=== PATIENT | male | born 1955 | race Caucasian/White ===

== ENCOUNTER 2017-06-29 11:30 | Inpatient (IN) | payer OTHER ==
[~2017-06-29] VITALS: Ht 180.3 cm; Wt 106.6 kg
[~2017-06-29 11:30] MED LIST: ASPIR 8181 MG PO; CALCITRIOL0.25 MCG PO; CLONIDINE HCL0.1 MG PO; DOXYCYCLINE HY100 M3; FLUDROCORTISON0.1 MG PO; FOLIC ACID0.4 MG; FOLIC ACID0.4 MG PO; IMDUR30 MG PO; ISOSORBIDE DINI20 MG; LEG-GESIC MULT473 ML; LEVEMIR 3M100 UNITS/ SC; LINEZOLID PO; LOPRESSOR25 MG; MAGOX 400400 MG PO; MEPERIDINE HCL50 MG PO; METOPROLOL TART25 MG PO; NEXIUM40 MG; NEXIUM40 MG PO; NIFEDIPINE ER30 M1 PO; NIFEDIPINE20 MG; NITROGLYCERIN0.4 MG; PRAVASTATIN SOD40 MG PO; REGLAN10 MG PO; REGLAN5 MG PO; SIMVASTATIN20 MG PO; SODIUM BICARBO650 MG PO; SODIUM BICARBON; STERIOD
--- OUTSIDE RECORDS SUMMARY | 2017-06-29 11:34 | XMS REPORT | Clinical Summary ---
Author Author [facility] Address Unknown Phone Unavailable Care Team Providers Care Clean Out Driller Name Role Phone Jesus Corbin MD PCP Allergies Active Allergy Reactions Severity Noted Date Comments Sulfamethoxazole-Trimetho Other (See Comments) 08/02/2016 Hypertension prim Clindamycin Other (See Comments) Medium 08/02/2016 Hypertension Codeine Shortness Of Breath High 08/02/2016 Fludrocortisone Other (See Comments) 11/03/2016 Hypertension Furosemide Other (See Comments) Medium 08/02/2016 hypertension Lisinopril Other (See Comments) Medium 08/02/2016 hypertension Morphine Shortness Of Breath High 08/02/2016 Hydrocodone-Acetaminophen Shortness Of Breath High 08/02/2016 Current Medications Prescription Sig. Disp. Refills Start End Date Status Date clonIDINE (CATAPRES) 0.1 Take 0.1 mg by mouth Active MG tablet daily as needed for high blood pressure (Hold for SBP<160). NIFEdipine XL (PROCARDIA Take 60 mg by mouth 2 Active XL) 30 MG 24 hr tablet (two) times a day. loperamide (IMODIUM) 2 mg Take 2 mg by mouth 3 Active capsule (three) times a week. On daialysis day([id number]) insulin lispro (HumaLOG) Inject under the skin 3 Active 100 unit/mL injection (three) times a day before meals. Sliding scale metoclopramide (REGLAN) Take 10 mg by mouth Active 10 MG tablet daily. NIFEdipine CC (ADALAT CC) Take 60 mg by mouth 2 11/04/19 Discontin 60 MG 24 hr tablet (two) times a day. 17 ued linezolid (ZYVOX) 600 mg Take 600 mg by mouth 2 11/04/19 12/19/19 tablet (two) times a day. 17 17 sodium bicarbonate 648 MG Take 648 mg by mouth 2 04/26/19 Discontin tablet (two) times a day. 18 ued metoprolol tartrate Take 25 mg by mouth daily 11/04/19 Discontin (LOPRESSOR) 25 mg tablet as needed. 17 ued atorvastatin (LIPITOR) 20 Take 20 mg by mouth 04/26/19 Discontin MG tablet nightly. Default OP ins 18 ued metoprolol tartrate Take 1 tablet (25 mg 60 tablet 0 11/06/19 (LOPRESSOR) 25 mg tablet total) by mouth 2 (two) 17 17 times a day for 30 days. NIFEdipine XL (PROCARDIA Take 1 tablet (60 mg 60 tablet 0 11/06/19 12/06/19 XL) 60 MG 24 hr tablet total) by mouth 2 (two) 17 17 times a day for 30 days. LINEZOLID (ZYVOX ORAL) Take by mouth. 02/12/20 Discontin 17 ued acetaminophen (TYLENOL) Take 2 tablets (650 mg 30 tablet 1 02/12/20 03/13/20 325 MG tablet total) by mouth every 6 17 17 (six) hours as needed for mild pain for up to 30 days. loperamide (IMODIUM) 2 mg Take 1 capsule (2 mg 12 capsule 1 02/12/20 02/29/20 Discontin capsule total) by mouth 4 (four) 17 17 ued times a day as needed for diarrhea for up to 30 days. ondansetron ODT Take 1 tablet (4 mg 24 tablet 1 02/12/20 02/29/20 Discontin (ZOFRAN-ODT) 4 MG total) by mouth every 8 17 17 ued disintegrating tablet (eight) hours as needed for nausea or vomiting for up to 30 days. clonIDINE (CATAPRES) 0.1 Take 1 tablet (0.1 mg 90 tablet 0 02/12/20 03/13/20 MG tablet total) by mouth 3 (three) 17 17 times a day for 30 days. clonIDINE HCl (CATAPRES) Take 1 tablet (0.2 mg 24 tablet 1 02/12/20 02/29/20 Discontin 0.2 MG tablet total) by mouth 3 (three) 17 17 ued times a day as needed for high blood pressure (if SBP>180) for up to 30 days. calcium gluconate 1 g in Infuse 1 g into a venous 1 each 0 02/12/20 02/12/20 Discontin sodium chloride 0.9 % 50 catheter once for 1 dose. 17 17 ued mL IVPB cefTRIAXone (ROCEPHIN) 1 Infuse 1 g into a venous 14 each 1 02/12/20 02/29/20 Discontin gram in 50 mL Add-Rochelle catheter daily for 14 17 17 ued days. sevelamer (RENVELA) 800 Take 3 tablets (2,400 mg 270 tablet 0 03/13/20 mg tablet total) by mouth 3 (three) 17 17 times a day with meals for 30 days. darbepoetin Inject 1 mL (60 mcg 4 mL 0 02/12/20 03/13/20 casimiro-polysorbate total) under the skin 17 17 (ARANESP) 60 mcg/mL once a week at 4pm for 30 injectionIndications: days Indications: ESRD on ESRD on Dialysis Dialysis. HEPARIN SODIUM,PORCINE 3 mL (3,000 Units total) 3 mL 0 02/12/20 (HEPARIN, PORCINE,) 1,000 by intra-catheter route 17 17 unit/mL injection once for 1 dose. HEPARIN SODIUM,PORCINE 3 mL (3,000 Units total) 3 mL 0 02/12/20 (HEPARIN, PORCINE,) 1,000 by intra-catheter route 17 17 unit/mL injection once for 1 dose. insulin lispro (HumaLOG) Inject 0-5 Units under 10 mL 12 02/12/20 100 unit/mL injection the skin 3 (three) times 17 17 a day with meals for 30 days. insulin lispro (HumaLOG) Inject 10 Units under the 10 mL 12 02/12/20 02/12/20 100 unit/mL injection skin once for 1 dose. 17 17 sennosides-docusate Take 1 tablet by mouth 2 24 tablet 1 02/12/20 sodium (SENOKOT-S) 8.6-50 (two) times a day as 17 17 mg per tablet needed for constipation for up to 30 days. hydromorPHONE (DILAUDID) Take 0.5 tablets (1 mg 02/12/20 02/29/20 Discontin 2 MG tablet total) by mouth every 6 17 17 ued (six) hours as needed for severe pain (score 7-10) for up to 30 days. Max Daily Amount: 4 mg clopidogrel (PLAVIX) 75 Take 1 tablet (75 mg 30 tablet 0 02/29/20 mg tablet total) by mouth daily for 17 18 30 days. metroNIDAZOLE (FLAGYL) Take 1 tablet (500 mg 42 tablet 0 05/17/19 500 MG tablet total) by mouth 3 (three) 18 18 times a day for 14 days. cefepime (MAXIPIME) IVPB Infuse 1 g into a venous 14 each 0 05/17/19 06/01/19 1 gram ADD-Rochelle in 50 catheter daily for 14 18 18 mL days. vancomycin 750 mg in Infuse 750 mg into a 1 each 0 05/17/19 sodium chloride 0.9% 250 venous catheter one time 18 18 mL IVPB after dialysis for 1 dose. 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 Peripheral vascular disorder 04/25/2017 Overview: Added automatically from request for surgery [id number] Atherosclerosis of lower [place] artery of left lower extremity with intermittent 04/25/2017 claudication Overview: Added automatically from request for surgery [id number] Thrombosis of arteriovenous dialysis fistula 02/20/2017 Osteomyelitis of right foot 01/27/2017 Complication of arteriovenous dialysis fistula 11/02/2016 Encounters Date Type Specialty Care Team Description 05/10/2017 Anesthesia General Surgery Nickie Rene MD Event 05/10/2017 Procedure Pass General Surgery 05/10/2017 Surgery General Surgery Tesha Fernandes MD Debridement FOOT, RESECTION METATARSAL-LEFT 05/05/2017 Procedure Pass General Surgery 05/04/2017 Anesthesia General Surgery Luis Thorpe MD Event 05/04/2017 Procedure Pass General Surgery 05/04/2017 Surgery General Surgery Bo Mcgarry MD left lower extremity angiogram possible intervention 05/03/2017 Orders Only Cardiovascular Adelaida Izquierdo MA Atherosclerosis of lower [place] artery of left lower extremity with intermittent claudication (Primary Dx); Peripheral vascular disorder 05/03/2017 Procedure Pass General Surgery 04/26/2017 Procedure Pass General Surgery 04/25/2017 [facility] General Surgery Rema Alexander MD Diabetic ulcer of left - Encounter Jesus Corbin MD midfoot associated with 05/17/2017 diabetes mellitus due to underlying condition, unspecified ulcer stage (Primary Dx); Pain; Open wnd of foot, left, subsequent encounter; Chronic osteomyelitis of left foot 04/04/2017 Emergency Emergency Medicine Alice Ayala Hyperkalemia (Primary Dx) Franc Gamino MD 03/09/2017 Telephone General Internal Medicine Destiny Gonzalez 02/23/2017 Anesthesia General Surgery Elder Kuo, Event MD 02/23/2017 Procedure Pass General Surgery 02/23/2017 Surgery General Surgery Bo Mcgarry MD RUManisha Thrombectomy with balloon angioplasty 02/20/2017 Emergency General Internal Medicine Mayela Frank, Thrombosis of - DO arteriovenous dialysis 02/28/2017 Pavan Calixto, fistula, initial MD encounter (Primary Dx); ESRD (end stage renal disease) on dialysis 02/01/2017 Anesthesia General Surgery Sue Martinez MD Event 02/01/2017 Procedure Pass General Surgery 02/01/2017 Surgery General Surgery Tesha Fernandes MD Amputation, Below Knee-Right 01/27/2017 Hospital General Internal Medicine Domingo Pedraza Go, Osteomyelitis of right - Encounter MD foot, unspecified type 02/11/2017 Jesus Corbin MD (Primary Dx); ESRD (end stage renal disease); Hyperkalemia; Secondary hypertension; Osteomyelitis of lower leg 11/02/2016 [facility] General Internal Medicine Mundo Little MD Complication of - Encounter Jonh Bowie, arteriovenous dialysis 11/05/2016 DO fistula, initial Allegra Perez MD encounter (Primary Dx); Jesus Corbin MD Hyperkalemia 08/02/2016 Hospital Radiology Julian Sal MD End stage renal disease; Encounter Cardiac device, implant, or graft complication, initial encounter 08/02/2016 Orders Only Cardiology Julian Sal MD 08/01/2016 Telephone General Surgery Destiny Hopson, RN 08/01/2016 Transcribe Access Julian Sal MD End stage renal disease Orders (Primary Dx); Cardiac device, implant, or graft complication, initial encounter after 06/28/2016 Family History Medical History Relation Name Comments No Known Problems Brother Diabetes Father No Known Problems Maternal Grandfather No Known Problems Maternal Grandmother Cancer Mother No Known Problems Paternal Grandfather No Known Problems Paternal Grandmother No Known Problems Sister Relation Name Status Comments Brother Father Maternal Grandfather Maternal Grandmother Mother Paternal Grandfather Paternal Grandmother Sister Social History Tobacco Use Types Packs/Day Years Used Date Former Smoker Cigarettes 5 35 Smokeless Tobacco: Never Used Tobacco Cessation: Counseling Given: No Alcohol Use Drinks/Week oz/Week Comments No Sex Assigned at Date Recorded Not on file Last Filed Vital Signs Vital Sign Reading Time Taken Blood Pressure 143/63 05/17/2017 10:37 PM [employer] Pulse 93 05/17/2017 10:37 PM [employer] Temperature 36.1 C (97 F) 05/17/2017 10:37 PM [employer] Respiratory Rate 20 05/17/2017 10:37 PM [employer] Oxygen Saturation 96% 05/17/2017 10:37 PM [employer] Inhaled Oxygen - - Concentration Weight 118 kg (261 lb 2 oz) 05/16/2017 4:31 AM [employer] Height 177.8 cm (5' 10") 04/25/2017 2:11 PM [employer] Body Mass Index 37.47 05/16/2017 4:31 AM [employer] Plan of Treatment Health Maintenance Due Date Last Done Comments FOOT EXAM 1964 OPHTHALMOLOGY EXAM 1964 URINE MICROALBUMIN 1964 COLONOSCOPY 2004 ZOSTER VACCINE 2014 INFLUENZA VACCINE 10/25/2017 Implants Implanted Type Area Barbering Instructor Device Expiration Model / Identifier Date Serial / Lot Device Vasclr Clsr Baln Cath 10ml Cardiovasc N/A: N/A CARDINAL 2018 [id number] / Lkng Syr 6fr 7fr [facility] / [id number] Implants [id number] Implanted: 05/04/2017 (Quantity not on file) Catheter Hard Tile Setter [place] 5fr 75cm Surgical N/A: N/A BSC PERIPHERAL 2017 [id number] 6x20mm 0.035in H-Pres - [id number] Implants; INTERVENTION 0 / Implanted: 11/03/2016 (Quantity not Expanders; VASCULAR MEGHA / on file) Extenders; [id number] Surgical Wires Drain Wnd Chnl 19fr 1/4in Rnd Hbls Surgical N/A: N/A [employer] [id number] / Fl-Flut W/ 1/4in Trocar - [id number] Implants; DIVISION / Implanted: 02/01/2017 (Quantity not Expanders; [id number] on file) Extenders; Surgical Wires Tray Cath Dialys Curved 3lumen 20cm Surgical N/A: N/A BARD ACCESS [id number] / 13fr Power-Trialysis - [id number] Implants; SYSTEMS / Implanted: 02/21/2017 (Quantity not Expanders; [id number] on file) Extenders; Surgical Wires Catheter Angio Poultry Eviscerator Ii 5fr Surgical N/A: N/A [facility] PERIPHERAL [id number] 0.038in 65cm Hf Contra-L - Implants; INTERVENTION / [id number] Expanders; VASCULAR MEGHA / Implanted: 05/04/2017 (Quantity not Extenders; on file) Surgical Wires Guidewire Angio Stiff Shaft Angld Surgical N/A: N/A COOK PERIPHERAL 10/21/2019 [id number] / [employer] .035inx - Stents INTERVENTION / [id number] Implanted: 05/04/2017 (Quantity not on file) Procedures Procedure Name Priority Date/Time Associated Diagnosis Comments HEMODIALYSIS Routine 05/16/2017 9:20 AM [employer] HEMODIALYSIS Routine 05/11/2017 11:32 AM [employer] VT AN ELECTIVE Routine 05/10/2017 SUPRAGLOTTIC AIRWAY 4:14 PM [employer] Procedure Note - Nickie Rene MD - 05/10/2017 4:14 PM [employer]TERN[employer] Airway Date/Time: 05/10/2017 4:00 PM Performed by: NICKIE RENE Authorized by: NICKIE RENE Location: OR Urgency: Elective Difficult Airway: No Anesthesio logist: NICKIE RENE Performed by: anesthesio logist Preoxygena inderjit with 100% O2: Yes C-spine Precaution s Maintained Throughout : Yes Mask Ventilatio n: Easy mask Final Airway Type: Supraglott ic airway Final LMA: Classic LMA Size: 5 Number of Attempts at Approach: 1 CV HYBRID OR FLUOROSCOPY Routine 05/04/2017 Results for this 3:05 PM [employer] procedure are in the results section. HEMODIALYSIS Routine 05/04/2017 7:52 AM [employer] ECHOCARDIOGRAM 2D Routine 05/02/2017 Results for this COMPLETE W MMODE SPECTRAL 3:45 PM [employer] procedure are in the COLOR DOPPLER (59077) results section. HEMODIALYSIS Routine 05/02/2017 12:21 PM [employer] HEMODIALYSIS Routine 04/28/2017 11:09 AM [employer] HEMODIALYSIS Routine 04/26/2017 4:29 PM [employer] HEMODIALYSIS Routine 02/27/2017 8:51 AM [employer] HEMODIALYSIS Routine 02/25/2017 4:31 PM PATTERN[employer]ICE [employer] CV HYBRID OR FLUOROSCOPY Routine 02/23/2017 Results for this 1:00 PM [employer] procedure are in the results section. HEMODIALYSIS Routine 02/10/2017 12:29 PM [employer]ICE [employer]OD HEMODIALYSIS Routine 02/08/2017 3:16 PM [employer]ICE [employer]OD HEMODIALYSIS Routine 02/06/2017 7:43 AM [employer]OD HEMODIALYSIS Routine 01/30/2017 8:05 AM PATTERN[employer]ICE [employer]OD HEMODIALYSIS Routine 01/29/2017 11:38 AM PATTERNMAKER APPRENTICE WOOD VT CRITICAL CARE, E/M Routine 01/28/2017 Results for this 30-74 MINUTES 2:20 AM CDT procedure are in the results section. HEMODIALYSIS Routine 11/03/2016 5:39 PM CDT VT CRITICAL CARE, E/M Routine 11/03/2016 Results for this 30-74 MINUTES 1:58 PM CDT procedure are in the results section. after 06/28/2016 Results * CBC with platelet and differential (05/17/2017 10:03 PM) Only the most recent of 36 results within the time period is included. Component Value Ref Range WBC 7.6 4.2 - 11.0 k/uL RBC 3.54 (L) 4.04 - 5.86 m/uL HGB 10.1 (L) 13.0 - 17.3 g/dL HCT 32.9 (L) 34.0 - 45.0 % MCV 92.9 80.0 - 98.0 fL MCH 28.5 27.0 - 34.0 pg MCHC 30.7 (L) 31.5 - 36.5 g/dL RDW - SD 55.8 (H) 37.0 - 51.0 fL MPV 8.7 7.4 - 10.4 fL Platelet count 192 150 - 400 k/uL Nucleated RBC 0.00 /100 WBC Neutrophils 71.1 (H) 36.0 - 66.0 % Lymphocytes 14.0 (L) 24.0 - 44.0 % Monocytes 7.7 (H) 0.0 - 6.0 % Eosinophils 5.3 0.0 - 6.0 % Basophils 1.6 (H) 0.0 - 1.2 % Immature granulocytes 0.3 0.0 - 1.0 % Specimen Performing Laboratory Blood [facility] [place] [place] [facility] [address] [place] [address] * POC glucose (05/17/2017 8:55 PM) Only the most recent of 171 results within the time period is included. Component Value Ref Range POC glucose 179 (H) 65 - 100 mg/dL Comment: Meter ID: [id number] Lead Cargo Mover: Kael Borja Specimen Performing Laboratory [facility] [place] [facility] [address] [place] [address] * Prepare RBC, 1 Units (05/17/2017 12:51 PM) Only the most recent of 8 results within the time period is included. Component Value Ref Range Product name Red Blood Cells -1, Leukored Unit number [id number] Product code [id number] Dispense status Transfused Blood expiration date 148892254031 Blood type code 6200 Blood type A POSITIVE Specimen Performing Laboratory [facility] OF PATHOLOGY AND [facility] MED[facility] [address] [place] [address] * Type and screen (05/17/2017 12:51 PM) Only the most recent of 9 results within the time period is included. Component Value Ref Range ABO grouping A Rh type POS Antibody screen (gel) NEG Specimen Performing Laboratory Blood [facility] PATHOLOG[facility] AND [facility] [address] [place] [address] * Estimated GFR (05/17/2017 6:23 AM) Only the most recent of 50 results within the time period is included. Component Value Ref Range GFR Non Af Amer 13 (A) mL/min/1.73 m2 GFR Af Amer 15 (A) mL/min/1.73 m2 Comment: Chronic kidney disease: <60 mL/min/1.73m2 Kidney failure: <15 mL/min/1.73m2 The estimated GFR is calculated from the IDMS-traceable Modification of Diet in Renal Disease Equation. The accuracy of the calculation is poor when the creatinine is normal. Calculated values >90 mL/min/1.73m2 are not reported. This equation has not been validated in children (<18 years), women, the elderly (>70 years), or ethnic groups other than Caucasians and Americans. Specimen Performing Laboratory Plasma specimen [facility] [place] [facility] [place]IC[facility] [address] [place] [address] * Basic metabolic panel (05/17/2017 6:23 AM) Only the most recent of 33 results within the time period is included. Component Value Ref Range Sodium 135 135 - 150 mEq/L Potassium 4.9 3.5 - 5.0 mEq/L Chloride 97 (L) 100 - 109 mEq/L CO2 30 24 - 32 mmol/L Anion gap 8 7 - 15 mEq/L Comment: Starting from June , anion gap calculation no longer incorporates potassium. Please note the change. BUN 41 (H) 7 - 18 mg/dL Creatinine 4.7 (H) 0.8 - 1.5 mg/dL Glucose 192 (H) 65 - 100 mg/dL Calcium 8.4 (L) 8.6 - 10.7 mg/dL Specimen Performing Laboratory Plasma specimen [facility] [place] [facility] [place]IC[facility] [address] [place] [address] * Surgical pathology request (05/10/2017 9:16 AM) Only the most recent of 3 results within the time period is included. Component Value Ref Range Surgical pathology report See link below for PDF Lab Report Result status This is Final Report to [id number] Specimen Performing Laboratory [facility] [place] [facility]IC[facility] [address] * Vancomycin level, random (05/08/2017 5:18 AM) Only the most recent of 4 results within the time period is included. Component Value Ref Range Vancomycin, random 16.4 ug/mL Comment: Therapeutic Ranges: Peak 30.0 - 40.0 ug/mL Trough 10.0 - 20.0 ug/mL Specimen Performing Laboratory Blood [facility] [place] [facility] [place]IC[facility] [address] * Renal function panel (05/08/2017 5:18 AM) Only the most recent of 13 results within the time period is included. Component Value Ref Range Sodium 133 (L) 135 - 150 mEq/L Potassium 4.7 3.5 - 5.0 mEq/L Chloride 94 (L) 100 - 109 mEq/L CO2 28 24 - 32 mmol/L Anion gap 11 7 - 15 mEq/L Comment: Starting from June , anion gap calculation no longer incorporates potassium. Please note the change. BUN 49 (H) 7 - 18 mg/dL Creatinine 6.4 (H) 0.8 - 1.5 mg/dL Glucose 143 (H) 65 - 100 mg/dL Calcium 8.1 (L) 8.6 - 10.7 mg/dL Albumin 2.2 (L) 3.2 - 5.0 g/dL Phosphorus 5.6 (H) 2.5 - 4.5 mg/dL Specimen Performing Laboratory Plasma specimen [facility] [place] [facility] [place] [facility]IC[facility] [address] [place] [address] * Hybrid or fluoroscopy (05/04/2017 3:05 PM) Narrative See operative report for the same day * Potassium level (05/04/2017 1:50 PM) Component Value Ref Range Potassium 3.8 3.5 - 5.0 mEq/L Specimen Performing Laboratory Plasma specimen [facility] [place] [facility] [place]IC[facility] [address] [place] [address] * PV physiologic arterial lower ext bilat complete w ann marie (05/03/2017 1:34 PM) Specimen Performing Laboratory [facility] [address] [place] [id number] Narrative EXAMINATION:PV PHYSIOLOGIC ARTERIAL LOWER EXTREMITY COMPLETE CLINICAL HISTORY:ulcer left foot COMPARISON:None. EXAMINATION:PV PHYSIOLOGIC ARTERIAL LOWER EXTREMITY COMPLETE CLINICAL HISTORY:ulcer left foot TECHNIQUE: Systolic pressures were obtained in the upper extremities. Segmental pressures were also obtained in the high thigh, low thigh, calf, ankle, and great toe. Ankle-brachial indices and toe brachial indices were obtained. Pulse volume recordings (PVRs) were obtained from the high thigh, low thigh, calf, ankle, and first toe. Doppler waveforms were obtained from the femoral, popliteal, posterior tibial, dorsalis pedis, and great toe. COMPARISON:Lower extremity arterial Doppler 04/30/2017. IMPRESSION:Mild PAD involving the posterior tibial arterial distribution. FINDINGS: Right leg BKA. Left high thigh pressures could not be obtained due to body habitus. Lower thigh pressures were noncompressible. VPR waveforms show loss of the dicrotic notch, with diminished amplitude at the level of the digit. LEFT LEG: Pressures Brachial: 147 mmHg Low thigh noncompressible. Calf: 98 mmHg Posterior tibial: 109 mmHg Dorsalis pedis: 135 mmHg First toe: 77 mmHg PT ANN MARIE: 0.74 DP ANN MARIE: 0.92 TBI: 0.52 VPR Waveform Low thigh: Loss of the dicrotic notch, good amplitude without delayed upstroke Catheter: Loss of the dicrotic notch, good amplitude without delayed upstroke Ankle: Loss of the dicrotic notch, good amplitude without delayed upstroke. Digit: Diminished amplitude. [facility]-[id number] ANN MARIE Guidelines: >1.4: Calcified Vessel 0.9-1.4: Normal 0.7-0.89: Mild PAD 0.51-0.69: Moderate PAD <0.5: Severe PAD TBI Guidelines: <0.6: Normal 0.34-0.59: Mild PAD 0.12-0.34: Moderate PAD <0.11: Severe PAD Procedure Note [facility], Radiology Results Incoming - 05/03/2017 2:08 PM [employer]TERN[employer] EXAMINATION: PV PHYSIOLOGIC ARTERIAL LOWER EXTREMITY COMPLETE CLINICAL HISTORY: ulcer left foot COMPARISON: None. EXAMINATION: PV PHYSIOLOGIC ARTERIAL LOWER EXTREMITY COMPLETE CLINICAL HISTORY: ulcer left foot TECHNIQUE: Systolic pressures were obtained in the upper extremities. Segmental pressures were also obtained in the high thigh, low thigh, calf, ankle, and great toe. Ankle-brachial indices and toe brachial indices were obtained. Pulse volume recordings (PVRs) were obtained from the high thigh, low thigh, calf, ankle, and first toe. Doppler waveforms were obtained from the femoral, popliteal, posterior tibial, dorsalis pedis, and great toe. COMPARISON: Lower extremity arterial Doppler 04/30/2017. IMPRESSION: Mild PAD involving the posterior tibial arterial distribution. FINDINGS: Right leg BKA. Left high thigh pressures could not be obtained due to body habitus. Lower thigh pressures were noncompressible. VPR waveforms show loss of the dicrotic notch, with diminished amplitude at the level of the digit. LEFT LEG: Pressures Brachial: 147 mmHg Low thigh noncompressible. Calf: 98 mmHg Posterior tibial: 109 mmHg Dorsalis pedis: 135 mmHg First toe: 77 mmHg PT ANN MARIE: 0.74 DP ANN MARIE: 0.92 TBI: 0.52 VPR Waveform Low thigh: Loss of the dicrotic notch, good amplitude without delayed upstroke Catheter: Loss of the dicrotic notch, good amplitude without delayed upstroke Ankle: Loss of the dicrotic notch, good amplitude without delayed upstroke. Digit: Diminished amplitude. [facility]-[id number] ANN MARIE Guidelines: >1.4: Calcified Vessel 0.9-1.4: Normal 0.7-0.89: Mild PAD 0.51-0.69: Moderate PAD <0.5: Severe PAD TBI Guidelines: <0.6: Normal 0.34-0.59: Mild PAD 0.12-0.34: Moderate PAD <0.11: Severe PAD * Partial thromboplastin time, activated (05/03/2017 4:47 AM) Only the most recent of 5 results within the time period is included. Component Value Ref Range PTT 34.1 23.0 - 36.0 sec Comment: PTT therapeutic range for unfractionated heparin is 61.0-112.0 seconds which corresponds to Anti-Xa 0.3-0.7 U/ml. Note: Change in Panic Value The PTT Panic Value is changing from 110 sec. to 100 sec. due to new instrumentation and reagents. Correlation studies have been performed to validate this result. Specimen Performing Laboratory Blood [facility] [place] [facility] [place] [address] [place] [address] * Prothrombin time with INR (05/03/2017 4:47 AM) Only the most recent of 6 results within the time period is included. Component Value Ref Range Prothrombin time 14.6 12.0 - 15.0 sec INR 1.12 0.92 - 1.12 Comment: For patients on anticoagulant therapy, reference ranges below: Indication: INR Value Treatment of Venous Thrombosis, 2.0-3.0 pulmonary emboli, or prophylaxis of a venous thrombosis, or systemic emboli. High dose, high risk patients 3.0-4.5 with mechanical valves. NOTE: INR values over 3.0 are sometimes associated with gastrointestinal hemorrhage, especially values over 4.0. Specimen Performing Laboratory Blood [facility] [place] [facility] [place] [place] [address] [place] [address] * Echocardiogram complete w contrast and 3D if needed (05/02/2017 3:45 PM) Component Value Ref Range Velocity Ratio (V1/V2) 0.63 m/s IVS,d 0.87 0.6 - 1.2 cm EF 43.60 % LVPWD,d 1.19 cm AoV Mean PG 4.30 mmHg AV LVOT peak gradient 3.38 mmHg MV valve area p 1/2 2.95 cm2 method E/A ratio 0.86 E wave decelartion time 339.80 msec LVOT Diam,S 1.87 cm LVOT area 2.75 cm2 LVOT Vmax 0.95 m/s LVOT VTI 0.22 m AoV Peak PG 8.69 mmHg MV Peak E Rahul 0.86 m/s MV stenosis pressure 1/2 74.51 ms time MV Peak A Rahul 1.00 m/s AoV Area, Vmax 1.72 cm2 AoV Area, VTI 1.96 cm2 AoV Vmax 1.52 m/s IVS/LVPW,2D 0.73 Left Atrium Dimension 3.43 cm Anterior LV,d 4.81 cm LV,s 3.88 cm LV Vol,d A4C 135.07 ml LV Vol,s A4C 68.91 ml MV E A ratio 0.94 mmHg LV CO 3.59 l/min LV SYS VOL 60.85 ml LV TALAMANTES VOL 107.89 ml LV SV Teich 2D 47.04 ml LVOT CO 4.49 l/min LVOT HR for LVOT CO 73.00 bpm AoV Vmn 0.97 IVS s 2D 1.55 LV FS Cube 2D 21.54 LV FS Teich 2D 21.54 AoV VTI 0.30 m LV EF,2D 51.70 % LV EF,A4C 48.98 % Ben[place]o [place],d A4C 8.75 cm Benigno [place],s A4C 6.70 cm LV SV,A4C 66.16 % MV AE ratio 1.06 LVOT Vmn 0.68 Aov area Vmn 1.68 cm2 LV Area d A4C 38.00 cm2 LV Area s A4C 23.26 cm2 LV EF A L A4C 51.08 % LVOT mean grad 2.00 mmHg IVS pct thck PLAX 77.83 % LV SV Cube 2D 57.43 ml LV vol d cube 2D 111.08 ml LV vol s cube 2D 53.65 ml LVPW pct thck PLAX 2.79 % LVPW s PLAX 1.22 cm MV Decel slope 2.52 m/s2 Specimen Performing Laboratory [facility] [address] [place] [address] Narrative The left ventricle chamber size is normal. There is mild left ventricular Left Ventricular ejection fraction is 55 - 60%. Right ventricular size is normal. * ECG 12 lead (05/01/2017 3:21 PM) Only the most recent of 10 results within the time period is included. Component Value Ref Range Ventricular rate 87 Atrial rate 87 VT interval 232 QRSD interval 140 QT interval 400 QTC interval 481 QRS axis 1 -18 T wave axis 246 EKG impression Sinus rhythm with 1st degree AV block-Nonspecific intraventricular block-Lateral infarct , age undetermined-Inferior infarct (cited on or before 04-APR-2017)-Abnormal ECG-In automated comparison with ECG of 04-APR-2017 16:28,-QRS duration has increased-Lateral infarct is now [id number] change in ST segment in Inferior leads-Nonspecific T wave abnormality has replaced inverted T waves in Inferior leads- Specimen Performing Laboratory [facility] [address] [place] [address] * Us duplex arterial lower extremity (04/30/2017 9:09 PM) Only the most recent of 2 results within the time period is included. Specimen Performing Laboratory [facility] [address] [place] [address] Narrative US DUPLEX ARTERIAL LOWER EXTREMITY LEFT CLINICAL INDICATION:ulcer left foot COMPARISON:None. COMMENTS: Color and spectral Doppler imaging of the left lower extremity was performed. There is triphasic flow involving the left external iliac artery as well as the common femoral and superficial femoral arteries. There is similar triphasic flow involving the proximal popliteal artery but with decreased velocity and blunted as well as broadened waveforms in the distal popliteal artery consistent with intervening atherosclerosis. Similar blunted monophasic waveforms are present involving the posterior tibial artery in the proximal, mid, and distal calf. Flow is present through the dorsalis pedis. Consider further evaluation with angiography in follow-up as warranted. There are no findings for embolus or occlusion. Velocities are as follows (centimeter per second): External iliac artery: 137 Common femoral artery: 114 Superficial femoral artery-proximal: 149 Superficial femoral artery-mid: 162 Superficial femoral artery-distal: 97 Popliteal artery-proximal: 97 Popliteal artery-mid: 87 Popliteal artery-distal: 57 Posterior tibial artery-proximal: 76 Posterior tibial artery-mid: 109 Posterior tibial artery-distal: 107 Anterior tibial artery-proximal: 53 Anterior tibial artery-mid: 42 Anterior tibial artery-distal: 62 Dorsalis pedis artery: 20 IMPRESSION: Atherosclerosis involving the popliteal artery with blunted monophasic flow through the distal popliteal artery and posterior tibial artery to the dorsalis pedis as described. No findings for occlusion or embolus. 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 COMMENTS: Color and spectral Doppler imaging of the left lower extremity was performed. There is triphasic flow involving the left external iliac artery as well as the common femoral and superficial femoral arteries. There is similar triphasic flow involving the proximal popliteal artery but with decreased velocity and blunted as well as broadened waveforms in the distal popliteal artery consistent with intervening atherosclerosis. Similar blunted monophasic waveforms are present involving the posterior tibial artery in the proximal, mid, and distal calf. Flow is present through the dorsalis pedis. Consider further evaluation with angiography in follow-up as warranted. There are no findings for embolus or occlusion. Velocities are as follows (centimeter per second): External iliac artery: 137 Common femoral artery: 114 Superficial femoral artery-proximal: 149 Superficial femoral artery-mid: 162 Superficial femoral artery-distal: 97 Popliteal artery-proximal: 97 Popliteal artery-mid: 87 Popliteal artery-distal: 57 Posterior tibial artery-proximal: 76 Posterior tibial artery-mid: 109 Posterior tibial artery-distal: 107 Anterior tibial artery-proximal: 53 Anterior tibial artery-mid: 42 Anterior tibial artery-distal: 62 Dorsalis pedis artery: 20 IMPRESSION: Atherosclerosis involving the popliteal artery with blunted monophasic flow through the distal popliteal artery and posterior tibial artery to the dorsalis pedis as described. No findings for occlusion or embolus. Thank you for allowing us to participate in the care of your patient [facility]-[id number] * MRI Foot Wo Contrast Left (04/29/2017 11:25 AM) Specimen Performing Laboratory [facility] [address] [place] [address] Narrative EXAMINATION:MRI FOOT WO CONTRAST LEFT CLINICAL HISTORY:BONE PAINFOOT TECHNIQUE:Multiplanar multisequence MR imaging of theleft footwas performed without contrast. COMPARISON:X-ray of the left foot dated 04/25/2017 IMPRESSION: 1.There is a displaced fracture involving the distal left fifth metatarsal diaphysis. The distal fifth metatarsal and fifth metatarsophalangeal joint are displaced medially. There is abnormal signal involving the fifth metatarsal and the displaced proximal fifth phalanx and fifth metatarsophalangeal joint. There is a overlying skin ulceration with a tract that extends to the abnormal signal in the fifth metatarsal and displaced fifth metatarsophalangeal joint. The findings are consistent with osteomyelitis. 2.Benign cystic changes are present in the proximal second metatarsal and medial cuneiform. There is no other fracture. No other areas of suspicious marrow signal are identified to suggest osteomyelitis. 3.The intrinsic muscles are atrophic and fatty replaced. There is no evidence of deep soft tissue fluid collection or abscess. Mild diffuse edema is present. [facility]-[id number] posterior Procedure Note [facility], Radiology Results Incoming - 04/29/2017 12:26 PM PATTERNMAKER APPRENTICE WOOD EXAMINATION: MRI FOOT WO CONTRAST LEFT CLINICAL HISTORY: BONE PAIN FOOT TECHNIQUE: Multiplanar multisequence MR imaging of the left foot was performed without contrast. COMPARISON: X-ray of the left foot dated 04/25/2017 IMPRESSION: 1. There is a displaced fracture involving the distal left fifth metatarsal diaphysis. The distal fifth metatarsal and fifth metatarsophalangeal joint are displaced medially. There is abnormal signal involving the fifth metatarsal and the displaced proximal fifth phalanx and fifth metatarsophalangeal joint. There is a overlying skin ulceration with a tract that extends to the abnormal signal in the fifth metatarsal and displaced fifth metatarsophalangeal joint. The findings are consistent with osteomyelitis. 2. Benign cystic changes are present in the proximal second metatarsal and medial cuneiform. There is no other fracture. No other areas of suspicious marrow signal are identified to suggest osteomyelitis. 3. The intrinsic muscles are atrophic and fatty replaced. There is no evidence of deep soft tissue fluid collection or abscess. Mild diffuse edema is present. [facility]-[id number] posterior * Insert peripheral IV (04/28/2017 3:25 PM) Edward Alexander MD 04/28/20173:25 PM Insert peripheral IV Date/Time: 04/25/2017 9:02 PM Performed by: REMA ALEXANDER Authorized by: REMA ALEXANDER Consent: Verbal consent obtained. Risks and benefits: risks, benefits and alternatives were discussed Consent given by: patient Patient understanding: patient states understanding of the procedure being performed Patient consent: the patient's understanding of the procedure matches consent given Procedure consent: procedure consent matches procedure scheduled Relevant documents: relevant documents present and verified Test results: test results available and properly labeled Site marked: the operative site was marked Imaging studies: imaging studies available Required items: required blood products, implants, devices, and special equipment available Patient identity confirmed: verbally with patient and arm band Preparation: Patient was prepped and draped in the usual sterile fashion. Local anesthesia used: no Anesthesia: Local anesthesia used: no Sedation: Patient sedated: no Patient tolerance: Patient tolerated the procedure well with no immediate complications Comments: Ultrasound guided IV placed in the left arm. * Aerobic culture (04/28/2017 3:05 PM) Only the most recent of 3 results within the time period is included. Component Value Ref Range Aerobic culture isolate Staphylococcus, coagulase negative Moderate (A) Comment: Specimen Information Specimen Source: Wound Specimen Site: Wound Aerobic culture isolate Enterococcus faecalis Occasional Enterococcus resistant to high levels of Gentamicin. Susceptibility results do not indicate synergy with Penicillins and Vancomycin. This organism is Vancomycin Sensitive. (A) Specimen Performing Laboratory Wound [facility] DEPARTMENT OF PATHOLOGY AND GENOMIC MEDICINE [address] [place] [address] Organism Antibiotic Method Susceptibility Enterococcus faecalis Ampicillin KAYLA 2 mcg/mL: Susceptible Enterococcus faecalis Erythromycin KAYLA >4 mcg/mL: Resistant Enterococcus faecalis Gentamicin-Syn KAYLA >500 mcg/mL: Resistant Enterococcus faecalis Linezolid KAYLA <=1 mcg/mL: Susceptible Enterococcus faecalis Minocycline KAYLA >8 mcg/mL: Resistant Enterococcus faecalis Vancomycin KAYLA 1 mcg/mL: Susceptible * Gram stain (04/28/2017 3:05 PM) Only the most recent of 3 results within the time period is included. Component Value Ref Range Gram stain isolate Occasional WBC's Few Gram negative rods Occasional Gram positive rods Many Gram positive cocci in clusters Comment: Specimen Information Specimen Source: Wound Specimen Site: Wound Specimen Performing Laboratory Wound [facility] DEPARTMENT OF PATHOLOGY AND GENOMIC MEDICINE [address] [place] [id number] * Anaerobic culture (04/28/2017 3:05 PM) Only the most recent of 3 results within the time period is included. Component Value Ref Range Anaerobic culture isolate No anaerobic organisms isolated. Comment: Specimen Information Specimen Source: Wound Specimen Site: Wound Specimen Performing Laboratory Wound [facility] DEPARTMENT OF PATHOLOGY AND GENOMIC MEDICINE [address] [place] [id number] * Smear review (04/28/2017 4:44 AM) Only the most recent of 5 results within the time period is included. Component Value Ref Range Platelet slide review Edward adequate Anisocytosis Moderate Polychromasia Slight Schistocytes Occasional Target cells Occasional Specimen Performing Laboratory [facility] [place] [place] [address] [place] [address] * Phosphorus level (04/28/2017 4:44 AM) Only the most recent of 10 results within the time period is included. Component Value Ref Range Phosphorus 8.2 (HH) 2.5 - 4.5 mg/dL Comment: Results called to and read back by KAILEY PORTILLO/Praneeth at 04/28/2017 06:21 by _IV_. Specimen Performing Laboratory Plasma specimen [facility] [place] [facility] [address] [place] [address] * Magnesium level (04/28/2017 4:44 AM) Only the most recent of 11 results within the time period is included. Component Value Ref Range Magnesium 2.10 1.60 - 2.40 mg/dL Specimen Performing Laboratory Plasma specimen [facility] [place] [facility] [address] [place] [place] [address] * Hepatitis B surface antigen (04/26/2017 10:10 AM) Only the most recent of 4 results within the time period is included. Component Value Ref Range Hepatitis B surface Ag Non-reactive Non-reactive Specimen Performing Laboratory Blood [facility] [place] [facility] [address] [place] [place] [address] * Lactic acid level, SEPSIS - Now and repeat 2x every 3 hours (04/26/2017 12:48 AM) Only the most recent of 2 results within the time period is included. Component Value Ref Range Lactic acid 0.6 0.5 - 2.2 mmol/L Specimen Performing Laboratory Blood [facility] [place] [address] [place] [place] [address] * XR Foot 3+ Vw Left (04/25/2017 5:32 PM) Specimen Performing Laboratory [facility] [address] [place] [address] Narrative EXAMINATION:XR FOOT 3VW LEFT CLINICAL HISTORY:left diabetic foot ulcer COMPARISON:None. IMPRESSION: There is a displaced fracture of the distal fifth metatarsal where there is an apparent soft tissue ulceration. This may represent superimposed osteomyelitis. There is diffuse soft tissue swelling. [id number] Procedure Note Hm Interface, Radiology Results Incoming - 04/25/2017 5:42 PM [employer]TERNMAKER [employer]ICE [employer] EXAMINATION: XR FOOT 3 VW LEFT CLINICAL HISTORY: left diabetic foot ulcer COMPARISON: None. IMPRESSION: There is a displaced fracture of the distal fifth metatarsal where there is an apparent soft tissue ulceration. This may represent superimposed osteomyelitis. There is diffuse soft tissue swelling. [id number] * Blood culture, aerobic & anaerobic (04/25/2017 3:54 PM) Only the most recent of 4 results within the time period is included. Component Value Ref Range Blood culture isolate No growth after 5 days of incubation. Comment: Specimen Information Specimen Source: Blood Specimen Site: Peripheral Forearm Left Specimen Performing Laboratory Blood [facility] DEPARTMENT OF PATHOLOGY AND GENOMIC MEDICINE [address] [place] [address] * Comprehensive metabolic panel (04/25/2017 3:47 PM) Only the most recent of 5 results within the time period is included. Component Value Ref Range Sodium 130 (L) 135 - 150 mEq/L Potassium 4.3 3.5 - 5.0 mEq/L Chloride 91 (L) 100 - 109 mEq/L CO2 29 24 - 32 mmol/L Anion gap 10 7 - 15 mEq/L Comment: Starting from June , anion gap calculation no longer incorporates potassium. Please note the change. BUN 39 (H) 7 - 18 mg/dL Creatinine 5.5 (H) 0.8 - 1.5 mg/dL Glucose 177 (H) 65 - 100 mg/dL Calcium 8.7 8.6 - 10.7 mg/dL Protein 8.7 (H) 6.3 - 8.2 g/dL Albumin 2.7 (L) 3.2 - 5.0 g/dL A/G ratio 0.4 (L) 0.7 - 3.8 Alkaline phosphatase 111 30 - 120 U/L AST 11 (L) 15 - 37 U/L ALT 18 (L) 30 - 65 U/L Total bilirubin 0.3 0.2 - 1.2 mg/dL Specimen Performing Laboratory Plasma specimen [facility] [place]IC[facility] [address] [place] [address] * ECG ED Preliminary Interpretation - NOT AN ORDER (04/13/2017 8:22 AM) Only the most recent of 4 results within the time period is included. Narrative Ayala Jenkins Jr., MD 04/13/20178:22 AM ECG ED Preliminary Interpretation - Not an Order Performed by: AYALA JENKINS JR. Authorized by: AYALA JENKINS JR. ECG reviewed by ED Physician in the absence of a staple shear operator: yes Previous ECG: Previous ECG:Unavailable Interpretation: Interpretation: abnormal Rate: ECG rate:88 ECG rate assessment: normal Rhythm: Rhythm: sinus rhythm Ectopy: Ectopy: none QRS: QRS axis:Normal QRS intervals:Normal Conduction: Conduction: normal ST segments: ST segments:Normal T waves: T waves: inverted Inverted:V6 Q waves: Q waves:III and aVF Comments: EKG completed at 1831 04/04/2017 * IR Endovascular Consult (02/27/2017 4:06 PM) Specimen Performing Laboratory [facility] [address] [place] [address] Narrative EXAMINATION:IR ENDOVASCULAR CONSULT REASON FOR EXAMINATION:Renal Dialysis COMPARISON: None FINDINGS: The skin overlying the left infraclavicular region was prepped and draped in a sterile manner. The temporary dialysis catheter was then removed. The patient tolerated the procedure well. Hemostasis was obtained. The patient will be discharged from the radiology department in stable condition. IMPRESSION: 1. Removal of a nontunneled temporary hemodialysis catheter [id number] Procedure Note Interface, Radiology Results Incoming - 02/27/2017 7:00 PM PATTERNMAKER AP[employer]ENTICE WOOD EXAMINATION: IR ENDOVASCULAR CONSULT REASON FOR EXAMINATION: Renal Dialysis COMPARISON: None FINDINGS: The skin overlying the left infraclavicular region was prepped and draped in a sterile manner. The temporary dialysis catheter was then removed. The patient tolerated the procedure well. Hemostasis was obtained. The patient will be discharged from the radiology department in stable condition. IMPRESSION: 1. Removal of a nontunneled temporary hemodialysis catheter [id number] * Hybrid or fluoroscopy (02/23/2017 1:00 PM) Narrative See operative report for the same day * XR Chest 1 Vw Portable (02/23/2017 7:40 AM) Specimen Performing Laboratory [facility] [address] [place] [address] Narrative EXAMINATION:XR CHEST 1 VW PORTABLE CLINICAL HISTORY:Pre-Op XR CHEST 1 VW PORTABLEimages are submitted COMPARISON:Chest radiograph dated February 09, 2016. FINDINGS: Lines/tubes:Left internal jugular central line was tip ending within the SVC. Heart and mediastinum:Cardiomegaly and pulmonary venous congestion. Lungs:Low lung volume. There is no evidence of pneumonia or pulmonary edema. Pleura:There is no pleural effusion or pneumothorax. Bones:unremarkable. IMPRESSION: Negative for acute cardiopulmonary disease. [id number] Procedure Note Interface, Radiology Results Incoming - 02/23/2017 8:07 AM PATTERNMAKER AP[employer]ENTICE WOOD EXAMINATION: XR CHEST 1 VW PORTABLE CLINICAL HISTORY: Pre-Op XR CHEST 1 VW PORTABLE images are submitted COMPARISON: Chest radiograph dated February 09, 2016. FINDINGS: Lines/tubes: Left internal jugular central line was tip ending within the SVC. Heart and mediastinum: Cardiomegaly and pulmonary venous congestion. Lungs: Low lung volume. There is no evidence of pneumonia or pulmonary edema. Pleura: There is no pleural effusion or pneumothorax. Bones: unremarkable. IMPRESSION: Negative for acute cardiopulmonary disease. [id number] * IR Central Catheter Placement Replace Removal Fluoroscopy (02/21/2017 2:36 PM ) Specimen Performing Laboratory [facility] [address] [place] [address] Narrative PERFORMING RADIOLOGISTS: Erlin Gonzalez MD ASSISTANTS: None. ANESTHESIA: No sedation was administered. Lidocaine 1% and lidocaine 1% with epinephrine were used for local anesthetic. PRE PROCEDURE DIAGNOSIS: Need for dialysis. POST PROCEDURE DIAGNOSIS: Status post placement of non tunneled dialysis catheter. PROCEDURE: 1.Ultrasound-guided access of left internal jugular vein. 2.Placement of left internal jugular approach dual glide13 Scottish non- tunneled hemodialysis catheter. PROCEDURE IN DETAIL: Written informed consent was obtained prior to the procedure. All elements of maximal sterile barrier technique were followed. The patient's left neck and upper chest were sterilely prepared and draped in the routine manner. Lidocaine 1% was used for local anesthetic.Under ultrasound guidance, documentation of vessel patency , needle access with permanent recording, and reporting are performed followed by placement of a sheath in the left internal jugular vein. Using real-time ultrasound guidance, a 21-gauge micropuncture needle was advanced successfully into the left internal jugular vein. A 0.018 inch guidewire was advanced centrally through the needle under fluoroscopy. The needle was removed and a micropuncture sheath system was then placed. The inner dilator and guidewire were then removed, and a 0.035 inch J-wire was advanced through the micropuncture sheath and successfully into the inferior vena cava. Over this wire serial dilatation a maximal diameter of 12 Scottish was performed. Then, a 13 Scottish 15 cm long dual glide non tunneled dialysis catheter was advanced over the wire to the level of the superior cavoatrial junction. The wire was removed. All ports were tested in the demonstrated adequate flow. Catheter ports were packed with heparin according to protocol. The catheter was secured with a 2-0 Silk suture and a sterile dressing was applied. There were no complications and the patient tolerated the procedure well. RADIATION DOSE: Ka,r=15 mGy COMPLICATIONS: None. SPECIMENS REMOVED: None. ESTIMATED BLOOD LOSS: Less than 2 mL. BLOOD PRODUCTS ADMINISTERED: None. CONTRAST/IMPLANTS: As described in the above report. IMPRESSION: Successful fluoroscopic-guided placement of a 13 Scottish non tunneled dialysis catheter via the leftinternal jugular vein. The catheter tip lies at the right atrium/superior vena cava junction and is ready for use. [id number] [facility] [place][id number] Procedure Note Hm Interface, Radiology Results Incoming - 02/21/2017 3:01 PM [employer]TERNMAKER [employer]ICE [employer] PERFORMING RADIOLOGISTS: Erlin Gonzalez MD ASSISTANTS: None. ANESTHESIA: No sedation was administered. Lidocaine 1% and lidocaine 1% with epinephrine were used for local anesthetic. PRE PROCEDURE DIAGNOSIS: Need for dialysis. POST PROCEDURE DIAGNOSIS: Status post placement of non tunneled dialysis catheter. PROCEDURE: 1. Ultrasound-guided access of left internal jugular vein. 2. Placement of left internal jugular approach dual glide 13 Scottish non- tunneled hemodialysis catheter. PROCEDURE IN DETAIL: Written informed consent was obtained prior to the procedure. All elements of maximal sterile barrier technique were followed. The patient's left neck and upper chest were sterilely prepared and draped in the routine manner. Lidocaine 1% was used for local anesthetic. Under ultrasound guidance, documentation of vessel patency, needle access with permanent recording, and reporting are performed followed by placement of a sheath in the left internal jugular vein. Using real-time ultrasound guidance, a 21-gauge micropuncture needle was advanced successfully into the left internal jugular vein. A 0.018 inch guidewire was advanced centrally through the needle under fluoroscopy. The needle was removed and a micropuncture sheath system was then placed. The inner dilator and guidewire were then removed, and a 0.035 inch J-wire was advanced through the micropuncture sheath and successfully into the inferior vena cava. Over this wire serial dilatation a maximal diameter of 12 Scottish was performed. Then, a 13 Scottish 15 cm long dual glide non tunneled dialysis catheter was advanced over the wire to the level of the superior cavoatrial junction. The wire was removed. All ports were tested in the demonstrated adequate flow. Catheter ports were packed with heparin according to protocol. The catheter was secured with a 2-0 Silk suture and a sterile dressing was applied. There were no complications and the patient tolerated the procedure well. RADIATION DOSE: Ka,r=15 mGy COMPLICATIONS: None. SPECIMENS REMOVED: None. ESTIMATED BLOOD LOSS: Less than 2 mL. BLOOD PRODUCTS ADMINISTERED: None. CONTRAST/IMPLANTS: As described in the above report. IMPRESSION: Successful fluoroscopic-guided placement of a 13 Scottish non tunneled dialysis catheter via the leftinternal jugular vein. The catheter tip lies at the right atrium/superior vena cava junction and is ready for use. [facility] [id number] [facility] [id number] * IR Central Catheter Placement Us (02/21/2017 2:36 PM) Specimen Performing Laboratory [facility] [address] [place] [address] Narrative PERFORMING RADIOLOGISTS: Erlin Gonzalez MD ASSISTANTS: None. ANESTHESIA: No sedation was administered. Lidocaine 1% and lidocaine 1% with epinephrine were used for local anesthetic. PRE PROCEDURE DIAGNOSIS: Need for dialysis. POST PROCEDURE DIAGNOSIS: Status post placement of non tunneled dialysis catheter. PROCEDURE: 1.Ultrasound-guided access of left internal jugular vein. 2.Placement of left internal jugular approach dual glide13 Scottish non- tunneled hemodialysis catheter. PROCEDURE IN DETAIL: Written informed consent was obtained prior to the procedure. All elements of maximal sterile barrier technique were followed. The patient's left neck and upper chest were sterilely prepared and draped in the routine manner. Lidocaine 1% was used for local anesthetic.Under ultrasound guidance, documentation of vessel patency , needle access with permanent recording, and reporting are performed followed by placement of a sheath in the left internal jugular vein. Using real-time ultrasound guidance, a 21-gauge micropuncture needle was advanced successfully into the left internal jugular vein. A 0.018 inch guidewire was advanced centrally through the needle under fluoroscopy. The needle was removed and a micropuncture sheath system was then placed. The inner dilator and guidewire were then removed, and a 0.035 inch J-wire was advanced through the micropuncture sheath and successfully into the inferior vena cava. Over this wire serial dilatation a maximal diameter of 12 Scottish was performed. Then, a 13 Scottish 15 cm long dual glide non tunneled dialysis catheter was advanced over the wire to the level of the superior cavoatrial junction. The wire was removed. All ports were tested in the demonstrated adequate flow. Catheter ports were packed with heparin according to protocol. The catheter was secured with a 2-0 Silk suture and a sterile dressing was applied. There were no complications and the patient tolerated the procedure well. RADIATION DOSE: Ka,r=15 mGy COMPLICATIONS: None. SPECIMENS REMOVED: None. ESTIMATED BLOOD LOSS: Less than 2 mL. BLOOD PRODUCTS ADMINISTERED: None. CONTRAST/IMPLANTS: As described in the above report. IMPRESSION: Successful fluoroscopic-guided placement of a 13 Scottish non tunneled dialysis catheter via the leftinternal jugular vein. The catheter tip lies at the right atrium/superior vena cava junction and is ready for use. [facility] [id number] [facility] [place][id number] Procedure Note Hm Interface, Radiology Results Incoming - 02/21/2017 3:01 PM [employer] PERFORMING RADIOLOGISTS: Erlin Gonzalez MD ASSISTANTS: None. ANESTHESIA: No sedation was administered. Lidocaine 1% and lidocaine 1% with epinephrine were used for local anesthetic. PRE PROCEDURE DIAGNOSIS: Need for dialysis. POST PROCEDURE DIAGNOSIS: Status post placement of non tunneled dialysis catheter. PROCEDURE: 1. Ultrasound-guided access of left internal jugular vein. 2. Placement of left internal jugular approach dual glide 13 Scottish non- tunneled hemodialysis catheter. PROCEDURE IN DETAIL: Written informed consent was obtained prior to the procedure. All elements of maximal sterile barrier technique were followed. The patient's left neck and upper chest were sterilely prepared and draped in the routine manner. Lidocaine 1% was used for local anesthetic. Under ultrasound guidance, documentation of vessel patency, needle access with permanent recording, and reporting are performed followed by placement of a sheath in the left internal jugular vein. Using real-time ultrasound guidance, a 21-gauge micropuncture needle was advanced successfully into the left internal jugular vein. A 0.018 inch guidewire was advanced centrally through the needle under fluoroscopy. The needle was removed and a micropuncture sheath system was then placed. The inner dilator and guidewire were then removed, and a 0.035 inch J-wire was advanced through the micropuncture sheath and successfully into the inferior vena cava. Over this wire serial dilatation a maximal diameter of 12 Scottish was performed. Then, a 13 Scottish 15 cm long dual glide non tunneled dialysis catheter was advanced over the wire to the level of the superior cavoatrial junction. The wire was removed. All ports were tested in the demonstrated adequate flow. Catheter ports were packed with heparin according to protocol. The catheter was secured with a 2-0 Silk suture and a sterile dressing was applied. There were no complications and the patient tolerated the procedure well. RADIATION DOSE: Ka,r=15 mGy COMPLICATIONS: None. SPECIMENS REMOVED: None. ESTIMATED BLOOD LOSS: Less than 2 mL. BLOOD PRODUCTS ADMINISTERED: None. CONTRAST/IMPLANTS: As described in the above report. IMPRESSION: Successful fluoroscopic-guided placement of a 13 Scottish non tunneled dialysis catheter via the leftinternal jugular vein. The catheter tip lies at the right atrium/superior vena cava junction and is ready for use. [facility] [place][id number] [facility] [place][id number] * Troponin (02/20/2017 6:22 PM) Only the most recent of 3 results within the time period is included. Component Value Ref Range Troponin <0.01 0.00 - 0.60 ng/mL Comment: 0.11 - 1.49 ng/ml May indicate increased risk of acute coronary syndrome. >=1.5 ng/ml Consistent with acute myocardial infarction. The diagnostic value of a single normal or non-diagnostic result is questionable. Serial samples at 2-6 hour intervals are required to rule out acute myocardial injury. Specimen Performing Laboratory Plasma specimen [facility] [place] [facility] [address] [place] [address] [place] [address] * B natriuretic peptide (02/20/2017 6:22 PM) Only the most recent of 2 results within the time period is included. Component Value Ref Range BNP 156 (H) 0 - 100 pg/mL Specimen Performing Laboratory Blood [facility] [place] [facility] [address] [place] [address] [place] [address] * Transfuse RBC (02/08/2017 5:31 PM) Only the most recent of 5 results within the time period is included. * Total iron binding capacity (02/05/2017 6:30 AM) Component Value Ref Range Iron level 97 76 - 198 ug/dL Iron binding capacity 160 (L) 271 - 474 ug/dL % Saturation 60.6 (H) 20.0 - 40.0 % Specimen Performing Laboratory Plasma specimen [facility] [place] [facility] [address] [place] [address] * Ferritin level (02/05/2017 6:30 AM) Component Value Ref Range Ferritin level 1,561 (H) 18 - 158 ng/mL Specimen Performing Laboratory Serum [facility] [place] [facility] [address] [place] [address] * Urinalysis screen and microscopy, with reflex to culture (01/29/2017 10:27 AM) Component Value Ref Range Specimen site Clean catch Color, UA Straw Appearance, UA Clear Specific gravity, UA 1.009 1.001 - 1.035 pH, UA 9.0 (H) 5.0 - 8.5 Protein, UA 3+ (A) Negative Glucose, UA 3+ (A) Negative Ketones, UA Negative Negative Bilirubin, UA Negative Negative Blood, UA Negative Negative Nitrite, UA Negative Negative Urobilinogen, UA Negative <2.0 Leukocyte esterase, UA Negative Negative Epithelial cells, UA Many /HPF WBC, UA <1 0 - 1 /HPF RBC, UA <1 0 - 1 /HPF Bacteria, UA None seen None seen Yeast, UA None seen Yeast with pseudohyphae, None seen UA Specimen Performing Laboratory Urine [facility] [place] [facility] [address] [place] [address] * Urine culture (01/29/2017 10:27 AM) Component Value Ref Range Urine culture SEE COMMENTComment: Bacteriuria screen negative. Specimen Performing Laboratory Urine [facility] [place] [facility] [address] [place] [address] * Hepatitis B surface Ab, quantitative (01/28/2017 11:59 AM) Component Value Ref Range Hepatitis B surface Ab 5.06 IU/L Comment: The anti-HBs is less than 10 IU/L and is therefore negative. There is no evidence of recovery from hepatitis B infection or evidence of antibody response to HBV vaccination. An anti-HBs result greater than or equal to 10 IU/L implies immunity. For post-vaccination antibody testing guidelines for the general public refer to MMWR March 18, 2005/Vol. 54(No. 16);-23, and for healthcare workers refer to MMWR March 15, 2013/Vol. 62(No. 10);1-19. Reference Interval: anti-HBs 9.99 IU/L or less ....... Negative 10.00 IU/L or greater .... Positive Results greater than 1,000.00 IU/L are reported as greater than 1,000.00 IU/L. This assay should not be used for blood donor screening, associated re-entry protocols, or for screening Human Cell, Tissues and Cellular and Tissue-Based Products (HCT/P). Performed by [facility], [address] [place] [phone] [email or web address], Raheem Cox MD - Lab. Director Specimen Performing Laboratory Serum [facility] [address] [place] [id number] * CRITICAL CARE (01/28/2017 2:20 AM) Narrative Jamila Pedraza MD 01/28/20172:20 AM Critical Care Performed by: JAMILA PEDRAZA Authorized by: JAMILA PEDRAZA Critical care provider statement: Critical care time (minutes):35 Critical care time was exclusive of:Separately billable procedures and treating other patients Critical care was necessary to treat or prevent imminent or life-threatening deterioration of the following conditions:Renal failure Critical care was time spent personally by me on the following activities:Discussions with consultants, ordering and review of laboratory studies, ordering and review of radiographic studies, pulse oximetry, examination of patient and evaluation of patient's response to treatment * PV duplex venous lower extremity (01/27/2017 10:38 PM) Specimen Performing Laboratory [facility] [address] [place] [address] Narrative EXAMINATION:US DUPLEX VENOUS LOWER EXTREMITY RIGHT CLINICAL HISTORY:Edema COMPARISON:None. TECHNIQUE:Grayscale, color Doppler, and spectral waveform analysis of the right lower extremity deep venous system was performed. The common femoral, superficial femoral, proximal deep femoral, greater saphenous, and popliteal veins were evaluated. The calf veins were also evaluated. FINDINGS: The right common femoral, superficial femoral, and popliteal veins are compressible. They demonstrate normal venous waveforms and response to augmentation. There is flow in the visualized calf veins. There is no evidence of a popliteal or Duncan's cyst. The left common femoral vein is patent. IMPRESSION: Normal right lower extremity venous Doppler examination. There is no evidence of deep venous thrombosis. [facility]-[id number] Procedure Note Interface, Radiology Results Incoming - 01/27/2017 10:46 PM CDT EXAMINATION: US DUPLEX VENOUS LOWER EXTREMITY RIGHT CLINICAL HISTORY: Edema COMPARISON: None. TECHNIQUE: Grayscale, color Doppler, and spectral waveform analysis of the right lower extremity deep venous system was performed. The common femoral, superficial femoral, proximal deep femoral, greater saphenous, and popliteal veins were evaluated. The calf veins were also evaluated. FINDINGS: The right common femoral, superficial femoral, and popliteal veins are compressible. They demonstrate normal venous waveforms and response to augmentation. There is flow in the visualized calf veins. There is no evidence of a popliteal or Duncan's cyst. The left common femoral vein is patent. IMPRESSION: Normal right lower extremity venous Doppler examination. There is no evidence of deep venous thrombosis. [facility]-[id number] * XR Foot 3+ Vw Right (01/27/2017 7:49 PM) Specimen Performing Laboratory [facility] [address] [place] [address] Narrative XR FOOT 3VW RIGHT CLINICAL INDICATION:OSTEOMYELITIS SUSPECTEDFOOT SWELLINGNO ARTHROPATHYNO ULCERDIABETIC PT COMPARISON:04/29/2016. IMPRESSION: There is severe Charcot arthropathy of the hindfoot and midfoot with extensive osteolysis of the hindfoot. In the interval, there is increased resorption of the distal tibia, which now has periostitis at its distal margin. These findings are suggestive of superimposed osteomyelitis. There is severe soft tissue swelling of the right foot. No acute fracture is identified. The bones are demineralized. [facility]-[id number] Procedure Note Interface, Radiology Results Incoming - 01/27/2017 8:01 PM CDT XR FOOT 3 VW RIGHT CLINICAL INDICATION: OSTEOMYELITIS SUSPECTED FOOT SWELLING NO ARTHROPATHY NO ULCER DIABETIC PT COMPARISON: 04/29/2016. IMPRESSION: There is severe Charcot arthropathy of the hindfoot and midfoot with extensive osteolysis of the hindfoot. In the interval, there is increased resorption of the distal tibia, which now has periostitis at its distal margin. These findings are suggestive of superimposed osteomyelitis. There is severe soft tissue swelling of the right foot. No acute fracture is identified. The bones are demineralized. [facility]-[id number] * IR Evaluation of Dialysis Fistula/Graft w Angioplasty (11/03/2016 5:26 PM) Only the most recent of 2 results within the time period is included. Specimen Performing Laboratory [facility] [address] [place] [address] Addenda Addendum by Erlin Gonzalez MD on 12/13/2016 8:58 AM ADDENDUM #1 PERFORMING RADIOLOGIST: Erlin Gonzalez MD ASSISTANTS: None. ANESTHESIA TYPE: Lidocaine 1% was used for local anesthetic. ANTIBIOTICS: None given. PRE PROCEDURE DIAGNOSIS: End-stage renal disease. Malfunctioning right arm AV fistula. A request was made for fistulogram and possible intervention. POST PROCEDURE DIAGNOSIS: End stage renal disease. Status post angioplasty of right arm AV fistula. PROCEDURE: 1. Limited right arm Doppler ultrasound. 2. Ultrasound guidance access of right arm brachiocephalic fistula. 3. Venogram of right arm and central venous system. 4. Ultrasound guidance access of AV fistula. 5. Angioplasty/venoplasty of juxtaanastomotic proximal venous limb. 6. Post angioplasty venogram. 7. Hemostasis using purse-string technique. TECHNIQUE: Written informed consent was obtained prior to the procedure. The patient was placed in a supine position on the fluoroscopic table. Limited preprocedure ultrasound of the right upper extremity brachiocephalic fistula was obtained. The right brachiocephalic vein fistula was imaged sonographically and was found to be patent and appropriate for percutaneous access. Arteriovenous anastomosis and venous outflow were identified. A suitable approach for puncture was identified. The right upper extremities prepped and draped in the usual sterile fashion. Using real-time ultrasound guidance, the right upper extremity brachiocephalic fistula was accessed with a 21-gauge micropuncture needle near the level of the arteriovenous anastomosis towards the venous outflow. Through 0.018 inch microwire was advanced via the needle. A dermatotomy was made over the needle. Needle was exchanged for a 5 Scottish micropuncture sheath. Inner portion of the micropuncture sheath . Fistulogram and central venogram were performed which failed to demonstrates flow-limiting stenosis within the mid and distal venous limb as well as the central venous system. Then, attention was turned to the arterial inflow. Using manual pressure on the fistula, contrast was instilled via the sheath and a reflux arteriogram of the right brachial artery and the brachiocephalic arteriovenous anastomosis was performed. It demonstrated moderate long segment irregular narrowing of the juxtaanastomotic proximal venous limb. Consequently, it was decided to pursue angioplasty of this narrowing. This access was removed using 2-0 silk and purse-string technique. Using real-time ultrasound guidance, the right upper extremity brachiocephalic fistula was accessed at its venous outflow towards the arteriovenous anastomosis with a 21-gauge micropuncture needle. A 0.018 inch microwire was advanced. The needle. A dermatotomy was made over the needle. The needle was exchanged for a 5 Scottish micropuncture sheath. The inner portion of the sheath and microwire were exchanged for 0.035 inch Bentson wire. The micropuncture sheath was exchanged for a 6 Scottish vascular sheath. A roadmap function to highlight anatomy, a 5 Scottish Evans catheter and a 0.035 inch glide wire were advanced across the arteriovenous anastomosis into the distal right brachial artery. The Glidewire was exchanged for a Bentson wire. The Evans catheter was exchanged for first a 6 mm x 2 cm [place] balloon. Angioplasty was performed along the length of the stenosis. A waist was noted throughout, which was successfully reduced. After angioplasty, repeat reflux angiography of the brachiocephalic arteriovenous anastomosis and brachial artery was performed which demonstrated successful resolution of the anastomotic narrowing. There was a minimal linear filling defect within the segment post venoplasty likely represents small clot and/or dissection without flow-limiting stenosis. The access was removed and hemostasis achieved using 2-0 silk purse-string technique. COMPLICATIONS: None. RADIATION DOSE: 13 mGy. SPECIMENS REMOVED: None. ESTIMATED BLOOD LOSS: Less than 10 mL. BLOOD PRODUCTS ADMINISTERED: None. CONTRAST/IMPLANTS: As described in the above report. IMPRESSION: 1. 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 2. Status post successful angioplasty to a maximal diameter of 6 mm. 3. Temple of excellent pulse and thrill throughout the right upper extremity brachiocephalic arteriovenous fistula without evidence of immediate complication. The patient is planning on returning to his regular dialysis schedule. Narrative PERFORMING RADIOLOGIST: Erlin Gonzalez MD ASSISTANTS: None. ANESTHESIA TYPE: Lidocaine 1% was used for local anesthetic. ANTIBIOTICS: None given. PRE PROCEDURE DIAGNOSIS: End-stage renal disease. Malfunctioning right arm AV fistula. A request was made for fistulogram and possible intervention. POST PROCEDURE DIAGNOSIS: End stage renal disease. Status post angioplasty of right arm AV fistula. PROCEDURE: 1. Limited right arm Doppler ultrasound. 2. Ultrasound guidance access of right arm brachiocephalic fistula. 3. Venogram of right arm and central venous system. 4. Ultrasound guidance access of AV fistula. 5. Angioplasty/venoplasty of juxtaanastomotic proximal venous limb. 6. Post angioplasty venogram. 7. Hemostasis using purse-string technique. TECHNIQUE: Written informed consent was obtained prior to the procedure. The patient was placed in a supine position on the fluoroscopic table. Limited preprocedure ultrasound of the right upper extremity brachiocephalic fistula was obtained. Arteriovenous anastomosis and venous outflow were identified. A suitable approach for puncture was identified. The right upper extremities prepped and draped in the usual sterile fashion. Using real-time ultrasound guidance, the right upper extremity brachiocephalic fistula was accessed with a 21-gauge micropuncture needle near the level of the arteriovenous anastomosis towards the venous outflow. Through 0.018 inch microwire was advanced via the needle. A dermatotomy was made over the needle. Needle was exchanged for a 5 Scottish micropuncture sheath. Inner portion of the micropuncture sheath . Fistulogram and central venogram were performed which failed to demonstrates flow-limiting stenosis within the mid and distal venous limb as well as the central venous system. Then, attention was turned to the arterial inflow. Using manual pressure on the fistula, contrast was instilled via the sheath and a reflux arteriogram of the right brachial artery and the brachiocephalic arteriovenous anastomosis was performed. It demonstrated moderate long segment irregular narrowing of the juxtaanastomotic proximal venous limb. Consequently, it was decided to pursue angioplasty of this narrowing. This access was removed using 2-0 silk and purse-string technique. Using real-time ultrasound guidance, the right upper extremity brachiocephalic fistula was accessed at its venous outflow towards the arteriovenous anastomosis with a 21-gauge micropuncture needle. A 0.018 inch microwire was advanced. The needle. A dermatotomy was made over the needle. The needle was exchanged for a 5 Scottish micropuncture sheath. The inner portion of the sheath and microwire were exchanged for 0.035 inch Bentson wire. The micropuncture sheath was exchanged for a 6 Scottish vascular sheath. A roadmap function to highlight anatomy, a 5 Scottish Evans catheter and a 0.035 inch glide wire were advanced across the arteriovenous anastomosis into the distal right brachial artery. The Glidewire was exchanged for a Bentson wire. The Evans catheter was exchanged for first a 6 mm x 2 cm [place] balloon. Angioplasty was performed along the length of the stenosis. A waist was noted throughout, which was successfully reduced. After angioplasty, repeat reflux angiography of the brachiocephalic arteriovenous anastomosis and brachial artery was performed which demonstrated successful resolution of the anastomotic narrowing. There was a minimal linear filling defect within the segment post venoplasty likely represents small clot and/or dissection without flow-limiting stenosis. The access was removed and hemostasis achieved using 2-0 silk purse-string technique. COMPLICATIONS: None. RADIATION DOSE: 13 mGy. SPECIMENS REMOVED: None. ESTIMATED BLOOD LOSS: Less than 10 mL. BLOOD PRODUCTS ADMINISTERED: None. CONTRAST/IMPLANTS: As described in the above report. IMPRESSION: 1. 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 2. Status post successful angioplasty to a maximal diameter of 6 mm. 3. Temple of excellent pulse and thrill throughout the right upper extremity brachiocephalic arteriovenous fistula without evidence of immediate complication. The patient is planning on returning to his regular dialysis schedule. Procedure Note Hm Interface, Radiology Results Incoming - 11/04/2016 11:07 AM CDT PERFORMING RADIOLOGIST: Erlin Gonzalez MD ASSISTANTS: None. ANESTHESIA TYPE: Lidocaine 1% was used for local anesthetic. ANTIBIOTICS: None given. PRE PROCEDURE DIAGNOSIS: End-stage renal disease. Malfunctioning right arm AV fistula. A request was made for fistulogram and possible intervention. POST PROCEDURE DIAGNOSIS: End stage renal disease. Status post angioplasty of right arm AV fistula. PROCEDURE: 1. Limited right arm Doppler ultrasound. 2. Ultrasound guidance access of right arm brachiocephalic fistula. 3. Venogram of right arm and central venous system. 4. Ultrasound guidance access of AV fistula. 5. Angioplasty/venoplasty of juxtaanastomotic proximal venous limb. 6. Post angioplasty venogram. 7. Hemostasis using purse-string technique. TECHNIQUE: Written informed consent was obtained prior to the procedure. The patient was placed in a supine position on the fluoroscopic table. Limited preprocedure ultrasound of the right upper extremity brachiocephalic fistula was obtained. Arteriovenous anastomosis and venous outflow were identified. A suitable approach for puncture was identified. The right upper extremities prepped and draped in the usual sterile fashion. Using real-time ultrasound guidance, the right upper extremity brachiocephalic fistula was accessed with a 21-gauge micropuncture needle near the level of the arteriovenous anastomosis towards the venous outflow. Through 0.018 inch microwire was advanced via the needle. A dermatotomy was made over the needle. Needle was exchanged for a 5 [place] micropuncture sheath. Inner portion of the micropuncture sheath . Fistulogram and central venogram were performed which failed to demonstrates flow-limiting stenosis within the mid and distal venous limb as well as the central venous system. Then, attention was turned to the arterial inflow. Using manual pressure on the fistula, contrast was instilled via the sheath and a reflux arteriogram of the right brachial artery and the brachiocephalic arteriovenous anastomosis was performed. It demonstrated moderate long segment irregular narrowing of the juxtaanastomotic proximal venous limb. Consequently, it was decided to pursue angioplasty of this narrowing. This access was removed using 2-0 silk and purse-string technique. Using real-time ultrasound guidance, the right upper extremity brachiocephalic fistula was accessed at its venous outflow towards the arteriovenous anastomosis with a 21-gauge micropuncture needle. A 0.018 inch microwire was advanced. The needle. A dermatotomy was made over the needle. The needle was exchanged for a 5 Scottish micropuncture sheath. The inner portion of the sheath and microwire were exchanged for 0.035 inch Bentson wire. The micropuncture sheath was exchanged for a 6 Scottish vascular sheath. A roadmap function to highlight anatomy, a 5 Scottish Evans catheter and a 0.035 inch glide wire were advanced across the arteriovenous anastomosis into the distal right brachial artery. The Glidewire was exchanged for a Bentson wire. The Evans catheter was exchanged for first a 6 mm x 2 cm [place] balloon. Angioplasty was performed along the length of the stenosis. A waist was noted throughout, which was successfully reduced. After angioplasty, repeat reflux angiography of the brachiocephalic arteriovenous anastomosis and brachial artery was performed which demonstrated successful resolution of the anastomotic narrowing. There was a minimal linear filling defect within the segment post venoplasty likely represents small clot and/or dissection without flow-limiting stenosis. The access was removed and hemostasis achieved using 2-0 silk purse-string technique. COMPLICATIONS: None. RADIATION DOSE: 13 mGy. SPECIMENS REMOVED: None. ESTIMATED BLOOD LOSS: Less than 10 mL. BLOOD PRODUCTS ADMINISTERED: None. CONTRAST/IMPLANTS: As described in the above report. IMPRESSION: 1. 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 2. Status post successful angioplasty to a maximal diameter of 6 mm. 3. Temple of excellent pulse and thrill throughout the right upper extremity brachiocephalic arteriovenous fistula without evidence of immediate complication. The patient is planning on returning to his regular dialysis schedule. * CRITICAL CARE (11/03/2016 1:58 PM) Narrative José Antonio Tijerina MD 11/03/20161:58 PM Critical Care Performed by: JOSÉ ANTONIO TIJERINA Authorized by: MUNDO LITTLE Critical care provider statement: Critical care time (minutes):31 Critical care was necessary to treat or prevent imminent or life-threatening deterioration of the following conditions:Metabolic crisis Comments: Worsening hyperkalemia, unable to have IR eval fistula and obtain dialysis. Rx w/ calcium, bicarb, insulin/glucose. Bicarb ggt started * Bedside glucose (11/03/2016 12:00 PM) Only the most recent of 2 results within the time period is included. Component Value Ref Range POC glucose 150 Specimen Performing Laboratory Blood * Hemoglobin A1c (11/02/2016 6:26 PM) Component Value Ref Range Hemoglobin A1C 7.9 (H) 4.0 - 6.0 % Comment: Less than 6% - Goal of therapy for Type II Diabetes Less than 7%- Goal of therapy for Type I Diabetes Less than 8%- Acceptable control for Type I or Type II Diabetes Greater than 8%- Unacceptable control; action indicated. (A [id number]) Specimen Performing Laboratory Blood [facility] [place] [facility] [address] [place] [address] * Lipid panel (11/02/2016 6:26 PM) Component Value Ref Range Cholesterol 140 120 - 200 mg/dL Triglycerides 181 (H) 50 - 150 mg/dL HDL cholesterol 28 (L) 40 - 60 mg/dL LDL cholesterol 74Comment: Result obtained by direct LDL mg/dL measurement Lipid panel See below interpretation Comment: Total Cholesterol (mg/dL) LDL Cholesterol (mg/dL) <200 Desirable <100 Optimal 200-239 Borderline-high 100-129 Near or above optimal >=240 High 130-159 Borderline-high 160-189 High >=190 Very high HDL Cholesterol (mg/dL) Triglycerides (mg/dL) <40 Low <150 Normal >=60 High 150-199 Borderline-high 200-499 High >=500 Very high Risk Catergories that modify LDL goals. Risk Catergories LDL goal (mg/dL) CHD and CHD risk equivalent <100 (10-year risk >20%) Multiple (2+) risk factors <130 (10-year risk=<20%) 0-1 risk factors <160 (<10-year risk) Defining levels of lipids in metabolic syndrome Triglycerides >=150 mg/dL HDL Cholesterol Men <40 mg/dL Women <50 mg/dL Non-HDL cholesterol is a second target for therapy in persons with high triglycerides (>=200 mg/dL) Specimen Performing Laboratory Plasma specimen [facility] [place] [facility] [place] [facility] [place] [address] [place] [address] * ECG Pre/Post Op (08/02/2016 10:11 AM) Component Value Ref Range Ventricular rate 85 Atrial rate 85 VT interval 212 QRSD interval 84 QT interval 380 QTC interval 452 P axis 1 42 QRS axis 1 -30 T wave axis -1 EKG impression Sinus rhythm with 1st degree AV block-Left axis deviation-Minimal voltage criteria for LVH, may be normal variant-Possible Lateral infarct , age undetermined-Inferior infarct , age undetermined-Abnormal ECG-No previous ECGs available- Specimen Performing Laboratory [facility] [address] [place] [address] after 06/28/2016 Insurance Payer Benefit Subscriber ID Type Phone Address Plan / Group [facility] MEDICAID [facility] xxxxxxxxx HMO [employer]+ [place] Home: [id number] [place] [id number]
[2017-06-29] MEDS ORDERED: LABETALOL HCL 5 MG/ML 20ML VIAL IV STA (11:54)
[2017-06-29] MEDS ORDERED: LABETALOL HCL 5 MG/ML 20ML VIAL IV SCH (12:15)
[2017-06-29] MEDS ORDERED: CLONIDINE HCL 0.2 MG TAB PO ONE (12:45)
[2017-06-29 12:47] LABS: BASOPHILS % 0.6 % (0.0-1.0); EOSINOPHILS # (AUTO) 0.2 (0.0-0.4); EOSINOPHILS % 2.7 % (0.0-6.0); HEMATOCRIT 28.5 % (38.2-49.6); HEMOGLOBIN 9.3 g/dL (14.0-18.0); LYMPHOCYTES # (AUTO) 0.9 (1.0-3.2); LYMPHOCYTES % 13.4 % (18.0-39.1); MEAN CORPUSCULAR HEMOGLOBIN 29.5 pg (28-32); MEAN CORPUSCULAR HGB CONC 32.6 g/dL (31-35); MEAN CORPUSCULAR VOLUME 90.5 fL (81-99); MONOCYTES # (AUTO) 0.6 (0.2-0.8); MONOCYTES % 9.6 % (4.4-11.3); NEUTROPHILS # (AUTO) 4.9 (2.1-6.9); NEUTROPHILS % 73.5 % (38.7-80.0); PLATELET COUNT 207 x10e3/uL (140-360); RED BLOOD COUNT 3.15 x10e6/uL (4.3-5.7)
[2017-06-29 13:04] LABS: ALBUMIN 3.1 g/dL (3.5-5.0); ALBUMIN/GLOBULIN RATIO 0.7 (0.8-2.0); ANION GAP 19.2 mmol/L (8-16); CALCIUM 8.9 mg/dL (8.4-10.2); CREATININE, SERUM 8.88 mg/dL (0.72-1.25); MAGNESIUM 1.8 MG/DL (1.3-2.1); PHOSPHORUS 6.6 MG/DL (2.3-4.7)
[2017-06-29 13:06] LABS: POTASSIUM 6.2 mmol/L (3.5-5.1)
[2017-06-29] MEDS ORDERED: SODIUM BICARBONATE 8.4% INJ 50 ML SYR IV STA (13:53)
[2017-06-29] MEDS ORDERED: DEXTROSE 50% SYRINGE 50 ML IV STA (13:53)
[2017-06-29] MEDS ORDERED: INSULIN REGULAR, HUMAN 100 UNIT/1 ML 3ML VIAL IV ONE (14:00)
[2017-06-29] MEDS ORDERED: SODIUM CHLORIDE 0.9% 1000ML 1,000 ML IV ONE (14:00)
[2017-06-29] MEDS ORDERED: SOD POLYSTYRENE SULFONATE SUSP 15 GM/60 ML BTL PR ONE (14:00)
[2017-06-29] MEDS ORDERED: CALCIUM GLUCONATE 10% INJ 9.3 MEQ in SODIUM CHLORIDE 0.9% 100 ML 100 ML IV ONE (14:00)
[2017-06-29] MEDS ORDERED: SODIUM CHLORIDE FLUSH 10 ML SYR INJ PRN (14:15)
--- OUTSIDE RECORDS SUMMARY | 2017-06-29 14:27 | XMS REPORT | Clinical Summary ---
Author Author Lopez [facility] Organization [facility] Address Unknown Phone Unavailable Care Team Providers Care Weight Reducing Technician Name Role Phone Jesus Corbin MD PCP [...] capsule (three) times a week. 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 Osteomyelitis [...] Only Cardiovascular Adelaida Izquierdo MA Atherosclerosis of cachil dehe artery of left lower extremity with intermittent claudication (Primary Dx); Peripheral vascular disorder 05/03/2017 Procedure Pass General Surgery 04/26/2017 Procedure Pass General Surgery 04/25/2017 [facility] General Surgery Rema Alexander MD Diabetic [...] Secondary hypertension; Osteomyelitis of lower leg 11/02/2016 [facility] General Internal Medicine Mundo Little MD [...] Taken Blood Pressure 143/63 05/17/2017 10:37 PM BAGGAGE HANDLING SUPERVISOR Pulse 93 05/17/2017 10:37 PM BAGGAGE HANDLING SUPERVISOR Temperature 36.1 C (97 F) 05/17/2017 10:37 PM BAGGAGE HANDLING SUPERVISOR Respiratory Rate 20 05/17/2017 10:37 PM BAGGAGE HANDLING SUPERVISOR Oxygen Saturation 96% 05/17/2017 10:37 PM BAGGAGE HANDLING SUPERVISOR Inhaled Oxygen - - Concentration Weight 118 kg (261 lb 2 oz) 05/16/2017 4:31 AM BAGGAGE HANDLING SUPERVISOR Height 177.8 cm (5' 10") 04/25/2017 2:11 PM BAGGAGE HANDLING SUPERVISOR Body Mass Index 37.47 05/16/2017 4:31 AM BAGGAGE HANDLING SUPERVISOR Plan of Treatment Health Maintenance Due Date Last Done Comments FOOT EXAM 1964 OPHTHALMOLOGY EXAM 1964 URINE MICROALBUMIN 1964 COLONOSCOPY 2004 ZOSTER VACCINE 2014 INFLUENZA VACCINE 10/25/2017 Implants Implanted Type Area Lap Runner Device Expiration Model / Identifier Date Serial / Lot Device Vasclr Clsr Baln Cath 10ml Cardiovasc N/A: N/A CARDINAL 2018 [id number] / Lkng Syr 6fr 7fr [facility] / [id number] Implants [id number] Implanted: 05/04/2017 (Quantity not on file) Catheter Name Plate Stamping Machine Operator [place] 5fr 75cm Surgical N/A: N/A BSC PERIPHERAL 2017 [id number] 6x20mm 0.035in H-Pres - [id number] Implants; INTERVENTION 0 / Implanted: 11/03/2016 (Quantity not Expanders; VASCULAR MEGHA / on file) Extenders; [id number] Surgical Wires Drain Wnd Chnl 19fr 1/4in Rnd Hbls Surgical N/A: N/A [employer] [id number] / Fl-Flut W/ 1/4in Trocar - [id number] Implants; DIVISION / Implanted: 02/01/2017 (Quantity not Expanders; [id number] on file) Extenders; Surgical Wires Tray Cath Dialys Curved 3lumen 20cm Surgical N/A: N/A BARD ACCESS [id number] / 13fr Power-Trialysis - [id number] Implants; SYSTEMS / Implanted: 02/21/2017 (Quantity not Expanders; [id number] on file) Extenders; Surgical Wires Catheter [facility] 5fr Surgical N/A: N/A [facility] [place] PERIPHERAL [id number] 0.038in 65cm Hf Contra-L - Implants; INTERVENTION / [id number] Expanders; VASCULAR MEGHA / Implanted: 05/04/2017 (Quantity not Extenders; on file) Surgical Wires Guidewire Angio Stiff Shaft Angld Surgical N/A: N/A COOK PERIPHERAL 10/21/2019 [id number] / [employer] .035inx - Stents INTERVENTION / [id number] Implanted: 05/04/2017 (Quantity not on file) Procedures Procedure Name Priority Date/Time Associated Diagnosis Comments HEMODIALYSIS Routine 05/16/2017 9:20 AM BAGGAGE HANDLING SUPERVISOR HEMODIALYSIS Routine 05/11/2017 11:32 AM BAGGAGE HANDLING SUPERVISOR OR AN ELECTIVE Routine 05/10/2017 SUPRAGLOTTIC AIRWAY 4:14 PM BAGGAGE HANDLING SUPERVISOR Procedure Note - Nickie Rene MD - 05/10/2017 4:14 PM BAGGAGE HANDLING SUPERVISOR Airway Date/Time: 05/10/2017 4:00 PM Performed by: [...] Routine 05/04/2017 Results for this 3:05 PM BAGGAGE HANDLING SUPERVISOR procedure are in the results section. HEMODIALYSIS Routine 05/04/2017 7:52 AM BAGGAGE HANDLING SUPERVISOR ECHOCARDIOGRAM 2D Routine 05/02/2017 Results for this COMPLETE W MMODE SPECTRAL 3:45 PM BAGGAGE HANDLING SUPERVISOR procedure are in the COLOR DOPPLER (70012) results section. HEMODIALYSIS Routine 05/02/2017 12:21 PM BAGGAGE HANDLING SUPERVISOR HEMODIALYSIS Routine 04/28/2017 11:09 AM BAGGAGE HANDLING SUPERVISOR HEMODIALYSIS Routine 04/26/2017 4:29 PM BAGGAGE HANDLING SUPERVISOR HEMODIALYSIS Routine 02/27/2017 8:51 AM BAGGAGE HANDLING SUPERVISOR HEMODIALYSIS Routine 02/25/2017 4:31 PM BAGGAGE HANDLING SUPERVISOR CV HYBRID OR FLUOROSCOPY Routine 02/23/2017 Results for this 1:00 PM BAGGAGE HANDLING SUPERVISOR procedure are in the results section. HEMODIALYSIS Routine 02/10/2017 12:29 PM BAGGAGE HANDLING SUPERVISOR HEMODIALYSIS Routine 02/08/2017 3:16 PM BAGGAGE HANDLING SUPERVISOR HEMODIALYSIS Routine 02/06/2017 7:43 AM BAGGAGE HANDLING SUPERVISOR HEMODIALYSIS Routine 01/30/2017 8:05 AM BAGGAGE HANDLING SUPERVISOR HEMODIALYSIS Routine 01/29/2017 11:38 AM BAGGAGE HANDLING SUPERVISOR OR CRITICAL CARE, E/M Routine 01/28/2017 Results for this 30-74 MINUTES 2:20 AM CDT procedure are in the results section. HEMODIALYSIS Routine 11/03/2016 5:39 PM CDT OR CRITICAL CARE, E/M Routine 11/03/2016 Results for [...] - 1.0 % Specimen Performing Laboratory Blood [facility] DEPARTMENT OF PATHOLOGY AND GENOMIC MEDICINE [address] [place] [address] * POC glucose (05/17/2017 8:55 PM) Only the most recent of 171 results within the time period is included. Component Value Ref Range POC glucose 179 (H) 65 - 100 mg/dL Comment: Meter ID: [id number] Oliver Filter Operator: Kael Borja Specimen Performing Laboratory [facility] DEPARTMENT OF PATHOLOGY AND GENOMIC MEDICINE [address] [place] [address] * Prepare RBC, 1 Units (05/17/2017 12:51 PM) Only the most recent of 8 results within the time period is included. Component Value Ref Range Product name Red Blood Cells -1, Leukored Unit number [id number] Product code [id number] Dispense status Transfused Blood expiration date [id number] Blood type code 6200 Blood type A POSITIVE Specimen Performing Laboratory [facility] OF PATHOLOGY AND [facility] [address] [place] [address] * Type and screen (05/17/2017 12:51 PM) Only the most recent of 9 results within the time period is included. Component Value Ref Range ABO grouping A Rh type POS Antibody screen (gel) NEG Specimen Performing Laboratory Blood [facility] OF PATHOLOGY AND [facility] [address] [place] [address] * Estimated GFR (05/17/2017 6:23 AM) Only [...] and Americans. Specimen Performing Laboratory Plasma specimen [facility] DEPARTMENT OF PATHOLOGY AND GENOMIC MEDICINE [address] [place] [address] * Basic metabolic panel (05/17/2017 6:23 AM) [...] 10.7 mg/dL Specimen Performing Laboratory Plasma specimen [facility] DEPARTMENT OF PATHOLOGY AND GENOMIC MEDICINE [address] [place] [address] * Surgical pathology request (05/10/2017 9:16 AM) Only the most recent of 3 results within the time period is included. Component Value Ref Range Surgical pathology report See link below for PDF Lab Report Result status This is Final Report to [id number] Specimen Performing Laboratory [facility] DEPARTMENT OF PATHOLOGY AND GENOMIC MEDICINE [facility] [place] [address] * Vancomycin level, random (05/08/2017 5:18 AM) Only the most recent of 4 results within the time period is included. Component Value Ref Range Vancomycin, random 16.4 ug/mL Comment: Therapeutic Ranges: Peak 30.0 - 40.0 ug/mL Trough 10.0 - 20.0 ug/mL Specimen Performing Laboratory Blood [facility] DEPARTMENT OF PATHOLOGY AND GENOMIC MEDICINE [facility] [place] [address] * Renal function panel (05/08/2017 5:18 AM) [...] 4.5 mg/dL Specimen Performing Laboratory Plasma specimen [facility] DEPARTMENT OF PATHOLOGY AND GENOMIC MEDICINE [address] [place] [address] * Hybrid or fluoroscopy (05/04/2017 3:05 PM) Narrative See operative report for the same day * Potassium level (05/04/2017 1:50 PM) Component Value Ref Range Potassium 3.8 3.5 - 5.0 mEq/L Specimen Performing Laboratory Plasma specimen [facility] DEPARTMENT OF PATHOLOGY AND GENOMIC MEDICINE [address] [place] [address] * PV physiologic arterial lower ext bilat complete w ann marie (05/03/2017 1:34 PM) Specimen Performing Laboratory [facility] [address] [place] [id number] Narrative EXAMINATION:PV PHYSIOLOGIC ARTERIAL LOWER EXTREMITY COMPLETE [...] amplitude without delayed upstroke. Digit: Diminished amplitude. [facility]-[id number] ANN MARIE Guidelines: >1.4: Calcified Vessel 0.9-1.4: Normal 0.7-0.89: Mild PAD 0.51-0.69: Moderate PAD <0.5: Severe PAD TBI Guidelines: <0.6: Normal 0.34-0.59: Mild PAD 0.12-0.34: Moderate PAD <0.11: Severe PAD Procedure Note [facility], Radiology Results Incoming - 05/03/2017 2:08 PM BAGGAGE HANDLING SUPERVISOR EXAMINATION: PV PHYSIOLOGIC ARTERIAL LOWER EXTREMITY COMPLETE [...] amplitude without delayed upstroke. Digit: Diminished amplitude. [facility]-[id number] ANN MARIE Guidelines: >1.4: Calcified Vessel 0.9-1.4: [...] validate this result. Specimen Performing Laboratory Blood [facility] DEPARTMENT OF PATHOLOGY AND GENOMIC MEDICINE [address] [place] [address] * Prothrombin time with INR (05/03/2017 4:47 [...] values over 4.0. Specimen Performing Laboratory Blood [facility] DEPARTMENT OF PATHOLOGY AND GENOMIC MEDICINE [address] [place] [address] * Echocardiogram complete w contrast and 3D [...] 51.70 % LV EF,A4C 48.98 % Benigno Ash[place],d A4C 8.75 cm Benigno Ash[place],s A4C 6.70 cm LV SV,A4C 66.16 % [...] 2.52 m/s2 Specimen Performing Laboratory [facility] [address] [place] [address] Narrative The left ventricle chamber size is normal. There is mild left ventricular Left Ventricular ejection fraction is 55 - 60%. Right ventricular size is normal. * ECG 12 lead (05/01/2017 3:21 PM) Only the most recent of 10 results within the time period is included. Component Value Ref Range Ventricular rate 87 Atrial rate 87 OR interval 232 QRSD interval 140 QT interval 400 QTC interval 481 QRS axis 1 -18 T wave axis 246 EKG impression Sinus rhythm with 1st degree AV block-Nonspecific intraventricular block-Lateral infarct , age undetermined-Inferior infarct (cited on or before 04-APR-2017)-Abnormal ECG-In automated comparison with ECG of 04-APR-2017 16:28,-QRS duration has increased-Lateral infarct is now nwhvetf-Zht-olwbcyhm change in ST segment in Inferior leads-Nonspecific T wave abnormality has replaced inverted T waves in Inferior leads- Specimen Performing Laboratory [facility] [address] [place] [address] * Us duplex arterial lower extremity (04/30/2017 9:09 PM) Only the most recent of 2 results within the time period is included. Specimen Performing Laboratory [facility] [address] [place] [address] Narrative US DUPLEX ARTERIAL LOWER EXTREMITY LEFT [...] participate in the care of your patient [facility]-[id number] Procedure Note Hm Interface, Radiology Results Incoming - 04/30/2017 9:22 PM BAGGAGE HANDLING SUPERVISOR US DUPLEX ARTERIAL LOWER EXTREMITY LEFT CLINICAL [...] participate in the care of your patient [facility]-[id number] * MRI Foot Wo Contrast Left (04/29/2017 11:25 AM) Specimen Performing Laboratory [facility] [address] [place] [address] Narrative EXAMINATION:MRI FOOT WO CONTRAST LEFT CLINICAL [...] or abscess. Mild diffuse edema is present. [facility]-[id number] posterior Procedure Note [facility], Radiology Results Incoming - 04/29/2017 12:26 PM BAGGAGE HANDLING SUPERVISOR EXAMINATION: MRI FOOT WO CONTRAST LEFT CLINICAL [...] or abscess. Mild diffuse edema is present. [facility]-[id number] posterior * Insert peripheral IV (04/28/2017 3:25 [...] Vancomycin Sensitive. (A) Specimen Performing Laboratory Wound [facility] DEPARTMENT OF PATHOLOGY AND GENOMIC MEDICINE [address] [place] [address] Organism Antibiotic Method Susceptibility Enterococcus faecalis Ampicillin [...] Specimen Site: Wound Specimen Performing Laboratory Wound [facility] DEPARTMENT OF PATHOLOGY AND GENOMIC MEDICINE [address] [place] [address] * Anaerobic culture (04/28/2017 3:05 PM) Only the most recent of 3 results within the time period is included. Component Value Ref Range Anaerobic culture isolate No anaerobic organisms isolated. Comment: Specimen Information Specimen Source: Wound Specimen Site: Wound Specimen Performing Laboratory Wound [facility] DEPARTMENT OF PATHOLOGY AND GENOMIC MEDICINE [address] [place] [address] * Smear review (04/28/2017 4:44 AM) Only the most recent of 5 results within the time period is included. Component Value Ref Range Platelet slide review Edward adequate Anisocytosis Moderate Polychromasia Slight Schistocytes Occasional Target cells Occasional Specimen Performing Laboratory [facility] DEPARTMENT OF PATHOLOGY AND GENOMIC MEDICINE [address] [place] [address] * Phosphorus level (04/28/2017 4:44 AM) Only the most recent of 10 results within the time period is included. Component Value Ref Range Phosphorus 8.2 (HH) 2.5 - 4.5 mg/dL Comment: Results called to and read back by KAILEY PORTILLO/Praneeth at 04/28/2017 06:21 by _IV_. Specimen Performing Laboratory Plasma specimen [facility] DEPARTMENT OF PATHOLOGY AND GENOMIC MEDICINE [address] [address] * Magnesium level (04/28/2017 4:44 AM) Only the most recent of 11 results within the time period is included. Component Value Ref Range Magnesium 2.10 1.60 - 2.40 mg/dL Specimen Performing Laboratory Plasma specimen [facility] DEPARTMENT OF PATHOLOGY AND GENOMIC MEDICINE [address] [place] [address] * Hepatitis B surface antigen (04/26/2017 10:10 AM) Only the most recent of 4 results within the time period is included. Component Value Ref Range Hepatitis B surface Ag Non-reactive Non-reactive Specimen Performing Laboratory Blood [facility] DEPARTMENT OF PATHOLOGY AND GENOMIC MEDICINE [address] [place] [address] * Lactic acid level, SEPSIS - Now and repeat 2x every 3 hours (04/26/2017 12:48 AM) Only the most recent of 2 results within the time period is included. Component Value Ref Range Lactic acid 0.6 0.5 - 2.2 mmol/L Specimen Performing Laboratory Blood [facility] DEPARTMENT OF PATHOLOGY AND GENOMIC MEDICINE [address] [place] [address] * XR Foot 3+ Vw Left (04/25/2017 5:32 PM) Specimen Performing Laboratory [facility] [address] [place] [address] Narrative EXAMINATION:XR FOOT 3VW LEFT CLINICAL HISTORY:left diabetic foot ulcer COMPARISON:None. IMPRESSION: There is a displaced fracture of the distal fifth metatarsal where there is an apparent soft tissue ulceration. This may represent superimposed osteomyelitis. There is diffuse soft tissue swelling. [id number] Procedure Note Hm Interface, Radiology Results Incoming - 04/25/2017 5:42 PM BAGGAGE HANDLING SUPERVISOR EXAMINATION: XR FOOT 3 VW LEFT CLINICAL HISTORY: left diabetic foot ulcer COMPARISON: None. IMPRESSION: There is a displaced fracture of the distal fifth metatarsal where there is an apparent soft tissue ulceration. This may represent superimposed osteomyelitis. There is diffuse soft tissue swelling. [id number] * Blood culture, aerobic & anaerobic (04/25/2017 3:54 PM) Only the most recent of 4 results within the time period is included. Component Value Ref Range Blood culture isolate No growth after 5 days of incubation. Comment: Specimen Information Specimen Source: Blood Specimen Site: Peripheral Forearm Left Specimen Performing Laboratory Blood [facility] DEPARTMENT OF PATHOLOGY AND GENOMIC MEDICINE [address] [place] [address] * Comprehensive metabolic panel (04/25/2017 3:47 PM) [...] 1.2 mg/dL Specimen Performing Laboratory Plasma specimen [facility] DEPARTMENT OF PATHOLOGY AND GENOMIC MEDICINE [address] [place] [address] * ECG ED Preliminary Interpretation - NOT AN ORDER (04/13/2017 8:22 AM) Only the most recent of 4 results within the time period is included. Narrative Ayala Jenkins Jr., MD 04/13/20178:22 AM ECG ED Preliminary Interpretation - Not an Order Performed by: AYALA JENKINS JR. Authorized by: AYALA JENKINS JR. ECG reviewed by ED Physician in the absence of a orthopaedic nurse: yes Previous ECG: Previous ECG:Unavailable Interpretation: Interpretation: abnormal Rate: ECG rate:88 ECG rate assessment: normal Rhythm: Rhythm: sinus rhythm Ectopy: Ectopy: none QRS: QRS axis:Normal QRS intervals:Normal Conduction: Conduction: normal ST segments: ST segments:Normal T waves: T waves: inverted Inverted:V6 Q waves: Q waves:III and aVF Comments: EKG completed at 1831 04/04/2017 * IR Endovascular Consult (02/27/2017 4:06 PM) Specimen Performing Laboratory [facility] [address] [place] [address] Narrative EXAMINATION:IR ENDOVASCULAR CONSULT REASON FOR EXAMINATION:Renal Dialysis COMPARISON: None FINDINGS: The skin overlying the left infraclavicular region was prepped and draped in a sterile manner. The temporary dialysis catheter was then removed. The patient tolerated the procedure well. Hemostasis was obtained. The patient will be discharged from the radiology department in stable condition. IMPRESSION: 1. Removal of a nontunneled temporary hemodialysis catheter [id number] Procedure Note Interface, Radiology Results Incoming - 02/27/2017 7:00 PM BAGGAGE HANDLING SUPERVISOR EXAMINATION: IR ENDOVASCULAR CONSULT REASON FOR EXAMINATION: [...] Removal of a nontunneled temporary hemodialysis catheter [id number] * Hybrid or fluoroscopy (02/23/2017 1:00 PM) Narrative See operative report for the same day * XR Chest 1 Vw Portable (02/23/2017 7:40 AM) Specimen Performing Laboratory [facility] [address] [place] [address] Narrative EXAMINATION:XR CHEST 1 VW PORTABLE CLINICAL [...] Bones:unremarkable. IMPRESSION: Negative for acute cardiopulmonary disease. [id number] Procedure Note Interface, Radiology Results Incoming - 02/23/2017 8:07 AM BAGGAGE HANDLING SUPERVISOR EXAMINATION: XR CHEST 1 VW PORTABLE CLINICAL [...] unremarkable. IMPRESSION: Negative for acute cardiopulmonary disease. [id number] * IR Central Catheter Placement Replace Removal Fluoroscopy (02/21/2017 2:36 PM ) Specimen Performing Laboratory [facility] [address] [place] [address] Narrative PERFORMING RADIOLOGISTS: Erlin Gonzalez MD ASSISTANTS: None. ANESTHESIA: No sedation was administered. Lidocaine 1% and lidocaine 1% with epinephrine were used for local anesthetic. PRE PROCEDURE DIAGNOSIS: Need for dialysis. POST PROCEDURE DIAGNOSIS: Status post placement of non tunneled dialysis catheter. PROCEDURE: 1.Ultrasound-guided access of left internal jugular vein. 2.Placement of left internal jugular approach dual glide13 Sammarinese non- tunneled hemodialysis catheter. PROCEDURE IN DETAIL: [...] serial dilatation a maximal diameter of 12 Sammarinese was performed. Then, a 13 Sammarinese 15 cm long dual glide non tunneled [...] IMPRESSION: Successful fluoroscopic-guided placement of a 13 Sammarinese non tunneled dialysis catheter via the leftinternal jugular vein. The catheter tip lies at the right atrium/superior vena cava junction and is ready for use. [id number] [id number] Procedure Note Hm Interface, Radiology Results Incoming - 02/21/2017 3:01 PM BAGGAGE HANDLING SUPERVISOR PERFORMING RADIOLOGISTS: Erlin Gonzalez MD ASSISTANTS: None. ANESTHESIA: No sedation was administered. Lidocaine 1% and lidocaine 1% with epinephrine were used for local anesthetic. PRE PROCEDURE DIAGNOSIS: Need for dialysis. POST PROCEDURE DIAGNOSIS: Status post placement of non tunneled dialysis catheter. PROCEDURE: 1. Ultrasound-guided access of left internal jugular vein. 2. Placement of left internal jugular approach dual glide 13 Sammarinese non- tunneled hemodialysis catheter. PROCEDURE IN DETAIL: [...] serial dilatation a maximal diameter of 12 Sammarinese was performed. Then, a 13 Sammarinese 15 cm long dual glide non tunneled [...] IMPRESSION: Successful fluoroscopic-guided placement of a 13 Sammarinese non tunneled dialysis catheter via the leftinternal jugular vein. The catheter tip lies at the right atrium/superior vena cava junction and is ready for use. [id number] [id number] * IR Central Catheter Placement Us (02/21/2017 2:36 PM) Specimen Performing Laboratory [facility] [address] [place] [address] Narrative PERFORMING RADIOLOGISTS: Erlin Gonzalez MD ASSISTANTS: None. ANESTHESIA: No sedation was administered. Lidocaine 1% and lidocaine 1% with epinephrine were used for local anesthetic. PRE PROCEDURE DIAGNOSIS: Need for dialysis. POST PROCEDURE DIAGNOSIS: Status post placement of non tunneled dialysis catheter. PROCEDURE: 1.Ultrasound-guided access of left internal jugular vein. 2.Placement of left internal jugular approach dual glide13 Sammarinese non- tunneled hemodialysis catheter. PROCEDURE IN DETAIL: [...] serial dilatation a maximal diameter of 12 Sammarinese was performed. Then, a 13 Sammarinese 15 cm long dual glide non tunneled [...] IMPRESSION: Successful fluoroscopic-guided placement of a 13 Sammarinese non tunneled dialysis catheter via the leftinternal jugular vein. The catheter tip lies at the right atrium/superior vena cava junction and is ready for use. [id number] [id number] Procedure Note Hm Interface, Radiology Results Incoming - 02/21/2017 3:01 PM BAGGAGE HANDLING SUPERVISOR PERFORMING RADIOLOGISTS: Erlin Gonzalez MD ASSISTANTS: None. ANESTHESIA: No sedation was administered. Lidocaine 1% and lidocaine 1% with epinephrine were used for local anesthetic. PRE PROCEDURE DIAGNOSIS: Need for dialysis. POST PROCEDURE DIAGNOSIS: Status post placement of non tunneled dialysis catheter. PROCEDURE: 1. Ultrasound-guided access of left internal jugular vein. 2. Placement of left internal jugular approach dual glide 13 Sammarinese non- tunneled hemodialysis catheter. PROCEDURE IN DETAIL: [...] serial dilatation a maximal diameter of 12 Sammarinese was performed. Then, a 13 Sammarinese 15 cm long dual glide non tunneled [...] IMPRESSION: Successful fluoroscopic-guided placement of a 13 Sammarinese non tunneled dialysis catheter via the leftinternal jugular vein. The catheter tip lies at the right atrium/superior vena cava junction and is ready for use. [id number] [id number] * Troponin (02/20/2017 6:22 PM) Only the [...] myocardial injury. Specimen Performing Laboratory Plasma specimen [facility] DEPARTMENT OF PATHOLOGY AND GENOMIC MEDICINE [address] [place] [address] [place] [address] * B natriuretic peptide (02/20/2017 6:22 PM) Only the most recent of 2 results within the time period is included. Component Value Ref Range BNP 156 (H) 0 - 100 pg/mL Specimen Performing Laboratory Blood [facility] DEPARTMENT OF PATHOLOGY AND GENOMIC MEDICINE [address] [place] [address] [place] [address] * Transfuse RBC (02/08/2017 5:31 PM) Only the most recent of 5 results within the time period is included. * Total iron binding capacity (02/05/2017 6:30 AM) Component Value Ref Range Iron level 97 76 - 198 ug/dL Iron binding capacity 160 (L) 271 - 474 ug/dL % Saturation 60.6 (H) 20.0 - 40.0 % Specimen Performing Laboratory Plasma specimen [facility]PART[facility] OF PATHOLOGY AND GENOMIC MEDICINE [address] [place] [address] * Ferritin level (02/05/2017 6:30 AM) Component Value Ref Range Ferritin level 1,561 (H) 18 - 158 ng/mL Specimen Performing Laboratory Serum [facility] DEPARTMENT OF PATHOLOGY AND GENOMIC MEDICINE [address] [place] [address] * Urinalysis screen and microscopy, with reflex [...] None seen UA Specimen Performing Laboratory Urine [facility] DE[facility]MENT OF PATHOLOGY AND GENOMIC MEDICINE [address] [place] [address] * Urine culture (01/29/2017 10:27 AM) Component Value Ref Range Urine culture SEE COMMENTComment: Bacteriuria screen negative. Specimen Performing Laboratory Urine [facility] DE[facility]MENT OF PATHOLOGY AND GENOMIC MEDICINE [address] [place] [address] * Hepatitis B surface Ab, quantitative (01/28/2017 [...] Cellular and Tissue-Based Products (HCT/P). Performed by [facility], [address] [place] [id number] [email or web address], Raheem Cox MD - Lab. Director Specimen Performing Laboratory [facility] [address] [place] [id number] * CRITICAL CARE (01/28/2017 2:20 AM) Narrative [...] extremity (01/27/2017 10:38 PM) Specimen Performing Laboratory [facility] [address] [place] [address] Narrative EXAMINATION:US DUPLEX VENOUS LOWER EXTREMITY RIGHT [...] is no evidence of deep venous thrombosis. [facility]-[id number] Procedure Note Interface, Radiology Results Incoming - [...] is no evidence of deep venous thrombosis. [facility]-[id number] * XR Foot 3+ Vw Right (01/27/2017 7:49 PM) Specimen Performing Laboratory [facility] [address] [place] [address] Narrative XR FOOT 3VW RIGHT CLINICAL INDICATION:OSTEOMYELITIS [...] fracture is identified. The bones are demineralized. [facility]-[id number] Procedure Note Interface, Radiology Results Incoming - [...] fracture is identified. The bones are demineralized. [id number] * IR Evaluation of Dialysis Fistula/Graft w Angioplasty (11/03/2016 5:26 PM) Only the most recent of 2 results within the time period is included. Specimen Performing Laboratory [facility] [address] [place] [address] Addenda Addendum by Erlin Gonzalez MD on [...] needle. Needle was exchanged for a 5 Sammarinese micropuncture sheath. Inner portion of the micropuncture [...] The needle was exchanged for a 5 Sammarinese micropuncture sheath. The inner portion of the sheath and microwire were exchanged for 0.035 inch Bentson wire. The micropuncture sheath was exchanged for a 6 Sammarinese vascular sheath. A roadmap function to highlight anatomy, a 5 Sammarinese Evans catheter and a 0.035 inch glide wire were advanced across the arteriovenous anastomosis into the distal right brachial artery. The Glidewire was exchanged for a Bentson wire. The Evans catheter was exchanged for first a 6 mm x 2 cm [place] balloon. Angioplasty was performed along the length [...] a maximal diameter of 6 mm. 3. Baptism of excellent pulse and thrill throughout the [...] needle. Needle was exchanged for a 5 Sammarinese micropuncture sheath. Inner portion of the micropuncture [...] The needle was exchanged for a 5 Sammarinese micropuncture sheath. The inner portion of the sheath and microwire were exchanged for 0.035 inch Bentson wire. The micropuncture sheath was exchanged for a 6 Sammarinese vascular sheath. A roadmap function to highlight anatomy, a 5 Sammarinese Evans catheter and a 0.035 inch glide wire were advanced across the arteriovenous anastomosis into the distal right brachial artery. The Glidewire was exchanged for a Bentson wire. The Evans catheter was exchanged for first a 6 mm x 2 cm [place] balloon. Angioplasty was performed along the length [...] a maximal diameter of 6 mm. 3. Baptism of excellent pulse and thrill throughout the [...] needle. Needle was exchanged for a 5 Sammarinese micropuncture sheath. Inner portion of the micropuncture [...] The needle was exchanged for a 5 Sammarinese micropuncture sheath. The inner portion of the sheath and microwire were exchanged for 0.035 inch Bentson wire. The micropuncture sheath was exchanged for a 6 Sammarinese vascular sheath. A roadmap function to highlight anatomy, a 5 Sammarinese Evans catheter and a 0.035 inch glide wire were advanced across the arteriovenous anastomosis into the distal right brachial artery. The Glidewire was exchanged for a Bentson wire. The Evans catheter was exchanged for first a 6 mm x 2 cm [place] balloon. Angioplasty was performed along the length [...] a maximal diameter of 6 mm. 3. Baptism of excellent pulse and thrill throughout the [...] indicated. (A [id number]) Specimen Performing Laboratory Blood [facility] DEPARTMENT OF PATHOLOGY AND GENOMIC MEDICINE [address] [place] [address] * Lipid panel (11/02/2016 6:26 PM) Component [...] (>=200 mg/dL) Specimen Performing Laboratory Plasma specimen [facility] DEPARTMENT OF PATHOLOGY AND GENOMIC MEDICINE [address] [place] [address] * ECG Pre/Post Op (08/02/2016 10:11 AM) Component Value Ref Range Ventricular rate 85 Atrial rate 85 OR interval 212 QRSD interval 84 QT interval 380 QTC interval 452 P axis 1 42 QRS axis 1 -30 T wave axis -1 EKG impression Sinus rhythm with 1st degree AV block-Left axis deviation-Minimal voltage criteria for LVH, may be normal variant-Possible Lateral infarct , age undetermined-Inferior infarct , age undetermined-Abnormal ECG-No previous ECGs available- Specimen Performing Laboratory [facility] [address] [place] [address] after 06/28/2016 Insurance Payer Benefit Subscriber ID Type Phone Address Plan / Group [facility] MEDICA[facility] xxxxxxxxx HMO COMM STAR+ [employer] Home: [address] [place] [id number]
[2017-06-29] MEDS ORDERED: CALCIUM GLUCONATE 10% INJ 0.465 MEQ/ML VIAL ONE (15:00)
[2017-06-29] MEDS ORDERED: SODIUM BICARBONATE 8.4% 50 ML VIAL IV STA (16:07)
[2017-06-29] MEDS ORDERED: SODIUM BICARBONATE 8.4% INJ 50 ML SYR IV NR (16:30)
--- NOTE | 2017-06-29 16:44 | Consultation ---
DATE OF CONSULTATION: June 29, 2017 RENAL CONSULTATION Thank you for this consultation. Mr. Aponte is a well known patient of mine with end-stage renal disease on hemodialysis Monday, Monday and Monday at [facility] facility under our care. The patient has a left arm AV fistula for dialysis. The patient apparently came into the emergency room with complaints of feeling weak and was found to have on blood work hemoglobin of 9.3, which has gone up from previous hemoglobins, which were low in the dialysis clinic. The patient was found to have a potassium slightly high at 6.2. His next dialysis treatment is tomorrow. The patient has already been given IV calcium gluconate, IV insulin, IV D50 and bicarb. He has refused the Kayexalate. He is not in any acute urgent need for dialysis tonight. No fever, no chills, no nausea, no vomiting, no diarrhea, no abdominal pain, no other symptoms. PAST MEDICAL HISTORY: End-stage renal disease, hypertension, diabetes mellitus, history of osteomyelitis with peripheral vascular disease. He is status post left [id number] amputation. ALLERGIES: CODEINE, LISINOPRIL AND MORPHINE. SOCIAL HISTORY: No tobacco, no alcohol use. FAMILY HISTORY: Noncontributory. REVIEW OF SYSTEMS: See HPI, otherwise all systems negative. MEDICATIONS: Reviewed per chart. PHYSICAL EXAMINATION VITAL SIGNS: Blood pressure is 150s/70s, heart rate 84, respirations 20, afebrile. HEENT AND NECK: No cervical lymphadenopathy. Neck is supple, without masses. No JVD. Moist-appearing oral mucosa. SKIN: Appears to be moist, with good skin turgor. CHEST: Good expansion. No chest wall tenderness. LUNGS: Clear to auscultation bilaterally. CARDIOVASCULAR: S1 and S2. No obvious gallop or murmur. ABDOMEN: Soft. Positive bowel sounds. Nontender. No organomegaly. EXTREMITIES: Evidence of 1+ edema in the right lower extremity. Left BKA. NEUROLOGIC: Awake, alert, oriented x3. Grossly nonfocal. LABORATORY DATA: Sodium 134, potassium 6.2, chloride 100, bicarb 21, BUN 16, creatinine 8.88, phosphorous 6.6, magnesium 1.8. IMPRESSION AND PLAN 1. End-stage renal disease. Will do dialysis tomorrow per schedule of Monday, Monday and Monday. No urgent need for dialysis today. 2. Hypertension. Continue home medications. 3. Anemia of chronic disease. Hemoglobin is 9.3. He does not require blood transfusion at this time. Will continue to monitor closely. 4. Hyperkalemia has been treated medically in the ER. Recheck lab again in 4 hours and then again in the morning and make further recommendations. Potassium needs to be retreated tonight. Will retreat, otherwise will wait to do dialysis in the morning. 5. Anemia of chronic disease as outlined above. 6. Hypertension. Continue home medications. Will make further recommendations. Thank you once again for the consult. Job#: [id number] GH cc:SOFÍA AGGARWAL MD
[2017-06-29 16:57] LABS: CLARITY,URINE SL CLOUDY (CLEAR); COLOR,URINE YELLOW (YELLOW); LEUKOCYTE ESTERASE ,URINE NEGATIVE (NEGATIVE); NITRITE,URINE NEGATIVE (NEGATIVE); PROTEIN,URINE DIPSTICK 2+ (NEGATIVE)
[2017-06-29 16:58] LABS: BILIRUBIN,URINE NEGATIVE (NEGATIVE); KETONES,URINE NEGATIVE (NEGATIVE); URINE UROBILINOGEN 0.2 mg/dL (0.2 - 1)
[2017-06-29 17:07] LABS: EPITHELIAL CELLS,URINE MODERATE /LPF; RBC,URINE 0-5 /HPF (0-5); RENAL EPITHELIAL CELLS,URINE MODERATE
[2017-06-29 18:30] VITALS: BP 165/73
[2017-06-29 20:00] VITALS: BP 155/68
[2017-06-29 20:59] LABS: ANION GAP 15.4 mmol/L (8-16); CALCIUM 8.6 mg/dL (8.4-10.2); CREATININE, SERUM 8.87 mg/dL (0.72-1.25)
[2017-06-29 21:03] LABS: POTASSIUM 6.4 mmol/L (3.5-5.1)
[2017-06-30] VITALS (9 sets, daily range): BP systolic 134–211; BP diastolic 62–99
[2017-06-30] MEDS: ONDANSETRON HCL INJ 2 MG/ML VIAL IV PRN (02:12)
[2017-06-30] MEDS: CLONIDINE HCL 0.2 MG TAB PO PRN ×2 (05:04→11:38)
[2017-06-30] MEDS ORDERED: METOPROLOL TARTRATE 25 MG TAB PO SCH (05:30)
[2017-06-30 07:17] LABS: BASOPHILS % 0.8 % (0.0-1.0); EOSINOPHILS # (AUTO) 0.1 (0.0-0.4); EOSINOPHILS % 2.3 % (0.0-6.0); HEMATOCRIT 26.4 % (38.2-49.6); HEMOGLOBIN 8.2 g/dL (14.0-18.0); LYMPHOCYTES # (AUTO) 0.9 (1.0-3.2); MEAN CORPUSCULAR HGB CONC 31.1 g/dL (31-35); MEAN CORPUSCULAR VOLUME 93.3 fL (81-99); MONOCYTES # (AUTO) 0.4 (0.2-0.8); MONOCYTES % 8.4 % (4.4-11.3); NEUTROPHILS # (AUTO) 3.7 (2.1-6.9); NEUTROPHILS % 71.1 % (38.7-80.0); PLATELET COUNT 187 x10e3/uL (140-360); RED BLOOD COUNT 2.83 x10e6/uL (4.3-5.7); RED CELL DISTRIBUTION WIDTH 16.6 % (11.7-14.4)
[2017-06-30 07:45] LABS: ALBUMIN 2.7 g/dL (3.5-5.0); ALBUMIN/GLOBULIN RATIO 0.6 (0.8-2.0); CALCIUM 8.7 mg/dL (8.4-10.2); CREATININE, SERUM 9.06 mg/dL (0.72-1.25); MAGNESIUM 1.6 MG/DL (1.3-2.1); PHOSPHORUS 7.3 MG/DL (2.3-4.7)
[2017-06-30] MEDS: METOCLOPRAMIDE HCL 10 MG TAB PO SCH ×4 (08:32→21:00)
[2017-06-30] MEDS: INSULIN DETEMIR 100 UNIT/ML PEN SQ SCH (08:33)
[2017-06-30] MEDS ORDERED: SODIUM BICARBONATE 8.4% INJ 50 ML SYR IV STA (08:33)
[2017-06-30] MEDS: NIFEDIPINE CR 30 MG TAB PO SCH ×2 (08:33→17:25)
[2017-06-30] MEDS: ACETAMINOPHEN 325 MG TAB PO PRN (09:30)
[2017-06-30] MEDS: LOPERAMIDE HCL 2 MG CAP PO PRN (09:30)
[2017-06-30] MEDS ORDERED: SODIUM CHLORIDE 0.9% 250ML 250 ML IV ONE (10:30)
[2017-06-30] MEDS: LORAZEPAM 0.5 MG TAB PO PRN ×2 (10:50→18:29)
[2017-06-30] MEDS ORDERED: SODIUM CHLORIDE 0.9% 1000ML 2,000 ML ONE (12:40)
[2017-06-30] MEDS ORDERED: LIDOCAINE HCL 2% LOCAL 20 ML VIAL ONE (14:08)
[2017-06-30] MEDS ORDERED: FENTANYL CITRATE/PF 100MCG/2 ML INJ ONE ×2 (14:08→15:14)
[2017-06-30] MEDS ORDERED: MIDAZOLAM HCL 2 MG/2 ML VIAL ONE (14:08)
[2017-06-30] MEDS ORDERED: SODIUM CHLORIDE 0.9% 500ML 1,000 ML ONE (14:09)
--- NOTE | 2017-06-30 14:10 | Progress Note ---
DATE: June 30, 2017 RENAL PROGRESS NOTE SUBJECTIVE: Followed for end-stage renal disease on dialysis Monday, Monday and Monday. Patient had dialysis early this morning. Potassium was still high at 7 this morning despite giving medical treatment yesterday. The patient has been noncompliant with medications such as sodium bicarbonate in the past, also refuses Kayexalate, also refuses Veltassa. In any case, the patient is otherwise stable, tolerating dialysis. However, he had issues with his AV fistula that clotted off after about 2 hours 45 minutes of dialysis. No nausea, no vomiting, no shortness of breath. OBJECTIVE VITAL SIGNS: Stable as follows: Blood pressure was elevated today prior to dialysis at 211/99. However, it did come down somewhat with dialysis. Pulse 92. Afebrile. LUNGS: Clear to auscultation bilaterally. CARDIOVASCULAR: S1 and S2. No rub. ABDOMEN: Soft. Nontender. EXTREMITIES: No edema over left BKA stump. Right lower extremity has 1+ edema. LABS: H and H 8.2 and 26.4. Chemistries: Potassium this morning was 7, sodium 134, BUN 69, creatinine 9, CO2 22. Phosphorus 7.3, magnesium 1.6. IMPRESSION AND PLAN 1. End-stage renal disease. Continue dialysis Monday, Monday and Monday. 2. Hypertension. Blood pressure is elevated. Would resume blood pressure medications and titrate up the doses. 3. Hyperkalemia. Dialyzed on a low potassium 1 K bath. Repeat lab in the morning and make further recommendations. 4. Malfunctioning arteriovenous fistula. Will get interventional radiology to do a fistulogram, which may not be done over the weekend. We will have to wait until next week to have it done. 5. Hyperphosphatemia. Will resume Renvela. The patient is often noncompliant with this medication. 6. Anemia of chronic disease. Will start him on Procrit or equivalent. The patient also received 1 unit of PRBC during dialysis today. Thank you once again. Job#: [id number]
[2017-06-30] MEDS: LABETALOL HCL 5 MG/ML 20ML VIAL IV PRN (14:34)
[2017-06-30] MEDS ORDERED: HEPARIN SOD (PORCINE) 1000 UNIT/ML 30ML ONE (14:59)
[2017-06-30] MEDS ORDERED: ALTEPLASE RECOMBINANT 2 MG/2 ML VIAL ONE (15:04)
[2017-06-30] MEDS ORDERED: IOPAMIDOL 370 MG/ML 200 ML INFUS..BTL INJ ONE (15:08)
[2017-06-30] MEDS ORDERED: SODIUM CHLORIDE 0.9% 500ML 500 ML ONE (15:27)
[2017-06-30] MEDS ORDERED: HYDRALAZINE HCL 20 MG/ML VIAL ONE (15:45)
[2017-06-30] MEDS ORDERED: HYDROCODONE/APAP 7.5MG-325MG 1 EA TAB PO PRN (17:15)
--- NOTE | 2017-06-30 17:17 | Diagnostic Imaging Report ---
Fistulogram June 30, 2017 Pre-Procedure Diagnosis: Right upper extremity AV fistula thrombosis Post-procedure Diagnosis: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 Media Marketing Specialist: Екатерина Braun Drying Can Worker: None Sedation: None. Intravenous fentanyl was administered for pain control. Heart rate, rhythm and oxygen saturation were monitored in real-time by a dedicated nurse under my direct supervision. Blood pressure was monitored and 5 minute increments. 1% lidocaine was used for local anesthesia. Radiation Dose: Fluoroscopy time: minutes Estimate blood loss: 40 mL Blood administered: None Complications: None Implants/Grafts: None Specimen: None Procedure: Informed consent was obtained and the patient placed supine. A timeout was performed. Preliminary ultrasound of the right upper arm was performed. The AV fistula was prepped and draped in standard sterile fashion. Using ultrasound guidance antegrade access to the AV fistula was achieved with a 21-gauge needle. Needle was exchanged for a KUB catheter, which was used for pullback fistulogram (see findings below). 3000 units intravenous heparin was administered. The indwelling clot was laced with 4 mg TPA. Mechanical thrombectomy was performed with the AngioJet device. Subsequently, an 8 mm balloon was insufflated in the regions of focal stenosis along the proximal aspect of the fistula outflow. This resulted in resolution of thrombus in this segment. Attention was turned to the arterial anastomosis. Retrograde access was achieved with ultrasound guidance. The catheter catheter and Glidewire were advanced across the arteriovenous anastomosis. A 6 mm balloon was insufflated, demonstrating multifocal flow-limiting stenosis in the proximal segment. Additional thrombus at the proximal aspect of the fistula was pulled back into the fistula and pushed into the venous outflow. This resulted in a return to pulsatility in the proximal aspect of the AV fistula. Follow-up venogram demonstrated lack of antegrade flow from the proximal to the distal aspect of the fistula. Again, the 8 mm balloon was advanced to the region of stenosis (greater than 85% luminal narrowing), and prolonged insufflation performed up to 16mmHg pressure (beyond balloon burst pressure) without balloon failure. The high-grade stenosis proved recalcitrant to recurrent angioplasty. Subsequent evaluation revealed re-thrombosis of the proximal fistula conduit. Given the inability to resolve the high-grade stenosis and subsequent rapid rethrombosis the procedure was terminated. Neither high-pressure balloons nor a cutting balloon were available at the time of the procedure. The initial antegrade access site was closed with a [id number] Ethilon suture, with the distal retrograde access closed with manual compression. The findings were discussed with Dr. Barker at the procedure conclusion. Findings: 1. Right brachial-brachial fistula. 2. Normal central venogram. 3. Multifocal stenosis of the AV fistula extending from the proximal through the distal segment. In particular, the distal segment stenosis was recalcitrant to repeated balloon angioplasty resulting in rapid rethrombosis after initial pharmacologic and mechanical thrombolysis and resumption of pulsatile flow to the proximal segment. Impression: The patient presented with acute thrombosis of the right upper extremity fistula. Initial declot was successful, with resumption of pulsatile flow to the proximal segment after mechanical and pharmacologic thrombectomy combined with proximal angioplasty. However, rapid rethrombosis occurred as a high-grade stenosis of the venous outflow (at about the mid segment of the humerus) was recalcitrant to angioplasty. Plan: 1. The findings were discussed with Dr. Barker. 2. Temporary dialysis catheter placement was deferred until vascular surgery evaluation for surgical revision. This report was generated with voice-recognition technology. Errors in harnessmaker apprentice can occur. Please interpret accordingly and contact a radiologist if there are any questions regarding the report. Signed by: Dr. Elder Braun M.D. on 06/30/2017 5:13 PM
[2017-06-30] MEDS: EPOETIN ALFA 10000 UNIT/ML VIAL SC SCH (17:23)
[2017-06-30] MEDS: SODIUM BICARBONATE 650 MG TAB PO SCH ×2 (17:23→21:00)
[2017-06-30] MEDS: SEVELAMER CARBONATE 800 MG TAB PO SCH (17:23)
[2017-06-30] MEDS: METOPROLOL TARTRATE 50 MG TAB PO SCH (17:24)
[2017-06-30] MEDS ORDERED: HYDROMORPHONE 1MG/1ML INJ IV ONE (17:30)
[2017-06-30] MEDS: TRAMADOL HCL 50 MG TAB PO PRN (18:45)
[2017-06-30] MEDS ORDERED: ACETAMINOPHEN 325 MG TAB PO PRN (18:45)
[2017-07-01] VITALS (8 sets, daily range): BP systolic 97–184; BP diastolic 69–85
[2017-07-01] MEDS: ONDANSETRON HCL INJ 2 MG/ML VIAL IV PRN ×2 (01:20→06:33)
[2017-07-01] MEDS: CLONIDINE HCL 0.2 MG TAB PO PRN (01:40)
[2017-07-01] MEDS: LORAZEPAM 0.5 MG TAB PO PRN ×3 (04:23→20:51)
[2017-07-01 07:21] LABS: BASOPHILS # (AUTO) 0.1 (0.0-0.1); EOSINOPHILS # (AUTO) 0.1 (0.0-0.4); EOSINOPHILS % 2.1 % (0.0-6.0); LYMPHOCYTES # (AUTO) 0.6 (1.0-3.2); LYMPHOCYTES % 10.7 % (18.0-39.1); MEAN CORPUSCULAR HEMOGLOBIN 28.5 pg (28-32); MEAN CORPUSCULAR VOLUME 91.8 fL (81-99); MONOCYTES # (AUTO) 0.4 (0.2-0.8); MONOCYTES % 6.8 % (4.4-11.3); NEUTROPHILS # (AUTO) 4.6 (2.1-6.9); NEUTROPHILS % 79.1 % (38.7-80.0); PLATELET COUNT 196 x10e3/uL (140-360); RED BLOOD COUNT 3.16 x10e6/uL (4.3-5.7); RED CELL DISTRIBUTION WIDTH 16.5 % (11.7-14.4)
[2017-07-01 07:55] LABS: ANION GAP 17.3 mmol/L (8-16); CALCIUM 8.8 mg/dL (8.4-10.2); CREATININE, SERUM 7.33 mg/dL (0.72-1.25); MAGNESIUM 1.8 MG/DL (1.3-2.1); PHOSPHORUS 7.3 MG/DL (2.3-4.7)
[2017-07-01 07:59] LABS: POTASSIUM 6.3 mmol/L (3.5-5.1)
[2017-07-01] MEDS: SEVELAMER CARBONATE 800 MG TAB PO SCH ×3 (08:00→16:26)
[2017-07-01] MEDS: METOCLOPRAMIDE HCL 10 MG TAB PO SCH ×4 (08:10→23:24)
[2017-07-01] MEDS: INSULIN DETEMIR 100 UNIT/ML PEN SQ SCH (08:11)
[2017-07-01] MEDS: NIFEDIPINE CR 30 MG TAB PO SCH ×2 (08:11→16:49)
[2017-07-01] MEDS: SODIUM BICARBONATE 650 MG TAB PO SCH ×3 (08:11→21:00)
[2017-07-01] MEDS: METOPROLOL TARTRATE 50 MG TAB PO SCH ×2 (08:11→17:00)
[2017-07-01] MEDS ORDERED: SOD POLYSTYRENE SULFONATE SUSP 15 GM/60 ML BTL PO ONE (09:00)
[2017-07-01] MEDS ORDERED: SODIUM BICARBONATE 8.4% INJ 50 ML SYR IV ONE (09:15)
[2017-07-01 10:54] LABS: INR 1.31; PROTHROMBIN TIME 15.3 seconds (11.9-14.5)
[2017-07-01 10:55] LABS: PARTIAL THROMBOPLASTIN TIME 30.9 seconds (23.8-35.5)
[2017-07-01] MEDS: LABETALOL HCL 5 MG/ML 20ML VIAL IV PRN ×2 (12:06→23:24)
[2017-07-01] MEDS ORDERED: SODIUM CHLORIDE 0.9% 500ML 500 ML ONE ×2 (13:44→14:10)
[2017-07-01] MEDS ORDERED: LIDOCAINE HCL 2% LOCAL 20 ML VIAL ONE (13:44)
--- NOTE | 2017-07-01 13:58 | Progress Note ---
DATE: July 01, 2017 REASON FOR CONSULTATION: End-stage renal disease. SUBJECTIVE: No acute events overnight. OBJECTIVE GENERAL: Lying comfortably in bed, in no acute distress. VITAL SIGNS: Temperature 97.4, heart rate 65, respiratory rate 20, blood pressure 179/77. O2 sat is 100% on room air. HEENT: NC, AT, EOMI. LUNGS: Clear to auscultation bilaterally. No wheezing or rales. HEART: Regular rhythm, S1 and S2. EXTREMITIES: Positive for edema. LABS: Reviewed on electronic medical record. Significant for hemoglobin of 9, potassium 6.3, sodium 132, BUN 51, and creatinine 7.3. IMAGING: Reviewed on electronic medical record. ASSESSMENT AND PLAN 1. End-stage renal disease. Plan was to continue dialysis on Monday, Monday and Monday schedule. However, hyperkalemia today. Will consult IR for tunneled dialysis catheter placement and dialyze later today. In the meantime, will give an amp of bicarbonate and a dose of Kayexalate for the hyperkalemia. 2. Hyperphosphatemia. Continue Renvela. 3. Accelerated hypertension. Continue metoprolol, hydralazine, and nifedipine. 4. Anemia of chronic kidney disease. Continue erythropoietin. 5. Nonfunctional fistula. Has a clotted fistula. Will consult Dr. Murrell for assistance. Appreciate IR's assistance in placing a tunneled catheter today so the patient can get dialyzed later today. Job#: [id number]
[2017-07-01] MEDS ORDERED: HEPARIN SOD (PORCINE) 1000 UNIT/ML 30ML ONE (14:10)
[2017-07-01] MEDS ORDERED: FENTANYL CITRATE/PF 100MCG/2 ML INJ ONE (14:10)
--- NOTE | 2017-07-01 16:16 | Diagnostic Imaging Report ---
Date and Time: 07/01/2017 Procedure: 1. Thoracic venogram 2. Temporary hemodialysis catheter placement logging tractor operator: Dr. 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 Blood pressure was monitored at 5 minute intervals. Additional Medications: None Fluoroscopy time: 5.6 minutes Dose-area Product: 558 cGycm2. Contrast used: 20 cc Isovue-300 Estimated blood loss: 20 cc Specimens: None Implants: 13 Cameroonian 20 cm Trialysis catheter Condition at completion of procedure: stable Disposition: Returned to floor DISCUSSION: Informed consent was obtained and documented in the medical record after discussion of risks and benefits. The patient was placed in the supine position on the angiographic table. Preliminary sonographic evaluation of the right and left cervical regions was performed, revealing chronic occlusions of the bilateral internal jugular veins. The right external jugular vein was noted to be patent, evidenced by compressibility. The right cervical region was then prepped and draped in the standard sterile fashion. 1% lidocaine was infiltrated into the skin and subcutaneous tissues for local anesthesia. Then under continuous sonographic guidance, a 21-gauge micropuncture needle was used to access the right external jugular vein. A permanent sonographic image was stored in the medical record. A 0.0 1 8-in. wire was advanced centrally to the level of the clavicular head, at which point resistance was encountered. The needle was exchanged for a 5 Cameroonian stiffened micropuncture sheath which was advanced over the wire to the level of the clavicular shaft. The wire and inner cannula were removed and thoracic venography was performed through the micropuncture sheath (see findings below). A 0.0 3 5-in. stiff hydrophilic wire was advanced through the micropuncture sheath and across the stenotic segment of the right external jugular vein and subsequently into the superior vena cava and finally the inferior vena cava. The micropuncture sheath was exchanged for a 5 Cameroonian angled catheter which was advanced into the inferior vena cava. The stiff hydrophilic wire was then exchanged for a 0.0 3 5-in. Amplatz Super Stiff wire which was advanced into the inferior vena cava. The catheter was removed and the tract was sequentially dilated under fluoroscopic guidance. Finally, a 13 Cameroonian, 20 cm triple-lumen hi flow central venous catheter was advanced over the wire under fluoroscopic guidance, to a depth of 19 cm. The wire was removed and the catheter tip was positioned in the upper right atrium. Each lumen was tested and showed adequate bidirectional flow. The 2 larger lumens were each packed with 2000 units of heparin. The smaller central lumen was flushed with sterile saline. The catheter was secured to the skin with monofilament nylon suture and a sterile dressing was applied. The patient tolerated the procedure well without immediate complication. FINDINGS: 1. 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 2. Patent right external jugular vein with short segment severe stenosis at the confluence with the subclavian vein. 3. Patent right subclavian, brachiocephalic vein, and superior vena cava. IMPRESSION: Successful thoracic venogram. Technically difficult, though ultimately successful placement of a 13 Cameroonian, 20 cm triple-lumen hi flow central venous catheter (Trialysis catheter) by a right external jugular approach under sonographic and fluoroscopic guidance. Signed by: Dr. Mehul Coker M.D. on 07/01/2017 4:13 PM
[2017-07-01] MEDS ORDERED: HEPARIN SOD (PORCINE) 1000 UNIT/ML SDV IV PRN (19:15)
[2017-07-01] MEDS ORDERED: SODIUM CHLORIDE 0.9% 250ML 500 ML IV PRN (19:15)
[2017-07-01] MEDS ORDERED: SODIUM CHLORIDE 0.9% 1000ML 2,000 ML IV PRN (19:15)
[2017-07-01] MEDS: TRAMADOL HCL 50 MG TAB PO PRN (23:53)
[2017-07-02] VITALS (8 sets, daily range): BP systolic 143–197; BP diastolic 66–79
[2017-07-02] MEDS: CLONIDINE HCL 0.2 MG TAB PO PRN ×2 (04:49→13:30)
[2017-07-02] MEDS: LORAZEPAM 0.5 MG TAB PO PRN (04:53)
[2017-07-02 05:55] LABS: ANION GAP 15.9 mmol/L (8-16); CALCIUM 8.8 mg/dL (8.4-10.2); CREATININE, SERUM 5.79 mg/dL (0.72-1.25); MAGNESIUM 1.7 MG/DL (1.3-2.1); PHOSPHORUS 5.8 MG/DL (2.3-4.7); POTASSIUM 4.9 mmol/L (3.5-5.1)
[2017-07-02] MEDS: INSULIN DETEMIR 100 UNIT/ML PEN SQ SCH (09:00)
[2017-07-02] MEDS: SODIUM BICARBONATE 650 MG TAB PO SCH ×3 (09:00→21:00)
[2017-07-02] MEDS: METOCLOPRAMIDE HCL 10 MG TAB PO SCH ×4 (09:01→22:00)
[2017-07-02] MEDS: SEVELAMER CARBONATE 800 MG TAB PO SCH ×3 (09:01→17:00)
[2017-07-02] MEDS: METOPROLOL TARTRATE 50 MG TAB PO SCH ×2 (09:01→17:00)
[2017-07-02] MEDS: NIFEDIPINE CR 30 MG TAB PO SCH ×2 (09:02→17:34)
[2017-07-02] MEDS: DIPHENHYDRAMINE HCL 25 MG CAP PO PRN ×2 (10:45→17:04)
[2017-07-02] MEDS: LABETALOL HCL 5 MG/ML 20ML VIAL IV PRN (20:34)
[2017-07-02] MEDS: CLONAZEPAM 0.5 MG TAB PO PRN (22:57)
[2017-07-03] VITALS (8 sets, daily range): BP systolic 138–194; BP diastolic 66–82
[2017-07-03] MEDS: LORAZEPAM 0.5 MG TAB PO PRN (03:08)
[2017-07-03] MEDS: CLONAZEPAM 0.5 MG TAB PO PRN (06:49)
--- NOTE | 2017-07-03 07:42 | Consultation ---
DATE OF CONSULTATION: July 03, 2017 The patient is a 62-year-old male with end-stage renal disease, who has a right upper arm arteriovenous fistula. Apparently, there had been difficulties with the fistula. He was admitted the hospital. He has a temporary catheter in place. The fistula is patent, but apparently flow has been poor during dialysis. PAST MEDICAL HISTORY: Significant for end-stage renal disease, hypertension, diabetes, peripheral vascular disease, previous left below knee amputation. ALLERGIES: CODEINE, LISINOPRIL AND MORPHINE. MEDICATIONS: Listed in the chart. FAMILY HISTORY: Noncontributory. SOCIAL HISTORY: The patient does not smoke cigarettes or drink alcohol. REVIEW OF SYSTEMS: As stated above, otherwise was negative. PHYSICAL EXAMINATION GENERAL: The patient is awake and alert, and in no distress. VITALS: Normal. HEENT: Reveals no scleral icterus. NECK: Has no masses. LUNGS: Equal breath sounds are clear bilaterally. CARDIAC: Regular rate and rhythm. ABDOMEN: Soft without tenderness. EXTREMITIES: Reveal right upper arm with a fistula in the upper arm with a positive thrills, although slightly pulsatile. There is a well-healed left below knee amputation. ASSESSMENT: A 62-year-old male with end-stage renal disease with poorly functioning left right upper arm arteriovenous fistula. He is to undergo fistulogram. Plan to view this, and if possible, may require revision of the right upper arm fistula. Thank you for asking me to see Mr. Aponte. Job#: [id number] NH
[2017-07-03] MEDS: SEVELAMER CARBONATE 800 MG TAB PO SCH ×3 (08:00→16:51)
[2017-07-03] MEDS: METOCLOPRAMIDE HCL 10 MG TAB PO SCH ×4 (08:36→20:59)
[2017-07-03] MEDS: NIFEDIPINE CR 30 MG TAB PO SCH ×2 (08:36→17:06)
[2017-07-03] MEDS: METOPROLOL TARTRATE 50 MG TAB PO SCH ×2 (08:36→17:06)
[2017-07-03] MEDS: INSULIN DETEMIR 100 UNIT/ML PEN SQ SCH (08:37)
[2017-07-03] MEDS: SODIUM BICARBONATE 650 MG TAB PO SCH ×3 (08:37→20:59)
[2017-07-03] MEDS ORDERED: SODIUM CHLORIDE 0.9% 500ML 500 ML ONE ×2 (10:48→11:08)
[2017-07-03] MEDS ORDERED: LIDOCAINE HCL 2% LOCAL 20 ML VIAL ONE (10:48)
[2017-07-03] MEDS ORDERED: FENTANYL CITRATE/PF 100MCG/2 ML INJ ONE (11:08)
[2017-07-03] MEDS ORDERED: IOPAMIDOL 370 MG/ML 200 ML INFUS..BTL INJ ONE (11:08)
[2017-07-03 11:16] LABS: ANION GAP 15.3 mmol/L (8-16); CALCIUM 8.6 mg/dL (8.4-10.2); CREATININE, SERUM 7.24 mg/dL (0.72-1.25); POTASSIUM 5.3 mmol/L (3.5-5.1)
[2017-07-03] MEDS ORDERED: MIDAZOLAM HCL 2 MG/2 ML VIAL ONE (11:35)
--- NOTE | 2017-07-03 11:45 | Progress Note ---
DATE: July 03, 2017 REASON FOR CONSULTATION: End-stage renal disease. SUBJECTIVE: No acute events overnight. OBJECTIVE GENERAL: Lying comfortably in bed, no acute distress. VITAL SIGNS: Temperature 97.9, heart rate 82, respiratory rate 20, blood pressure 194/82, O2 sat is 96% on room air. LUNGS: Clear to auscultation bilaterally. No wheezing or rales. HEART: Regular rate and rhythm, S1 and S2 normal. ABDOMEN: Soft, nontender, nondistended. EXTREMITIES: Positive for edema. LABS: Reviewed on electronic medical record, significant for hemoglobin of 9. BMP is currently pending. ASSESSMENT AND PLAN 1. End-stage renal disease. We will continue dialysis on a Monday, Monday, and Monday schedule. Plan for tunneled dialysis catheter placement today. Appreciate Dr. Murrell's input. The patient is adamant that he wants to go home. If unable to have AV fistula revision inpatient, we will arrange followup appointment with Dr. Murrell as an outpatient. Plan for tunneled dialysis catheter today. Refusing dialysis today, stating he will go to the dialysis unit tomorrow for dialysis; however, he is not scheduled to get dialysis in the unit tomorrow, he is Monday, Monday, and Monday patient as an outpatient. Explained that he needs to have dialysis done today. We will discuss once tunneled dialysis catheter is placed as well. 2. Accelerated hypertension. Continue metoprolol, nifedipine. 3. Metabolic acidosis. Continue sodium bicarbonate. 4. Anemia of chronic kidney disease. Continue EPO. Job#: [id number] KOFI
[2017-07-03] MEDS: EPOETIN ALFA 10000 UNIT/ML VIAL SC SCH (13:45)
[2017-07-03] MEDS ORDERED: LOPERAMIDE HCL 2 MG CAP PO PRN (15:15)
--- NOTE | 2017-07-03 15:50 | Consultation ---
DATE OF CONSULTATION: July 03, 2017 PSYCHIATRIC CONSULTATION Events noted. REASON FOR CONSULTATION: Evaluate the patient's anxiety. HISTORY OF PRESENT ILLNESS: The patient is a 62-year-old male admitted to the hospital for end-stage renal disease, on hemodialysis. Psychiatric consultation is called to evaluate the patient's mood. As per medical record, the patient has a history of diabetes, hypertension, osteomyelitis, below knee amputation. The patient was seen in the ER complaining of weakness. Upon evaluation today, the patient is found to be lying on the bed. He is alert, awake and oriented to situation. The patient states that he has been feeling anxious due to his medical health issues. He denies any depression. He denies feeling helpless and hopeless. He denies any suicidal ideation or homicidal ideation. He denies passive wish. The patient reports poor sleep and poor appetite. The patient is not combative or agitated. The patient is an obese white male. The patient called over the weekend for anxiety. He has been noncompliant with his meds. The patient claims that Klonopin help much. PAST PSYCHIATRIC HISTORY: The patient denies past psychiatric history. He denies past suicide attempt. He denies alcohol and drug use. FAMILY HISTORY: The patient denies any family history of psychiatric illness. SOCIAL HISTORY: The patient states he lives alone. MENTAL STATUS EXAMINATION GENERAL: The patient is an elderly male. He is obese. He is alert, awake and oriented to situation. His mood is anxious and irritable. He denies any suicide or homicidal ideation. He denies any hallucinations. Thought process is concrete. He does not elicit paranoia or delusional thinking. Insight and judgment are fair. Memory appears to be grossly intact. CURRENT MEDICATIONS: Metoprolol, nifedipine, Klonopin p.r.n., labetalol, Benadryl, clonidine p.r.n., tramadol p.r.n., Zofran p.r.n., acetaminophen, Epoetin, Imodium, Tylenol, sodium bicarb, Levemir, Reglan, insulin, sodium chloride. CURRENT LABS: WBC 5.77, RBC 3.16, hemoglobin 9, hematocrit 29, and platelets 196,000. Sodium 132, potassium 5.3, chloride 97, BUN 42, creatinine 7.24. ASSESSMENT: Adjustment disorder with mixed mood; general anxiety disorder. PLAN: Add Klonopin 0.5 mg p.o. b.i.d. Add Zoloft 25 mg p.o. daily. Continue with Klonopin 0.5 mg p.o. q.6 h. p.r.n. Monitor for mood. Recommend follow with outpatient psychiatry. Discussed with nursing staff. DICTATED BY BRITANY AVALOS Job#: [id number] RI
[2017-07-03] MEDS: LOPERAMIDE HCL 2 MG CAP PO PRN (16:48)
[2017-07-03] MEDS: SERTRALINE HCL 50 MG TAB PO SCH (17:05)
[2017-07-03] MEDS: CLONAZEPAM 0.5 MG TAB PO SCH (17:05)
[2017-07-04] VITALS (8 sets, daily range): BP systolic 156–195; BP diastolic 70–77
[2017-07-04] MEDS: DIPHENHYDRAMINE HCL 25 MG CAP PO PRN (02:24)
[2017-07-04 07:22] LABS: CALCIUM 8.5 mg/dL (8.4-10.2); CREATININE, SERUM 8.16 mg/dL (0.72-1.25); MAGNESIUM 1.8 MG/DL (1.3-2.1); PHOSPHORUS 7.5 MG/DL (2.3-4.7)
[2017-07-04] MEDS: METOCLOPRAMIDE HCL 10 MG TAB PO SCH ×4 (07:30→20:58)
[2017-07-04] MEDS: SEVELAMER CARBONATE 800 MG TAB PO SCH ×3 (08:00→16:18)
[2017-07-04] MEDS: SODIUM BICARBONATE 650 MG TAB PO SCH ×3 (09:00→20:58)
[2017-07-04] MEDS: CLONAZEPAM 0.5 MG TAB PO SCH ×2 (09:00→16:18)
[2017-07-04] MEDS: INSULIN DETEMIR 100 UNIT/ML PEN SQ SCH (09:00)
[2017-07-04] MEDS: LOPERAMIDE HCL 2 MG CAP PO PRN (10:31)
[2017-07-04] MEDS: ACETAMINOPHEN 325 MG TAB PO PRN (10:31)
[2017-07-04] MEDS ORDERED: MANNITOL 25% 12.5GM/50 ML VIAL IV PRN (11:45)
[2017-07-04] MEDS ORDERED: ALBUMIN HUMAN 12.5GM / 50ML IV PRN (11:45)
[2017-07-04] MEDS: METOPROLOL TARTRATE 50 MG TAB PO SCH ×3 (13:50→20:57)
[2017-07-04] MEDS: NIFEDIPINE CR 30 MG TAB PO SCH ×3 (13:59→20:58)
[2017-07-04] MEDS: SERTRALINE HCL 50 MG TAB PO SCH (13:59)
--- NOTE | 2017-07-04 16:32 | Progress Note ---
DATE: July 04, 2017 NEPHROLOGY PROGRESS NOTE REASON FOR CONSULTATION: End-stage renal disease. SUBJECTIVE: Continues to have shaking of bilateral upper extremities. Neurology currently evaluating the patient. OBJECTIVE GENERAL: Lying comfortably in bed, no acute distress. VITAL SIGNS: Temperature 98.2, heart rate 94, respiratory rate 20, blood pressure 195/74, O2 sat is 98% on room air. HEENT: NC/AT, EOMI. LUNGS: Clear to auscultation bilaterally. No wheezing, no rales. HEART: Regular rhythm. S1 and S2 normal. ABDOMEN: Soft, nontender, nondistended. EXTREMITIES: Positive for edema. LABS: Were reviewed in electronic medical record. Significant for a phosphorus of 7.5, potassium of 6, sodium of 133, bicarb of 22, BUN of 55 and creatinine of 8.1. IMAGING: Was reviewed in electronic medical record. ASSESSMENT AND PLAN 1. End-stage renal disease. Patient dialyzed today. Keep blood flow 350 mL per minute. 2. Will perform dialysis again tomorrow since Neurology is currently evaluating the patient. Unlikely that patient will be discharged today. 3. Metabolic acidosis. Continue sodium bicarbonate. 4. Accelerated hypertension. Continue antihypertensives. 5. Anemia of chronic kidney disease. Continue Epogen. 6. Tremors. Appreciate Neurology input. Job#: [id number] EV
--- NOTE | 2017-07-04 19:10 | Consultation ---
DATE OF CONSULTATION: July 04, 2017 NEUROLOGIC CONSULTATION HISTORY OF PRESENT ILLNESS: Mr. Aponte is a 62-year-old, [id number] man with past medical history significant for hypertension, hyperlipidemia, diabetes mellitus, coronary artery disease, atrial fibrillation, COPD, end stage renal disease on hemodialysis Mondays, Wednesdays and Fridays and recently diagnosed anxiety disorder, who presented to [facility] on June 29, 2017, with generalized weakness. As stated above, the patient presented to the emergency center of [facility] on June 29, 2017 because he was "not feeling well." The patient further described the sensation of not feeling well as generalized weakness. While in the emergency center, laboratory data was ordered and was significant for an elevated potassium of 6.2. Other significant findings included a BUN of 69 and creatinine of 8.88. His hemoglobin was 9.3 which was increased from prior hemoglobin measurements. Mr. Aponte was admitted to [facility] for treatment of hyperkalemia. He received intravenous calcium gluconate, intravenous insulin, intravenous D50 and bicarbonate. Treatment with Kayexalate was recommended, but refused by the patient. Despite treatment with the aforementioned medications, the patient's potassium remained elevated the following day (7.0). Mr. Aponte received hemodialysis the following day to correct his hyperkalemia. As he was undergoing dialysis, some difficulty with the patient's right arm AV fistula was noted. Temporary access for hemodialysis was placed. Over the following 2 to 3 days, the dysfunction of the patient's arteriovenous fistula was evaluated and treated by interventional radiology. While in the hospital, the patient reported involuntary shaking of his hands and arms to his nurses, prompting a neurology consultation. The patient reports the shaking of the hands and arms has been present for the past 3 to 4 days. However, per the patient's nurse, the shaking has been present for approximately one day. Mr. Aponte reports the shaking is constant, present both at rest and with action. Both hands are equally affected. Nothing worsens the shaking. Nothing improves the shaking. Mr. Aponte reports the shaking began after receiving 2 to 3 doses of fentanyl while in the hospital. The patient does not endorse shaking of the hands and arms prior to his current admission. The patient does not endorse loss of consciousness, diminished responsiveness, tongue biting, bladder or bowel incontinence, slowness of movements, or hypophonia. The patient is wheelchair-bound, so he cannot report whether or not his gait has been recently affected. The patient does not report changes in smell. He does not endorse visual or auditory hallucinations. REVIEW OF SYSTEMS: Not feeling well, generalized weakness, involuntary movements of both hands and arms. Otherwise, the 12-point review of systems is negative. PAST MEDICAL HISTORY: Hypertension, hyperlipidemia, diabetes mellitus, coronary artery disease, atrial fibrillation, COPD, end stage renal disease on hemodialysis Mondays, Wednesdays and Fridays, gastroesophageal reflux disease, peptic ulcer disease, anxiety disorder, hemorrhoids, anemia secondary to end stage renal disease. PAST SURGICAL HISTORY: Right AV fistula placement, cholecystectomy, multiple foot surgeries, right below the knee amputation. PAST HOSPITALIZATIONS: For surgeries and procedures as listed, hypertension, renal failure. FAMILY HISTORY: The patient's paternal and maternal grandparents are . Their medical histories are unknown. The patient's father is . He had a history of coronary artery disease. The patient's mother is . She had a history of an unknown cancer. The patient has one sister who is alive and healthy. The patient has no children. SOCIAL HISTORY: Mr. Aponte is single. He does have a college degree. The patient is retired. The patient does report a prior history of tobacco use. He quit smoking cigarettes in 2003. The patient does not endorse alcohol use. He does not report recreational drug use. HOME MEDICATIONS 1. Aspirin 81 mg by mouth daily. 2. Clonidine 0.1 mg by mouth as needed. 3. Levemir 17 units subcutaneously daily. 4. Reglan 5 mg by mouth every 6 hours as needed. 5. Metoprolol 25 mg by mouth as needed. 6. Nifedipine 60 mg by mouth twice daily. 7. Nitroglycerin 0.4 mg sublingually as needed. ALLERGIES: CODEINE AND MORPHINE CAUSE SHORTNESS OF BREATH. LISINOPRIL CAUSES HYPERKALEMIA. NO KNOWN FOOD ALLERGIES. NO KNOWN ALLERGY TO LATEX. NO KNOWN ALLERGIES TO IODINE OR OTHER CONTRAST MATERIALS. PHYSICAL EXAMINATION VITAL SIGNS: Height 71 inches, weight 235 lbs. BMI 32.8 kg per meter squared. Blood pressure 195/74 mmHg. Pulse 74 beats per minute. Respiratory rate 18 breaths per minute. Oxygen saturation 98% on room air. GENERAL: The patient is awake and alert, mildly distressed. Obese. HEENT: Normocephalic, atraumatic. Pupils are equal, round and reactive to light. Moist mucous membranes. NECK: Supple. No appreciable thyromegaly. No appreciable carotid bruits. CARDIOVASCULAR: S1, S2 regular rate and rhythm. No murmurs, rubs or gallops. RESPIRATORY: Clear to auscultation bilaterally. No wheezes, rhonchi, or rales. EXTREMITIES: The skin is warm and dry. No clubbing, cyanosis or edema. The posterior tibial and dorsalis pedis pulses are trace and symmetric on the left. Right BKA. SKIN: No rashes. Venous stasis ulcerations over the left foreleg. The left foot is wrapped in gauze. NEUROLOGIC MEMORY/ATTENTION: The patient is awake and alert, oriented to person, place, time and situation. CRANIAL NERVES: Cranial nerve I: Not tested. Cranial nerves II, III, IV, and : Pupils are equal and round, react briskly to light (from 4 mm to 2 mm). Extraocular movements are intact, no nystagmus. Cranial nerve V: Sensation to light touch and pinprick is intact in the bilateral V1 through V3 distributions. Strength of the temporalis and masseter muscles is within normal limits. Cranial nerve VII: The face is symmetric as are all facial movements. Strength is within normal limits. Cranial nerve VIII: Hearing is diminished to finger rub on the right. Hearing is intact to finger rub on the left. Cranial nerves IX and X: The soft palate elevates equally and symmetrically. Cranial nerve XI: Normal strength of the bilateral sternocleidomastoid and trapezius muscles. Cranial nerve XII: The tongue protrudes midline and moves symmetrically from side to side. STRENGTH: Bulk is normal. Strength is 5/5 in the bilateral deltoids, biceps, triceps, wrist flexors and extensors, finger flexors and extensors, intrinsic hand muscles, hip flexors, knee flexors and extensors, left ankle dorsiflexion and plantarflexion and left intrinsic foot muscles. Tone is normal. DTRs: Deep tendon reflexes are 1+ and symmetric at the triceps, biceps, brachial radialis, and patellas. The Achilles reflex is absent on the left. Plantar responses are flexor on the left. Absent clonus. SENSATION: Sensation is intact to light touch and pinprick in both arms and legs. CEREBELLAR: Grutjg-gisa-ecpmrr and heel-trejo movements are intact without dysmetria. The patient has a tremor affecting both hands and both arms of varying frequency and amplitude. The tremor lessens as the patient touches his nose with hjoeuu-elbg-xfvalm maneuvers. The tremor worsens drastically when touching the examiner's finger. GAIT: Unable to assess secondary to the patient being nonambulatory due to a right wjiul-vrf-gdmi amputation. SPEECH: Spontaneous speech is normal without appreciable dysarthria or aphasia. Repetition is intact. INVOLUNTARY MOVEMENTS: The patient has a tremor affecting both hands and both arms and intermittently in the left foot. The tremor is present with action and at rest. The tremor waxes and wanes in both frequency and amplitude multiple times during the encounter. The tremor is distractible. PRONATOR DRIFT: None. LABORATORY DATA: Sodium 133, potassium 6.0, chloride 99, carbon dioxide 22, anion gap 18.0, BUN 55, creatinine 8.16, estimated GFR 7. HDV-sn-bbqzrpqtik ratio is 7. Glucose 132, calcium 8.5, phosphorus 7.5, magnesium 1.8. ASSESSMENT AND PLAN: Mr. Aponte is a 62-year-old lxkfx-mzgc-vgliylrz man with multiple medical comorbidities, admitted to [facility] on June 29, 2017, with hyperkalemia. Over the past few days, the patient has received evaluation and treatment through interventional radiology for right AV fistula dysfunction. Mr. Aponte has received his scheduled hemodialysis while an inpatient. During this hospitalization, the patient has experienced shaking of both hands and both arms. Per the patient, the shaking began 3 to 4 days ago after receiving 2 or 3 doses of fentanyl while a patient. According to the patient's nurse, the shaking began today, 07/04/2017. On neurological examination, the patient is observed to have a tremor affecting both hands and both arms. The tremor is present at rest and with action. The tremor varies widely in frequency and amplitude as detailed in the patient's neurological examination. The patient's laboratory data and other diagnostic studies have been reviewed and are documented above. Based on the history, findings on the patient's neurological examination, and observations made during this encounter, Mr. Petersen tremor appears to be volitional. There is no evidence of an underlying neurological disorder at this time. No further evaluation or treatment is needed. Thank you for this consultation. Please contact me with any further questions or concerns regarding this patient. Time spent: 70 minutes. Job#: [id number] BOSSMAN ORTIZ
[2017-07-05] VITALS: BP 191/75
[2017-07-05] MEDS: LABETALOL HCL 5 MG/ML 20ML VIAL IV PRN (01:18)
[2017-07-05] MEDS: CLONAZEPAM 0.5 MG TAB PO PRN (01:43)
[2017-07-05 04:50] VITALS: BP 177/74
[2017-07-05 05:23] VITALS: BP 177/74
[2017-07-05 07:35] VITALS: BP 177/74
[2017-07-05 07:35] LABS: CALCIUM 8.5 mg/dL (8.4-10.2); CREATININE, SERUM 6.64 mg/dL (0.72-1.25); MAGNESIUM 1.7 MG/DL (1.3-2.1); PHOSPHORUS 6.5 MG/DL (2.3-4.7)
[2017-07-05] MEDS: ONDANSETRON HCL INJ 2 MG/ML VIAL IV PRN (07:47)
[2017-07-05] MEDS: SEVELAMER CARBONATE 800 MG TAB PO SCH ×2 (08:00→12:00)
[2017-07-05 08:15] VITALS: BP 186/66
[2017-07-05] MEDS: INSULIN DETEMIR 100 UNIT/ML PEN SQ SCH (08:52)
[2017-07-05] MEDS: SODIUM BICARBONATE 650 MG TAB PO SCH (09:00)
[2017-07-05] MEDS: CLONAZEPAM 0.5 MG TAB PO SCH (09:02)
[2017-07-05] MEDS: NIFEDIPINE CR 30 MG TAB PO SCH (09:03)
[2017-07-05] MEDS: METOPROLOL TARTRATE 50 MG TAB PO SCH (09:03)
[2017-07-05] MEDS: METOCLOPRAMIDE HCL 10 MG TAB PO SCH ×2 (09:04→11:07)
[2017-07-05] MEDS: SERTRALINE HCL 50 MG TAB PO SCH (10:00)
[2017-07-05 12:25] VITALS: BP 176/77
--- NOTE | 2017-07-06 14:04 | Diagnostic Imaging Report ---
PROCEDURE:Central venogram. Conversion of temporary to tunneled central venous catheter. COMPARISON:None. INDICATIONS: Catheter malfunction. COMPLICATIONS: None. MEDICATIONS: None. BLOOD LOSS: Less than 5 cc. PROCEDURE: The existing dialysis catheter was noted. The existing catheter and surrounding skin were prepped and draped in usual sterile fashion. A 0.035 inch wire was advanced through the catheter. The catheter was removed. The skin and wire were prepped again. A vascular sheath was advanced over the wire. A digital subtracted central venogram was performed. The right internal jugular vein was stenotic and minimally opacified. The right external jugular vein was patent. Lidocaine was injected into the subcutaneous tissues on the right upper chest wall. Skin neck was made with a #11 blade. The catheter was tunneled to the vascular access site. A peel-away sheath was advanced over the wire. The wire and stylette were removed. The catheter was placed within the peel-away sheath. The peel-away sheath was removed. The catheter tip was positioned within the right atrium. The catheter ports demonstrated function with aspiration and flush of sterile saline. The catheter was secured to the skin with 3-0 Ethilon suture. The venous access site was closed with Dermabond. Sterile dressings were applied. The patient tolerated the procedure well. There no immediate complications. Patient was transferred to the post procedure area in stable unchanged condition from further monitoring. CONCLUSION: Successful conversion of the right external jugular temporary central venous catheter for a tunneled central venous hemodialysis catheter. 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 Dictated by: Mason Singer M.D. on 07/06/2017 at 14:04 Electronically approved by: Maosn Singer M.D. on 07/06/2017 at 14:04
== END 2017-07-05 13:09 | disposition home or self-care (01) | DRG 673 ==
LOC: ER 11:30 → ERHOLD 14:23 → MED/SURG 17:21
PROVIDERS: ADMIT Internal Medicine; ATTEND Internal Medicine
PROC: 5A1D70Z Performance of Urinary Filtration, Intermittent, Less than 6 Hours Per Day (ICD-10-PCS; principal; 2017-06-29)
PROC: 30233N1 Transfusion of Nonautologous Red Blood Cells into Peripheral Vein, Percutaneous Approach (ICD-10-PCS; principal; 2017-06-29)
PROC: 03773ZZ Dilation of Right Brachial Artery, Percutaneous Approach (ICD-10-PCS; 2017-06-30)
PROC: B51W1ZZ Fluoroscopy of Dialysis Shunt/Fistula using Low Osmolar Contrast (ICD-10-PCS; 2017-06-30)
PROC: 03C73ZZ Extirpation of Matter from Right Brachial Artery, Percutaneous Approach (ICD-10-PCS; 2017-06-30)
PROC: 3E03317 Introduction of Other Thrombolytic into Peripheral Vein, Percutaneous Approach (ICD-10-PCS; 2017-06-30)
PROC: 05793ZZ Dilation of Right Brachial Vein, Percutaneous Approach (ICD-10-PCS; 2017-06-30)
PROC: 05C93ZZ Extirpation of Matter from Right Brachial Vein, Percutaneous Approach (ICD-10-PCS; 2017-06-30)
PROC: B5191ZZ Fluoroscopy of Inferior Vena Cava using Low Osmolar Contrast (ICD-10-PCS; 2017-07-01)
PROC: 02H633Z Insertion of Infusion Device into Right Atrium, Percutaneous Approach (ICD-10-PCS; 2017-07-01)
PROC: 02H633Z Insertion of Infusion Device into Right Atrium, Percutaneous Approach (ICD-10-PCS; 2017-07-03)
PROC: 0JH63XZ Insertion of Tunneled Vascular Access Device into Chest Subcutaneous Tissue and Fascia, Percutaneous Approach (ICD-10-PCS; 2017-07-03)
DX: I12.0 Hypertensive chronic kidney disease with stage 5 chronic kidney disease or end stage renal disease (principal); N18.6 End stage renal disease; E87.2 Acidosis; I82.891 Chronic embolism and thrombosis of other specified veins; T82.868A Thrombosis due to vascular prosthetic devices, implants and grafts, initial encounter; I87.1 Compression of vein; E11.22 Type 2 diabetes mellitus with diabetic chronic kidney disease; I48.91 Unspecified atrial fibrillation; E86.0 Dehydration; E87.5 Hyperkalemia; D63.1 Anemia in chronic kidney disease; Z99.2 Dependence on renal dialysis; Z79.4 Long term (current) use of insulin; Z79.82 Long term (current) use of aspirin; Y83.2 Surgical operation with anastomosis, bypass or graft as the cause of abnormal reaction of the patient, or of later complication, without mention of misadventure at the time of the procedure; E78.5 Hyperlipidemia, unspecified; I25.10 Atherosclerotic heart disease of native coronary artery without angina pectoris; J44.9 Chronic obstructive pulmonary disease, unspecified; E66.9 Obesity, unspecified; Z68.32 Body mass index [BMI] 32.0-32.9, adult; F43.23 Adjustment disorder with mixed anxiety and depressed mood; F41.1 Generalized anxiety disorder; K21.9 Gastro-esophageal reflux disease without esophagitis; Z89.511 Acquired absence of right leg below knee; R25.1 Tremor, unspecified; I73.9 Peripheral vascular disease, unspecified; L29.9 Pruritus, unspecified; Z91.14 Patient's other noncompliance with medication regimen; E83.39 Other disorders of phosphorus metabolism; Z88.5 Allergy status to narcotic agent; Z88.8 Allergy status to other drugs, medicaments and biological substances
CPT/HCPCS: 36415; 36556; 36565; 36580; 74470; 75820; 75827; 76080; 76937; 77001; 80048; 80053; 81001; 82948; 83735; 84100; 85025; 85610; 85730; 86704; 86705; 86707; 86850; 86900; 86920; 87340; 90962; C1751; C1766; C1769; J0360; J0610; J1644; J2001; J2250; J2405; J2997; J7030; J7040; J7050; J7799; P9016; Q4081; Q9967

== ENCOUNTER 2017-08-11 21:26 | Observation (INO) | payer OTHER ==
[~2017-08-11] VITALS: Ht 180.3 cm; Wt 107.7 kg
[~2017-08-11 21:26] MED LIST changes: -NITROGLYCERIN0.4 MG; +NITROGLYCERIN0.4 MG SL
--- OUTSIDE RECORDS SUMMARY | 2017-08-11 21:30 | XMS REPORT | Continuity of Care Document ---
Author Author [facility] Organization [facility] Address [address] [place] [address] Phone Unavailable Care Team Providers Care Auction Assistant Name Role Phone NONSTAFF PCP Unavailable Insurance Providers Guarantor Nishant Aponte Address [address] [place] [address] Email PTDECLINED [facility] [employer] Policy Number [id number] Subscriber's Name Nishant Schofield Salvatore Relationship 18 Self / Same As Patient Group Number [id number] Group Name RETIRED Effective Date 17 Advance Directives Directive Response Recorded Date/Time Does the patient have an advance directive? Yes 06/29/17 6:38pm If yes, is advance directive on file with [facility]? No 06/29/17 6:38pm If not on file with [facility] will patient provide a copy? Yes 06/29/17 6:38pm Do you have a Directive to Physician? Yes 06/29/17 1:12pm Do you have a Medical Power of [place] Process? Yes 06/29/17 1:12pm Do you have an out of hospital Do Not Resuscitate Order? No 06/29/17 1:12pm Do you have any special needs we should be aware of? No 06/29/17 1:12pm Do you have a support person here with you today? No 06/29/17 1:12pm Did patient receive Notice of Privacy Practices? Yes 06/29/17 1:12pm Did patient receive patient rights and responsibilities? Yes 06/29/17 1:12pm Problems Medical Problem Onset Date Status Bigeminy Unknown Chest pain Unknown ESRD on hemodialysis Unknown Hyperkalemia Unknown Medications Current Home Medications Medication Dose Units Route Directions Days Qty Instructions Start Date Aspirin (Aspir 81) 81 Mg Tablet.dr 81 Mg Oral Daily Clonidine Hcl 0.1 Mg Tablet 1 Tab Oral As Needed as needed for High Blood Pressure 60 Tab Insulin Detemir (Levemir 3ML Flexpen*) 100 Units/Ml Inj 17 Units Subcutaneously Daily Metoclopramide Hcl (Reglan) 5 Mg Tablet 5 Mg Oral Every 6 Hours as needed Metoprolol Tartrate 25 Mg Tablet 25 Mg Oral As Needed Nifedipine (Nifedipine Er) 30 Mg Tab.er.24 60 Mg Oral Twice A Day Nitroglycerin 0.4 Mg Tab.subl 0.4 Mg Route As Needed Past Home Medications Medication Directions Ordered Status Calcitriol 0.25 Mcg Capsule, 0.25 Mcg Oral Mon, Mon, Mon Discontinued Doxycycline Hyclate 100 Mg Tablet, Discontinued Esomeprazole Magnesium (Nexium) 40 Mg Capsule.dr, 4140 Mg Oral Daily Discontinued Fludrocortisone Acetate 0.1 Mg Tab, 0.1 Mg Oral Daily Discontinued Folic Acid 0.4 Mg Tablet, 0.4 Mg Oral Daily Discontinued Isosorbide Mononitrate (Imdur) 30 Mg Tabcr, 30 Mg Oral Daily Discontinued Magnesium Oxide (Magox 400) 400 Mg Tablet, 400 Mg Oral Daily Discontinued Meperidine Hcl 50 Mg Tablet, 25 Mg Oral Twice A Day as needed Discontinued Metoclopramide Hcl (Reglan) 10 Mg Tablet, 10 Mg Oral Three Times A Day Discontinued Pravastatin Sodium 40 Mg Tablet, 40 Mg Oral Daily Discontinued Simvastatin 20 Mg Tablet, 20 Mg Oral Bedtime Discontinued Sodium Bicarbonate 650 Mg Tablet, 1300 Mg Oral Three Times A Day Discontinued Xyvox , 650 Mg Oral Daily Discontinued Social History Social History Problem Response Recorded Date/Time Onset Date Status Hx Psychiatric Problems No 06/29/2017 6:38pm Not Applicable Not Applicable Hx Eating Disorder No 09/10/2016 1:30am Not Applicable Not Applicable Hx Substance Use Disorder No 09/10/2016 1:30am Not Applicable Not Applicable Hx Depression No 09/10/2016 1:30am Not Applicable Not Applicable Hx Alcohol Use No 09/10/2016 1:30am Not Applicable Not Applicable Hx Substance Use Treatment No 09/10/2016 1:30am Not Applicable Not Applicable Hx Physical Abuse No 09/10/2016 1:30am Not Applicable Not Applicable Hospital Discharge Instructions No hospital discharge instruction information available. Plan of Care Discharge Date 07/05/17 1:09pm Disposition HOME HEALTH SERVICE Instructions/Education Provided Hyperkalemia Kidney Failure Prescriptions See Medication Section Referrals DAPHNEY MONROY MD (Psychiatry) Entered Date: 07/03/2017 3:49pm Address: [address] [facility] [address] [place] [address] PRERNA MCMULLEN MD (Nephrology) Entered Date: 07/03/2017 3:49pm Address: [facility] [facility] [address] [place] [address] SOFÍA AGGARWAL MD (Internal Medicine) Entered Date: 07/03/2017 3:49pm Address: [facility] [facility] [address] [place], [place] [id number] CHUCK RYAN MD (Surgery) Order Date: 1-2 Weeks Entered Date: 07/05/2017 10:22am Address: [address] [place] [address] Note: FOLLOW UP FOR FISTULA REPAIR Additional Instructions/Education FOLLOW UP AT [facility] ON SCHEDULED DAYS. Functional Status Query Response Date Recorded Ambulation Ability Moderate Assistance June 29, 2017 6:30pm Toileting Ability Maximum Assistance July 05, 2017 8:52am Allergies, Adverse Reactions, Alerts Allergen Type Severity Reaction Status Last Updated Lisinopril Allergy Unknown Active 06/29/17 Morphine Allergy Unknown Active 09/09/16 Codeine Allergy Unknown Active 09/09/16 Hydromorphone Allergy Severe Active 07/04/17 Immunizations No immunization information available. Vital Signs Acute Vital Signs Vital Response Date/Time Temperature (Fahrenheit) 97.4 degrees F (97.6 - 99.5) 07/05/2017 12:25pm Pulse Pulse Rate (adult) 75 bpm (60 - 90) 07/05/2017 12:25pm Respiratory Rate 20 bpm (12 - 24) 07/05/2017 12:25pm Blood Pressure 176/77 mm Hg 07/05/2017 12:25pm Height 5 ft 11 in 06/29/2017 11:40am Weight 235 lb 06/29/2017 11:40am Body Mass Index 32.8 kg/m^2 06/29/2017 6:38pm Results Laboratory Results Test Name Result Units Flags Reference Collection Date/Time Result Date/ Time Comments Hemoglobin A1c Percent 6.7 % 4.0-7.0 09/10/2016 5:40am 09/10/2016 7: 33am Triglycerides Level 113 MG/DL 0-149 09/10/2016 5:40am 09/10/2016 6: 40am Cholesterol Level 149 MD/DL 0-199 09/10/2016 5:40am 09/10/2016 6:40am Less than 200 mg/dL Low Risk 201 - 239 mg/dL Borderline Risk 240 mg/dl and greater High Risk LDL Cholesterol 91 MG/DL 60-130 09/10/2016 5:40am 09/10/2016 6:40am HDL Cholesterol 35 MG/DL L 40-60 09/10/2016 5:40am 09/10/2016 6:40am Cholesterol/HDL Ratio 4.3 3.9-4.7 09/10/2016 5:40am 09/10/2016 6: 40am B-Type Natriuretic Peptide 111.6 pg/mL H 0-100 09/09/2016 5:49pm 2016 6:44pm Creatine Kinase 35 IU/L 30-200 09/10/2016 5:40am 09/10/2016 6:40am Creatine Kinase MB 0.50 ng/mL 0.00-5.00 09/10/2016 5:40am 09/10/2016 6: 40am Troponin I 0.023 ng/mL 0-0.300 09/10/2016 5:40am 09/10/2016 6:40am Thyroid Stimulating Hormone (TSH) 0.166 uIU/mL L 0.350-4.940 09/10/2016 5 :40am 09/10/2016 7:57am White Blood Count 5.77 x10e3/uL 4.8-10.8 07/01/2017 7:14am 07/01/2017 7 :33am Red Blood Count 3.16 x10e6/uL L 4.3-5.7 07/01/2017 7:07/01/2017 7: 33am Hemoglobin 9.0 g/dL L 14.0-18.0 07/01/2017 7:07/01/2017 7:33am Hematocrit 29.0 % L 38.2-49.6 07/01/2017 7:07/01/2017 7:33am Mean Corpuscular Volume 91.8 fL 81-99 07/01/2017 7:07/01/2017 7: 33am Mean Corpuscular Hemoglobin 28.5 pg 28-32 07/01/2017 7:07/01/2017 7:33am Mean Corpuscular Hemoglobin Concent 31.0 g/dL 31-35 07/01/2017 7:07/01/2017 7:33am Red Cell Distribution Width 16.5 % H 11.7-14.4 07/01/2017 7:2017 7:33am Platelet Count 196 x10e3/uL 140-360 07/01/2017 7:07/01/2017 7: 33am Neutrophils (%) (Auto) 79.1 % 38.7-80.0 07/01/2017 7:07/01/2017 7: 33am Lymphocytes (%) (Auto) 10.7 % L 18.0-39.1 07/01/2017 7:07/01/2017 7 :33am Monocytes (%) (Auto) 6.8 % 4.4-11.3 07/01/2017 7:07/01/2017 7: 33am Eosinophils (%) (Auto) 2.1 % 0.0-6.0 07/01/2017 7:07/01/2017 7: 33am Basophils (%) (Auto) 1.0 % 0.0-1.0 07/01/2017 7:07/01/2017 7:33am IM GRANULOCYTES % 0.3 % 0.0-1.0 07/01/2017 7:07/01/2017 7:33am Neutrophils # (Auto) 4.6 2.1-6.9 07/01/2017 7:07/01/2017 7:33am Lymphocytes # (Auto) 0.6 L 1.0-3.2 07/01/2017 7:14am 07/01/2017 7: 33am Monocytes # (Auto) 0.4 0.2-0.8 07/01/2017 7:14am 07/01/2017 7:33am Eosinophils # (Auto) 0.1 0.0-0.4 07/01/2017 7:14am 07/01/2017 7:33am Basophils # (Auto) 0.1 0.0-0.1 07/01/2017 7:14am 07/01/2017 7:33am Absolute Immature Granulocyte (auto 0.02 x10e3/uL 0-0.1 07/01/2017 7: 14am 07/01/2017 7:33am Prothrombin Time 15.3 seconds H 11.9-14.5 07/01/2017 10:35am 07/01/2017 10:57am Prothromb Time International Ratio 1.31 07/01/2017 10:35am 2017 10:57am Oral Anticoagulant Therapy INR Values: 1. Low Intensity Therapy 1.5 - 2.0 2. Moderate Intensity Therapy 2.0 - 3.0 3. High Intensity Therapy(1) 2.5 - 3.5 4. High Intensity Therapy(2) 3.0 - 4.0 5. Panic Value INR > 5.0 Activated Partial Thromboplast Time 30.9 seconds 23.8-35.5 07/01/2017 10 :35am 07/01/2017 10:57am Urine Color YELLOW YELLOW 06/29/2017 3:30pm 06/29/2017 4:58pm Urine Clarity SL CLOUDY H CLEAR 06/29/2017 3:30pm 06/29/2017 4:58pm Urine Specific [place] 1.020 1.010-1.025 06/29/2017 3:30pm 2017 4:58pm Urine pH 8 H 5 - 7 06/29/2017 3:30pm 06/29/2017 4:58pm Urine Leukocyte Esterase NEGATIVE NEGATIVE 06/29/2017 3:30pm 2017 4:58pm Urine Nitrite NEGATIVE NEGATIVE 06/29/2017 3:30pm 06/29/2017 4:58pm Urine Protein 2+ H NEGATIVE 06/29/2017 3:30pm 06/29/2017 4:58pm Urine Glucose (UA) 2+ H NEGATIVE 06/29/2017 3:30pm 06/29/2017 4:58pm Urine Ketones NEGATIVE NEGATIVE 06/29/2017 3:30pm 06/29/2017 4:58pm Urine Urobilinogen 0.2 mg/dL 0.2 - 1 06/29/2017 3:30pm 06/29/2017 4: 58pm Urine Bilirubin NEGATIVE NEGATIVE 06/29/2017 3:30pm 06/29/2017 4: 58pm Urine Blood TRACE H NEGATIVE 06/29/2017 3:30pm 06/29/2017 4:58pm Urine WBC NONE /HPF 0-5 06/29/2017 3:30pm 06/29/2017 5:07pm Urine RBC 0-5 /HPF 0-5 06/29/2017 3:30pm 06/29/2017 5:07pm Urine Bacteria NONE /HPF NONE 06/29/2017 3:30pm 06/29/2017 5:07pm Urine Epithelial Cells MODERATE /LPF NONE 06/29/2017 3:30pm 06/29/2017 5:07pm Urine Renal Epithelial Cells MODERATE H NONE 06/29/2017 3:30pm 2017 5:07pm Sodium Level 136 mmol/L 136-145 07/05/2017 6:50am 07/05/2017 7:35am Potassium Level 5.0 mmol/L 3.5-5.1 07/05/2017 6:50am 07/05/2017 7:35am Chloride Level 100 mmol/L 98-107 07/05/2017 6:50am 07/05/2017 7:35am Carbon Dioxide Level 26 mmol/L 22-29 07/05/2017 6:50am 07/05/2017 7: 35am Anion Gap 15.0 mmol/L 8-16 07/05/2017 6:50am 07/05/2017 7:35am Blood Urea Nitrogen 40 mg/dL H 7-26 07/05/2017 6:50am 07/05/2017 7:35am Creatinine 6.64 mg/dL H 0.72-1.25 07/05/2017 6:50am 07/05/2017 7:35am BUN/Creatinine Ratio 6 6-25 07/05/2017 6:50am 07/05/2017 7:35am Estimat Glomerular Filtration Rate 8 ML/MIN L 60- 07/05/2017 6:50am 01/2018 7:35am Ranges were taken from the National Kidney Disease Education Program and the National Kid[employer] Foundation literature. Reference ranges: 60 or greater: Normal 16-59 (for 3 consecutive months): Chronic kidney disease 15 or less: Kidney failure Glucose Level 101 mg/dL 74-118 07/05/2017 6:50am 07/05/2017 7:35am Calcium Level 8.5 mg/dL 8.4-10.2 07/05/2017 6:50am 07/05/2017 7:35am Bedside Glucose 113 mg/dL 70-120 07/05/2017 11:50am 07/05/2017 12:04pm Meter ID: [id number] Phosphorus Level 6.5 MG/DL H 2.3-4.7 07/05/2017 6:50am 07/05/2017 7: 35am Magnesium Level 1.7 MG/DL 1.3-2.1 07/05/2017 6:50am 07/05/2017 7:35am Total Bilirubin 0.4 mg/dL 0.2-1.2 06/30/2017 6:30am 06/30/2017 7:50am Aspartate Amino Transf (AST/SGOT) 9 IU/L 5-34 06/30/2017 6:30am 2017 7:50am Alanine Aminotransferase (ALT/SGPT) 10 IU/L 0-55 06/30/2017 6:30am 08/2017 7:50am Total Protein 7.0 g/dL 6.5-8.1 06/30/2017 6:30am 06/30/2017 7:50am Albumin 2.7 g/dL L 3.5-5.0 06/30/2017 6:30am 06/30/2017 7:50am Globulin 4.3 g/dL H 2.3-3.5 06/30/2017 6:30am 06/30/2017 7:50am Albumin/Globulin Ratio 0.6 L 0.8-2.0 06/30/2017 6:30am 06/30/2017 7: 50am Alkaline Phosphatase 63 IU/L 40-150 06/30/2017 6:30am 06/30/2017 7: 50am Hepatitis Be Antibody Negative Negative 06/30/2017 11:08am 2017 11:22am Performed at: - [facility] [id number] [place], [place] [id number] Product Safety Coordinator: Pedro Braun MD, Phone: [phone] Hepatitis B Core Total Antibody Negative Negative 06/30/2017 11:08am 07/01/2017 7:48am Hepatitis B Surface Antigen Negative Negative 06/30/2017 11:08am 09/2017 7:48am Hepatitis B Core IgM Antibody Negative Negative 06/30/2017 11:08am 7:48am Performed at: [facility] [id number] Product Safety Coordinator: Adin Dorman MD, Phone: [phone] Procedures Procedure Status Date Provider(s) Ultrasound guidance for vascular access Active 07/01/17 SOFÍA AGGARWAL MD Encounters Encounter Location Arrival/Admit Date Discharge/Depart Date Attending Provider Discharged Inpatient [facility] 06/29/17 2:23pm 07/05/17 1:09pm SOFÍA AGGARWAL MD Discharged Inpatient (obs) [facility] 09/09/16 11:03pm 11:54am EUFEMIA LOVE MD
--- OUTSIDE RECORDS SUMMARY | 2017-08-11 21:30 | XMS REPORT | Clinical Summary ---
Author Author [facility] Address Unknown Phone Unavailable Care Team Providers Care Warp Yarn Sorter Name Role Phone Jesus Corbin MD PCP [...] capsule (three) times a week. On daialysis day([id number]) insulin lispro (HumaLOG) Inject under the skin [...] 02/12/20 02/29/20 Discontin gram in 50 mL Add-Escalante catheter daily for 14 17 17 ued [...] 14 each 0 05/17/19 06/01/19 1 gram ADD-Escalante in 50 catheter daily for 14 18 [...] Overview: Added automatically from request for surgery [id number] Atherosclerosis of [place] artery of left lower extremity with intermittent 04/25/2017 claudication Overview: Added automatically from request for surgery [id number] Thrombosis of arteriovenous dialysis fistula 02/20/2017 Osteomyelitis [...] Only Cardiovascular Adelaida Izquierdo MA Atherosclerosis of [place] artery of left lower extremity with intermittent claudication (Primary Dx); Peripheral vascular disorder 05/03/2017 Procedure Pass General Surgery 04/26/2017 Procedure Pass General Surgery 04/25/2017 [facility] General Surgery Rema Alexander MD Diabetic ulcer of left - Encounter Jesus Corbin MD midfoot associated with 05/17/2017 diabetes mellitus due to underlying condition, unspecified ulcer stage (Primary Dx); Pain; Open wnd of foot, left, subsequent encounter; Chronic osteomyelitis of left foot 04/04/2017 Emergency Emergency Medicine Ayala Jenkins Hyperkalemia (Primary Dx) Franc Gamino MD 03/09/2017 Lead General Internal Medicine Destiny Gonzalez 02/23/2017 Anesthesia [...] Tesha Fernandes MD Amputation, Below Knee-Right 01/27/2017 [facility] General Internal Medicine Domingo Pedraza Go, Osteomyelitis of right - Encounter foot, unspecified type 02/11/2017 Jessu Corbin MD (Primary Dx); ESRD (end stage renal disease); Hyperkalemia; Secondary hypertension; Osteomyelitis of lower leg 11/02/2016 [facility] General Internal Medicine Mundo Little MD Complication of - Encounter Jonh Bowie, arteriovenous dialysis 11/05/2016 DO fistula, initial Allegra Perez MD encounter (Primary Dx); Jesus Corbin MD Hyperkalemia after 08/10/2016 Family History Medical History Relation Name Comments [...] Taken Blood Pressure 143/63 05/17/2017 10:37 PM [employer] Pulse 93 05/17/2017 10:37 PM [employer] Temperature 36.1 C (97 F) 05/17/2017 10:37 PM [employer] Respiratory Rate 20 05/17/2017 10:37 PM [employer] Oxygen Saturation 96% 05/17/2017 10:37 PM [employer] Inhaled Oxygen - - Concentration Weight 118 kg (261 lb 2 oz) 05/16/2017 4:31 AM [employer] Height 177.8 cm (5' 10") 04/25/2017 2:11 PM [employer] Body Mass Index 37.47 05/16/2017 4:31 AM [employer] Plan of Treatment Health Maintenance Due Date Last Done Comments DIABETIC FOOT EXAM 1964 DIABETIC RETINAL EYE EXAM 1964 URINE MICROALBUMIN 1964 COLON CANCER SCREENING 2004 SHINGRIX VACCINE (#1) 2004 ZOSTER VACCINE 2014 INFLUENZA VACCINE 10/25/2017 Implants Implanted Type Area Sleeve Sewer Device Expiration Model / Identifier Date Serial / Lot Device Vasclr Clsr Baln Cath 10ml Cardiovasc N/A: N/A CARDINAL 2018 [id number] / Lkng Syr 6fr 7fr [facility] / [id number] Implants [id number] Implanted: 05/04/2017 (Quantity not on file) Catheter Science Analyst [place] 5fr 75cm Surgical N/A: N/A BSC PERIPHERAL 2017 [id number] 6x20mm 0.035in H-Pres - [id number] Implants; INTERVENTION 0 / Implanted: 11/03/2016 (Quantity not Expanders; VASCULAR MEGHA / on file) Extenders; [id number] Surgical Wires Drain Wnd Chnl 19fr n Rnd Hbls Surgical N/A: N/A [employer] [id number] / Fl-Flut W/ n Trocar - [id number] Implants; DIVISION / Implanted: 02/01/2017 (Quantity not Expanders; [id number] on file) Extenders; Surgical Wires Tray Cath Dialys Curved 3lumen 20cm Surgical N/A: N/A BARD ACCESS 04/ [id number] / 13fr Power-Trialysis - [id number] Implants; SYSTEMS / Implanted: 02/21/2017 (Quantity not Expanders; [id number] on file) Extenders; Surgical Wires Catheter Angio Sql Data Architect Ii 5fr Surgical N/A: N/A [facility] PERIPHERAL [id number] 0.038in 65cm Hf Contra-L - Implants; INTERVENTION / [id number] Expanders; VASCULAR MEGHA / Implanted: 05/04/2017 (Quantity not Extenders; on file) Surgical Wires Guidewire Angio Stiff Shaft Angld Surgical N/A: N/A COOK PERIPHERAL 10/21/2019 [id number] / [employer] .035inx - Stents INTERVENTION / [id number] Implanted: 05/04/2017 (Quantity not on file) Procedures Procedure Name Priority Date/Time Associated Diagnosis Comments HEMODIALYSIS Routine 05/16/2017 9:20 AM [employer] HEMODIALYSIS Routine 05/11/2017 11:32 AM [employer] VT AN ELECTIVE Routine 05/10/2017 SUPRAGLOTTIC AIRWAY 4:14 PM [employer] Procedure Note - Nickie Rene MD - 05/10/2017 4:14 PM [employer] Airway Date/Time: 05/10/2017 4:00 PM Performed by: [...] Routine 05/04/2017 Results for this 3:05 PM [employer] procedure are in the results section. HEMODIALYSIS Routine 05/04/2017 7:52 AM [employer] ECHOCARDIOGRAM 2D Routine 05/02/2017 Results for this COMPLETE W MMODE SPECTRAL 3:45 PM [employer] procedure are in the COLOR DOPPLER (25472) results section. HEMODIALYSIS Routine 05/02/2017 12:21 PM [employer] HEMODIALYSIS Routine 04/28/2017 11:09 AM [employer] HEMODIALYSIS Routine 04/26/2017 4:29 PM [employer] HEMODIALYSIS Routine 02/27/2017 8:51 AM [employer] HEMODIALYSIS Routine 02/25/2017 4:31 PM [employer] CV HYBRID OR FLUOROSCOPY Routine 02/23/2017 Results for this 1:00 PM [employer] procedure are in the results section. HEMODIALYSIS Routine 02/10/2017 12:29 PM [employer] HEMODIALYSIS Routine 02/08/2017 3:16 PM [employer] HEMODIALYSIS Routine 02/06/2017 7:43 AM [employer] HEMODIALYSIS Routine 01/30/2017 8:05 AM [employer] HEMODIALYSIS Routine 01/29/2017 11:38 AM [employer] VT CRITICAL CARE, E/M Routine 01/28/2017 Results for this 30-74 MINUTES 2:20 AM CDT procedure are in the results section. HEMODIALYSIS Routine 11/03/2016 5:39 PM CDT VT CRITICAL CARE, E/M Routine 11/03/2016 Results for this 30-74 MINUTES 1:58 PM CDT procedure are in the results section. after 08/10/2016 Results * CBC with platelet and differential (05/17/2017 10:03 PM) Only the most recent of 35 results within the time period is included. [...] - 1.0 % Specimen Performing Laboratory Blood [facility] DEPARTMENT OF PATHOLOGY AND GENOMIC MEDICINE [address] [place] [address] * POC glucose (05/17/2017 8:55 PM) Only the most recent of 170 results within the time period is included. Component Value Ref Range POC glucose 179 (H) 65 - 100 mg/dL Comment: Meter ID: [id number] Option Trader: Kael Borja Specimen Performing Laboratory [facility] DEPARTMENT OF PATHOLOGY AND GENOMIC MEDICINE [address] [place] [address] [place] [id number] * Prepare RBC, 1 Units (05/17/2017 12:51 PM) Only the most recent of 8 results within the time period is included. Component Value Ref Range Product name Red Blood Cells -1, Leukored Unit number [id number] Product code [id number] Dispense status Transfused Blood expiration date Blood type code 6200 Blood type A POSITIVE Specimen Performing Laboratory [facility] DEPARTMENT OF PATHOLOGY AND [facility] MEDICINE [address] [place] [address] [place] [address] * Type and screen (05/17/2017 12:51 PM) Only the most recent of 8 results within the time period is included. Component Value Ref Range ABO grouping A Rh type POS Antibody screen (gel) NEG Specimen Performing Laboratory Blood [facility] OF PATHOLOGY AND [address] [place] [address] * Estimated GFR (05/17/2017 6:23 AM) Only the most recent of 49 results within the time period is included. [...] and Americans. Specimen Performing Laboratory Plasma specimen [facility] DEPARTMENT OF PATHOLOGY AND GENOMIC MEDICINE [address] [place] [address] [place] [id number] * Basic metabolic panel (05/17/2017 6:23 AM) Only the most recent of 32 results within the time period is included. [...] 10.7 mg/dL Specimen Performing Laboratory Plasma specimen [facility] DEPARTMENT OF PATHOLOGY AND GENOMIC MEDICINE [address] [place] [address] [place]. [place] [id number] * Surgical pathology request (05/10/2017 9:16 AM) Only the most recent of 3 results within the time period is included. Component Value Ref Range Surgical pathology report See link below for PDF Lab Report Result status This is Final Report to [id number] Specimen Performing Laboratory [facility] DEPARTMENT OF PATHOLOGY AND GENOMIC MEDICINE [address] [place] [address] [place] [id number] * Vancomycin level, random (05/08/2017 5:18 AM) Only the most recent of 4 results within the time period is included. Component Value Ref Range Vancomycin, random 16.4 ug/mL Comment: Therapeutic Ranges: Peak 30.0 - 40.0 ug/mL Trough 10.0 - 20.0 ug/mL Specimen Performing Laboratory Blood [facility] DEPARTMENT OF PATHOLOGY AND GENOMIC MEDICINE [address] [place] [address] [place] [address] * Renal function panel (05/08/2017 5:18 AM) [...] 4.5 mg/dL Specimen Performing Laboratory Plasma specimen [facility] DEPARTMENT OF PATHOLOGY AND GENOMIC MEDICINE [address] [place] [address] * Hybrid or fluoroscopy (05/04/2017 3:05 PM) Narrative See operative report for the same day * Potassium level (05/04/2017 1:50 PM) Component Value Ref Range Potassium 3.8 3.5 - 5.0 mEq/L Specimen Performing Laboratory Plasma specimen [facility] DEPARTMENT OF PATHOLOGY AND GENOMIC MEDICINE [address] [place] [address] * PV physiologic arterial lower ext bilat complete w ann marie (05/03/2017 1:34 PM) Specimen Performing Laboratory [facility] [address] [place] [address] Narrative EXAMINATION:PV PHYSIOLOGIC ARTERIAL LOWER EXTREMITY COMPLETE [...] amplitude without delayed upstroke. Digit: Diminished amplitude. [facility]-[id number] ANN MARIE Guidelines: >1.4: Calcified Vessel 0.9-1.4: Normal 0.7-0.89: Mild PAD 0.51-0.69: Moderate PAD <0.5: Severe PAD TBI Guidelines: <0.6: Normal 0.34-0.59: Mild PAD 0.12-0.34: Moderate PAD <0.11: Severe PAD Procedure Note [facility], Radiology Results Incoming - 05/03/2017 2:08 PM [employer] EXAMINATION: PV PHYSIOLOGIC ARTERIAL LOWER EXTREMITY COMPLETE [...] amplitude without delayed upstroke. Digit: Diminished amplitude. [facility]-[id number] ANN MARIE Guidelines: >1.4: Calcified Vessel 0.9-1.4: Normal 0.7-0.89: Mild PAD 0.51-0.69: Moderate PAD <0.5: Severe PAD TBI Guidelines: <0.6: Normal 0.34-0.59: Mild PAD 0.12-0.34: Moderate PAD <0.11: Severe PAD * Partial thromboplastin time, activated (05/03/2017 4:47 AM) Only the most recent of 4 [...] validate this result. Specimen Performing Laboratory Blood [facility] DEPARTMENT OF PATHOLOGY AND GENOMIC MEDICINE [address] [place] [address] * Prothrombin time with INR (05/03/2017 4:47 [...] values over 4.0. Specimen Performing Laboratory Blood [facility] DEPARTMENT OF PATHOLOGY AND GENOMIC MEDICINE [address] [place] [address] * Echocardiogram complete w contrast and 3D [...] 51.70 % LV EF,A4C 48.98 % [place],d A4C 8.75 cm [place],s A4C 6.70 cm LV SV,A4C 66.16 % [...] 2.52 m/s2 Specimen Performing Laboratory [facility] [address] [place] [address] Narrative The left ventricle chamber size is [...] 16:28,-QRS duration has increased-Lateral infarct is now wejayxm-[id number]-[id number] change in ST segment in Inferior leads-Nonspecific T wave abnormality has replaced inverted T waves in Inferior leads- Specimen Performing Laboratory [facility] [address] [place] [address] * Us duplex arterial lower extremity (04/30/2017 9:09 PM) Only the most recent of 2 results within the time period is included. Specimen Performing Laboratory [facility] [address] [place] [address] Narrative US DUPLEX ARTERIAL LOWER EXTREMITY LEFT [...] participate in the care of your patient [facility]-[id number] Procedure Note Interface, Radiology Results Incoming - 04/30/2017 9:22 PM [employer] US DUPLEX ARTERIAL LOWER EXTREMITY LEFT CLINICAL [...] participate in the care of your patient [facility]-[id number] * MRI Foot Wo Contrast Left (04/29/2017 11:25 AM) Specimen Performing Laboratory [facility] [address] [place] [address] Narrative EXAMINATION:MRI FOOT WO CONTRAST LEFT CLINICAL [...] or abscess. Mild diffuse edema is present. [facility]-[id number] posterior Procedure Note Hm Interface, Radiology Results Incoming - 04/29/2017 12:26 PM [employer] EXAMINATION: MRI FOOT WO CONTRAST LEFT CLINICAL [...] or abscess. Mild diffuse edema is present. [facility]-[id number] posterior * Insert peripheral IV (04/28/2017 3:25 [...] Vancomycin Sensitive. (A) Specimen Performing Laboratory Wound [facility] DEPARTMENT OF PATHOLOGY AND GENOMIC MEDICINE [address] [place] [address] Organism Antibiotic Method Susceptibility Enterococcus faecalis Ampicillin [...] Specimen Site: Wound Specimen Performing Laboratory Wound [facility] DEPARTMENT OF PATHOLOGY AND GENOMIC MEDICINE [address] [place] [address] * Anaerobic culture (04/28/2017 3:05 PM) Only the most recent of 3 results within the time period is included. Component Value Ref Range Anaerobic culture isolate No anaerobic organisms isolated. Comment: Specimen Information Specimen Source: Wound Specimen Site: Wound Specimen Performing Laboratory Wound [facility] DEPARTMENT OF PATHOLOGY AND GENOMIC MEDICINE [address] [place] [address] * Smear review (04/28/2017 4:44 AM) Only the most recent of 5 results within the time period is included. Component Value Ref Range Platelet slide review Edward adequate Anisocytosis Moderate Polychromasia Slight Schistocytes Occasional Target cells Occasional Specimen Performing Laboratory [facility] DEPARTMENT OF PATHOLOGY AND GENOMIC MEDICINE [address] [place] [address] * Phosphorus level (04/28/2017 4:44 AM) Only the most recent of 10 results within the time period is included. Component Value Ref Range Phosphorus 8.2 (HH) 2.5 - 4.5 mg/dL Comment: Results called to and read back by KAILEY PORTILLO/Praneeth at 04/28/2017 06:21 by _IV_. Specimen Performing Laboratory Plasma specimen [facility] DEPARTMENT OF PATHOLOGY AND GENOMIC MEDICINE [address] [place] [address]. [place] [address] * Magnesium level (04/28/2017 4:44 AM) Only the most recent of 11 results within the time period is included. Component Value Ref Range Magnesium 2.10 1.60 - 2.40 mg/dL Specimen Performing Laboratory Plasma specimen [facility] DEPARTMENT OF PATHOLOGY AND GENOMIC MEDICINE [address] [place] [address] [place] [address] * Hepatitis B surface antigen (04/26/2017 10:10 AM) Only the most recent of 4 results within the time period is included. Component Value Ref Range Hepatitis B surface Ag Non-reactive Non-reactive Specimen Performing Laboratory Blood [facility] DEPARTMENT OF PATHOLOGY AND GENOMIC MEDICINE [address] [place] [address]. [place] [address] * Lactic acid level, SEPSIS - Now and repeat 2x every 3 hours (04/26/2017 12:48 AM) Only the most recent of 2 results within the time period is included. Component Value Ref Range Lactic acid 0.6 0.5 - 2.2 mmol/L Specimen Performing Laboratory Blood [facility] DEPARTMENT OF PATHOLOGY AND GENOMIC MEDICINE [address] [place] [address]. [place] [address] * XR Foot 3+ Vw Left (04/25/2017 5:32 PM) Specimen Performing Laboratory [facility] [address] [place] [address] Narrative EXAMINATION:XR FOOT 3VW LEFT CLINICAL HISTORY:left diabetic foot ulcer COMPARISON:None. IMPRESSION: There is a displaced fracture of the distal fifth metatarsal where there is an apparent soft tissue ulceration. This may represent superimposed osteomyelitis. There is diffuse soft tissue swelling. [id number] Procedure Note Hm Interface, Radiology Results Incoming - 04/25/2017 5:42 PM [employer] EXAMINATION: XR FOOT 3 VW LEFT CLINICAL HISTORY: left diabetic foot ulcer COMPARISON: None. IMPRESSION: There is a displaced fracture of the distal fifth metatarsal where there is an apparent soft tissue ulceration. This may represent superimposed osteomyelitis. There is diffuse soft tissue swelling. [id number] * Blood culture, aerobic & anaerobic (04/25/2017 3:54 PM) Only the most recent of 4 results within the time period is included. Component Value Ref Range Blood culture isolate No growth after 5 days of incubation. Comment: Specimen Information Specimen Source: Blood Specimen Site: Peripheral Forearm Left Specimen Performing Laboratory Blood [facility] DEPARTMENT OF PATHOLOGY AND GENOMIC MEDICINE [address] [place] [address] * Comprehensive metabolic panel (04/25/2017 3:47 PM) [...] 1.2 mg/dL Specimen Performing Laboratory Plasma specimen [facility] DEPARTMENT OF PATHOLOGY AND GENOMIC MEDICINE [address] [facility] [place] [address] * ECG ED Preliminary Interpretation - NOT AN ORDER (04/13/2017 8:22 AM) Only the most recent of 4 results within the time period is included. Narrative Ayala Jenkins Jr., MD 04/13/20178:22 AM ECG ED Preliminary Interpretation - Not an Order Performed by: AYALA JENKINS JR. Authorized by: AYALA JENKINS JR. ECG reviewed by ED Physician in the absence of a children counselor: yes Previous ECG: Previous ECG:Unavailable Interpretation: Interpretation: abnormal Rate: ECG rate:88 ECG rate assessment: normal Rhythm: Rhythm: sinus rhythm Ectopy: Ectopy: none QRS: QRS axis:Normal QRS intervals:Normal Conduction: Conduction: normal ST segments: ST segments:Normal T waves: T waves: inverted Inverted:V6 Q waves: Q waves:III and aVF Comments: EKG completed at 1831 04/04/2017 * IR Endovascular Consult (02/27/2017 4:06 PM) Specimen Performing Laboratory [facility] [address] [place] [address] Narrative EXAMINATION:IR ENDOVASCULAR CONSULT REASON FOR EXAMINATION:Renal Dialysis COMPARISON: None FINDINGS: The skin overlying the left infraclavicular region was prepped and draped in a sterile manner. The temporary dialysis catheter was then removed. The patient tolerated the procedure well. Hemostasis was obtained. The patient will be discharged from the radiology department in stable condition. IMPRESSION: 1. Removal of a nontunneled temporary hemodialysis catheter [id number] Procedure Note Interface, Radiology Results Incoming - 02/27/2017 7:00 PM [employer] EXAMINATION: IR ENDOVASCULAR CONSULT REASON FOR EXAMINATION: [...] Removal of a nontunneled temporary hemodialysis catheter [id number] * Hybrid or fluoroscopy (02/23/2017 1:00 PM) Narrative See operative report for the same day * XR Chest 1 Vw Portable (02/23/2017 7:40 AM) Specimen Performing Laboratory [facility] [address] [place] [address] Narrative EXAMINATION:XR CHEST 1 VW PORTABLE CLINICAL [...] Bones:unremarkable. IMPRESSION: Negative for acute cardiopulmonary disease. [id number] Procedure Note Interface, Radiology Results Incoming - 02/23/2017 8:07 AM [employer] EXAMINATION: XR CHEST 1 VW PORTABLE CLINICAL [...] unremarkable. IMPRESSION: Negative for acute cardiopulmonary disease. [id number] * IR Central Catheter Placement Replace Removal Fluoroscopy (02/21/2017 2:36 PM ) Specimen Performing Laboratory [facility] [address] [place] [address] Narrative PERFORMING RADIOLOGISTS: Erlin Gonzalez MD ASSISTANTS: None. ANESTHESIA: No sedation was administered. Lidocaine 1% and lidocaine 1% with epinephrine were used for local anesthetic. PRE PROCEDURE DIAGNOSIS: Need for dialysis. POST PROCEDURE DIAGNOSIS: Status post placement of non tunneled dialysis catheter. PROCEDURE: 1.Ultrasound-guided access of left internal jugular vein. 2.Placement of left internal jugular approach dual glide13 [place] non- tunneled hemodialysis catheter. PROCEDURE IN DETAIL: [...] serial dilatation a maximal diameter of 12 [place] was performed. Then, a 13 [place] 15 cm long dual glide non tunneled [...] IMPRESSION: Successful fluoroscopic-guided placement of a 13 [place] non tunneled dialysis catheter via the leftinternal jugular vein. The catheter tip lies at the right atrium/superior vena cava junction and is ready for use. [id number] [id number] Procedure Note Hm Interface, Radiology Results Incoming - 02/21/2017 3:01 PM [employer] PERFORMING RADIOLOGISTS: Erlin Gonzalez MD ASSISTANTS: None. ANESTHESIA: No sedation was administered. Lidocaine 1% and lidocaine 1% with epinephrine were used for local anesthetic. PRE PROCEDURE DIAGNOSIS: Need for dialysis. POST PROCEDURE DIAGNOSIS: Status post placement of non tunneled dialysis catheter. PROCEDURE: 1. Ultrasound-guided access of left internal jugular vein. 2. Placement of left internal jugular approach dual glide 13 [place] non- tunneled hemodialysis catheter. PROCEDURE IN DETAIL: [...] serial dilatation a maximal diameter of 12 [place] was performed. Then, a 13 [place] 15 cm long dual glide non tunneled [...] IMPRESSION: Successful fluoroscopic-guided placement of a 13 [place] non tunneled dialysis catheter via the leftinternal jugular vein. The catheter tip lies at the right atrium/superior vena cava junction and is ready for use. [id number] [id number] * IR Central Catheter Placement Us (02/21/2017 2:36 PM) Specimen Performing Laboratory [facility] [address] [place] [address] Narrative PERFORMING RADIOLOGISTS: Erlin Gonzalez MD ASSISTANTS: None. ANESTHESIA: No sedation was administered. Lidocaine 1% and lidocaine 1% with epinephrine were used for local anesthetic. PRE PROCEDURE DIAGNOSIS: Need for dialysis. POST PROCEDURE DIAGNOSIS: Status post placement of non tunneled dialysis catheter. PROCEDURE: 1.Ultrasound-guided access of left internal jugular vein. 2.Placement of left internal jugular approach dual glide13 [place] non- tunneled hemodialysis catheter. PROCEDURE IN DETAIL: [...] serial dilatation a maximal diameter of 12 [place] was performed. Then, a 13 [place] 15 cm long dual glide non tunneled [...] IMPRESSION: Successful fluoroscopic-guided placement of a 13 [place] non tunneled dialysis catheter via the leftinternal jugular vein. The catheter tip lies at the right atrium/superior vena cava junction and is ready for use. [id number] [id number] Procedure Note Hm Interface, Radiology Results Incoming - 02/21/2017 3:01 PM [employer] PERFORMING RADIOLOGISTS: Erlin Gonzalez MD ASSISTANTS: None. ANESTHESIA: No sedation was administered. Lidocaine 1% and lidocaine 1% with epinephrine were used for local anesthetic. PRE PROCEDURE DIAGNOSIS: Need for dialysis. POST PROCEDURE DIAGNOSIS: Status post placement of non tunneled dialysis catheter. PROCEDURE: 1. Ultrasound-guided access of left internal jugular vein. 2. Placement of left internal jugular approach dual glide 13 [place]ander non- tunneled hemodialysis catheter. PROCEDURE IN DETAIL: [...] serial dilatation a maximal diameter of 12 [place] was performed. Then, a 13 [place] 15 cm long dual glide non tunneled [...] IMPRESSION: Successful fluoroscopic-guided placement of a 13 [place] non tunneled dialysis catheter via the leftinternal jugular vein. The catheter tip lies at the right atrium/superior vena cava junction and is ready for use. [id number] [id number] * Troponin (02/20/2017 6:22 PM) Only the [...] myocardial injury. Specimen Performing Laboratory Plasma specimen [facility] DEPARTMENT OF PATHOLOGY AND GENOMIC MEDICINE [address] [place] [id number] * B natriuretic peptide (02/20/2017 6:22 PM) Only the most recent of 2 results within the time period is included. Component Value Ref Range BNP 156 (H) 0 - 100 pg/mL Specimen Performing Laboratory Blood [facility] DEPARTMENT OF PATHOLOGY AND GENOMIC MEDICINE [address] [place] [address] * Transfuse RBC (02/08/2017 5:31 PM) Only the most recent of 5 results within the time period is included. * Total iron binding capacity (02/05/2017 6:30 AM) Component Value Ref Range Iron level 97 76 - 198 ug/dL Iron binding capacity 160 (L) 271 - 474 ug/dL % Saturation 60.6 (H) 20.0 - 40.0 % Specimen Performing Laboratory Plasma specimen [facility] DEPARTMENT OF PATHOLOGY AND GENOMIC MEDICINE [address] [place] [address] * Ferritin level (02/05/2017 6:30 AM) Component Value Ref Range Ferritin level 1,561 (H) 18 - 158 ng/mL Specimen Performing Laboratory Serum [facility] DE[facility]MENT OF PATHOLOGY AND GENOMIC MEDICINE [address] [place] [address] * Urinalysis screen and microscopy, with reflex [...] None seen UA Specimen Performing Laboratory Urine [facility] DE[facility]MENT OF PATHOLOGY AND GENOMIC MEDICINE [address] [place] [address] * Urine culture (01/29/2017 10:27 AM) Component Value Ref Range Urine culture SEE COMMENTComment: Bacteriuria screen negative. Specimen Performing Laboratory Urine [facility] OF [facility]OLOGY AND GENOMIC MED[facility]INE [address] [facility] [address] [address] * Hepatitis B surface Ab, quantitative (01/28/2017 [...] Cellular and Tissue-Based Products (HCT/P). Performed by [facility], [address] [place] [address] [email or web address], Raheem Cox MD - Lab. Director Specimen Performing Laboratory Serum [facility] [address] [place] [address] * CRITICAL CARE (01/28/2017 2:20 AM) Narrative [...] extremity (01/27/2017 10:38 PM) Specimen Performing Laboratory [address] [address] Narrative EXAMINATION:US DUPLEX VENOUS LOWER EXTREMITY RIGHT [...] is no evidence of deep venous thrombosis. [facility]-[id number] Procedure Note Interface, Radiology Results Incoming - [...] is no evidence of a popliteal or Udncan's cyst. The left common femoral vein is patent. IMPRESSION: Normal right lower extremity venous Doppler examination. There is no evidence of deep venous thrombosis. [facility]-[id number] * XR Foot 3+ Vw Right (01/27/2017 7:49 PM) Specimen Performing Laboratory [facility] [place] [address] Narrative XR FOOT 3VW RIGHT CLINICAL INDICATION:OSTEOMYELITIS [...] fracture is identified. The bones are demineralized. [facility]-[id number] Procedure Note Hm Interface, Radiology Results Incoming - 01/27/2017 8:01 [...] fracture is identified. The bones are demineralized. [facility]-[id number] * IR Evaluation of Dialysis Fistula/Graft w Angioplasty (11/03/2016 5:26 PM) Specimen Performing Laboratory [facility] [place] [address] Addenda Addendum by Erlin Gonzalez MD on [...] needle. Needle was exchanged for a 5 [place] micropuncture sheath. Inner portion of the micropuncture [...] The needle was exchanged for a 5 [place] micropuncture sheath. The inner portion of the sheath and microwire were exchanged for 0.035 inch Bentson wire. The micropuncture sheath was exchanged for a 6 [place] vascular sheath. A roadmap function to highlight anatomy, a 5 [place] Evans catheter and a 0.035 inch glide wire were advanced across the arteriovenous anastomosis into the distal right brachial artery. The Glidewire was exchanged for a Bentson wire. The Evans catheter was exchanged for first a 6 mm x 2 cm [place] balloon. Angioplasty was performed along the length [...] a maximal diameter of 6 mm. 3. Islam of excellent pulse and thrill throughout the [...] needle. Needle was exchanged for a 5 [place] micropuncture sheath. Inner portion of the micropuncture [...] The needle was exchanged for a 5 [place] micropuncture sheath. The inner portion of the sheath and microwire were exchanged for 0.035 inch Bentson wire. The micropuncture sheath was exchanged for a 6 [place] vascular sheath. A roadmap function to highlight anatomy, a 5 [place] Evans catheter and a 0.035 inch glide wire were advanced across the arteriovenous anastomosis into the distal right brachial artery. The Glidewire was exchanged for a Bentson wire. The Evans catheter was exchanged for first a 6 mm x 2 cm [place] balloon. Angioplasty was performed along the length [...] a maximal diameter of 6 mm. 3. Islam of excellent pulse and thrill throughout the [...] needle. Needle was exchanged for a 5 [place] micropuncture sheath. Inner portion of the micropuncture [...] The needle was exchanged for a 5 [place] micropuncture sheath. The inner portion of the sheath and microwire were exchanged for 0.035 inch Bentson wire. The micropuncture sheath was exchanged for a 6 [place] vascular sheath. A roadmap function to highlight anatomy, a 5 [place] Evans catheter and a 0.035 inch glide wire were advanced across the arteriovenous anastomosis into the distal right brachial artery. The Glidewire was exchanged for a Bentson wire. The Evans catheter was exchanged for first a 6 mm x 2 cm [place] balloon. Angioplasty was performed along the length [...] a maximal diameter of 6 mm. 3. Islam of excellent pulse and thrill throughout the [...] indicated. (A [id number]) Specimen Performing Laboratory Blood [facility] OF PATHOLOGY AND GENOMIC MEDICINE [address] [place] [address] * Lipid panel (11/02/2016 6:26 PM) Component [...] (>=200 mg/dL) Specimen Performing Laboratory Plasma specimen [facility] OF PATHOLOGY AND GENOMIC MEDICINE [address] [place] [address] after 08/10/2016 Insurance Payer Benefit Subscriber ID Type Phone Address Plan / Group [employer] MED[employer] xxxxxxxxx O [employer] Home: [address] [facility] [place] [phone]
--- OUTSIDE RECORDS SUMMARY | 2017-08-11 21:30 | XMS REPORT ---
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 Allergies, Adverse Reactions, Alerts This patient has no known allergies or adverse reactions. Medications This patient has no known medications. Results Test Description Test Time Test Comments Text Results Atomic Results Result Comments URINE CULTURE 2017-07-14 10:29:00 CULTURE (BEAKER) (test ngks=8891) KLEBSIELLA PNEUMONIAE SSP PNEUMONIAE > 100,000 col/mL Klebsiella pneumoniae ssp pneumoniae Amikacin (test code=1) Ampicillin + Sulbactam (test code=6) Aztreonam (test code=32) Cefepime (test code=51) Cefoxitin (test code=68) Ceftazidime (test code=27) Ceftriaxone (test code=52) Ertapenem (test code=38) Gentamicin (test code=18) Levofloxacin (test code=22) Meropenem (test code=34) Nitrofurantoin (test code=23) Piperacillin + Tazobactam (test code=29) Tetracycline (test code=2) Tobramycin (test code=25) Trimethoprim + Sulfamethoxazole (test code=47) CULTURE (BEAKER) (test xayt=2838) ESCHERICHIA COLI >100,000 col/mL Escherichia coliESBL Positive Amikacin (test code=1) Ampicillin + Sulbactam (test code=6) Aztreonam (test code=32) Cefepime (test code=51) Cefoxitin (test code=68) Ceftazidime (test code=27) Ceftriaxone (test code=52) Ertapenem (test code=38) Gentamicin (test code=18) Levofloxacin (test code=22) Meropenem (test code=34) Nitrofurantoin (test code=23) Piperacillin + Tazobactam (test code=29) Tetracycline (test code=2) Tobramycin (test code=25) Trimethoprim + Sulfamethoxazole (test code=47) CULTURE (BEAKER) (test jets=9922) VANCOMYCIN RESISTANT ENTEROCOCCUS SPECIES >100,000 col/mL Vancomycin resistant Enterococcus species Ampicillin (test code=26) Linezolid (test code=40) Nitrofurantoin (test code=23) Tetracycline (test code=2) Vancomycin (test code=13) Daptomycin (test code=59) Susceptible 0-4 , No Interpretations Established <0 or >4 <10,000 col/mL Gram negative dora of a 3rd typeBLOOD [id number] 11:00:00* Test Item Value Reference Range Comments CULTURE (BEAKER) (test iqjp=1995) No growth in 5 days POCT-GLUCOSE [id number] 07:55:00* Test Item Value Reference Range Comments POC-GLUCOSE METER (BEAKER) (test wksi=6509) 140 mg/dL 70-110 TESTED AT [address] [address] POCT-GLUCOSE [id number] 16:59:00* Test Item Value Reference Range Comments POC-GLUCOSE METER (BEAKER) (test jqtx=8870) 156 mg/dL 70-110 TESTED AT [address] [address] POCT-GLUCOSE [id number] 11:53:00* Test Item Value Reference Range Comments POC-GLUCOSE METER (BEAKER) (test feyw=2681) 204 mg/dL 70-110 TESTED AT [address] [address] URINALYSIS W/ [id number] 09:17:00* Test Item Value Reference Range Comments COLOR (BEAKER) (test ughd=669) Yellow CLARITY (BEAKER) (test wgxg=842) Hazy SPECIFIC GRAVITY UA (BEAKER) (test xogm=653) 1.011 1.001-1.035 PH UA (BEAKER) (test zkef=948) 8.0 5.0-8.0 PROTEIN UA (BEAKER) (test aylr=257) 600 mg/dL Negative GLUCOSE UA (BEAKER) (test luip=183) 500 mg/dL Negative KETONES UA (BEAKER) (test aqmc=858) Negative Negative BILIRUBIN UA (BEAKER) (test rgpk=803) Negative Negative BLOOD UA (BEAKER) (test seol=103) Small Negative NITRITE UA (BEAKER) (test mipa=306) Negative Negative LEUKOCYTE ESTERASE UA (BEAKER) (test liud=372) Large Negative UROBILINOGEN UA (BEAKER) (test zwpn=547) 0.2 mg/dL 0.2-1.0 RBC UA (BEAKER) (test mgfg=109) 23 /HPF WBC UA (BEAKER) (test sdbv=354) 743 /HPF BACTERIA (BEAKER) (test tfej=352) Moderate SQUAMOUS EPITHELIAL (BEAKER) (test aiig=080) 1 /HPF SOURCE(BEAKER) (test peqb=1995) POCT-GLUCOSE [id number] 07:42:00* Test Item Value Reference Range Comments POC-GLUCOSE METER (BEAKER) (test esgn=2681) 167 mg/dL 70-[address] [facility] [address] [facility] [address] POCT-GLUCOSE [id number] 21:09:00* Test Item Value Reference Range Comments POC-GLUCOSE METER (BEAKER) (test xftk=8516) 216 mg/dL 70-110 TESTED AT [place] [id number] [facility] [address] EEG AWAKE AND [id number] 18:01:00Reason for exam:->b/l arm tremorsDate(s) of EE07/07/17 DATE OF REPORT: 07/07/17 ACC: [id number] EEG Number: [id number] Test Location: Inpatient Room Start time: 1717 Stop time: 1738 ICD-10: R56.9 CPT Code : 49699 HISTORY: 62 year old male with ESRD secondary to DM/HTN, on HD for last 2 years. Admitted with tremors in all extremities after a repair of right upper arm AVF on 06/30 at [facility]. EEG to further evaluate. MEDICATIONS THAT COULD AFFECT EEG: Lorazepam, Heparin, Metoprolol, Mupirocin, Nifedipine, Promethazine, alteplase, clonidine, ondansetron, mannitol TECHNICAL SUMMARY: This is a digital video-EEG recorded with 32 input channels reviewed with bipolar and referential montages using the modified combinatorial system nomenclature. DESCRIPTION OF RECORD: During the maximally alert state a 8-9 Hz posterior dominant rhythm was seen that was symmetric, reactive to eye opening and well regulated. More anteriorly, low voltage frontocentral beta predominated. Drowsiness was characterized by alpha attenuation and increased frontocentral theta. Stage 2 sleep was reached characterized by symmetric sleep spindles and K-complexes. Note: The patient had a prominent tremor in his b/l upper extremities without EEG correlate. There was a prominent 5 Hz artifact in the b/l posterior head regions due to the tremor. SIGNIFICANT ELECTROCARDIOGRAM EVENTS: None HV: Hyperventilation was not performed. PHOTIC STIMULATION: Photic stimulation was done from 1-30 Hz; no photic driving was seen; photoparoxysmal responses were absent. IMPRESSION: Normal Awake and Drowsy EEG CLINICAL CORRELATION: This is a normal awake and drowsy EEG. An EEG without epileptiform discharges does not exclude the possibility of epilepsy. If the clinical suspicion of epilepsy remains, consider additional EEG recordings. The patient had prominent bilateral upper extremity tremors without EEG correlate. Sheldon Izaguirre MD, MS Clinical Neurophysiology/Epilepsy Attending -GLUCOSE [id number] 12:20:00* Test Item Value Reference Range Comments POC-GLUCOSE METER (BEAKER) (test xxkc=3280) 90 mg/dL 70-110 TESTED AT [address] [address] HEPATITIS B SURFACE [id number] 09:37:00* Test Item Value Reference Range Comments HEPATITIS B SURFACE ANTIGEN (2) (BEAKER) (test kpyq=9957) Nonreactive Nonreactive COMPREHENSIVE METABOLIC [id number] 09:28:00* Test Item Value Reference Range Comments TOTAL PROTEIN (BEAKER) (test rxeb=800) 7.6 gm/dL 6.0-8.3 ALBUMIN (BEAKER) (test lkcx=9545) 3.6 g/dL 3.5-5.0 ALKALINE PHOSPHATASE (BEAKER) (test imsz=696) 66 U/L 40-150 BILIRUBIN TOTAL (BEAKER) (test ckga=539) 0.4 mg/dL 0.2-1.2 SODIUM (BEAKER) (test xopq=964) 136 meq/L 136-145 POTASSIUM (BEAKER) (test llvw=521) 5.3 meq/L 3.5-5.1 CHLORIDE (BEAKER) (test hlan=461) 101 meq/L 98-107 CO2 (BEAKER) (test flvw=185) 21 meq/L 22-29 BLOOD UREA NITROGEN (BEAKER) (test edjp=787) 57 mg/dL 7-21 CREATININE (BEAKER) (test rwsg=547) 8.71 mg/dL 0.57-1.25 GLUCOSE RANDOM (BEAKER) (test qidp=894) 103 mg/dL 70-105 CALCIUM (BEAKER) (test vsov=267) 8.8 mg/dL 8.4-10.2 AST (SGOT) (BEAKER) (test bvgq=576) 10 U/L 5-34 ALT (SGPT) (BEAKER) (test sucp=192) < U/L 6-55 EGFR (BEAKER) (test sben=4382) 6 mL/min/1.73 sq m ESTIMATED GFR IS NOT ACCURATE CREATININE CLEARANCE IN PREDICTING GLOMERULAR FILTRATION RATE. ESTIMATED GFR IS NOT APPLICABLE FOR DIALYSIS PATIENTS. [id number] 09:17:00* Test Item Value Reference Range Comments PHOSPHORUS (BEAKER) (test gkoy=969) 7.4 mg/dL 2.3-4.7 CBC W/PLT COUNT & AUTO [id number] 09:00:00* Test Item Value Reference Range Comments WHITE BLOOD CELL COUNT (BEAKER) (test thbn=330) 8.3 K/ L 3.5-10.5 RED BLOOD CELL COUNT (BEAKER) (test gdvi=246) 2.85 M/ L 4.63-6.08 HEMOGLOBIN (BEAKER) (test xmhx=603) 8.2 GM/DL 13.7-17.5 HEMATOCRIT (BEAKER) (test sqhl=458) 26.8 % 40.1-51.0 MEAN CORPUSCULAR VOLUME (BEAKER) (test woqk=881) 94.0 fL 79.0-92.2 MEAN CORPUSCULAR HEMOGLOBIN (BEAKER) (test kyis=957) 28.8 pg 25.7-32.2 MEAN CORPUSCULAR HEMOGLOBIN CONC (BEAKER) (test yqzi=143) 30.6 GM/DL 32.3- 36.5 RED CELL DISTRIBUTION WIDTH (BEAKER) (test njrc=676) 16.2 % 11.6-14.4 PLATELET COUNT (BEAKER) (test aebm=216) 255 K/CU MM 150-450 MEAN PLATELET VOLUME (BEAKER) (test zbsh=817) 8.6 fL 9.4-12.4 NUCLEATED RED BLOOD CELLS (BEAKER) (test xowi=759) 0 /100 WBC 0-0 NEUTROPHILS RELATIVE PERCENT (BEAKER) (test jzzk=627) 74 % LYMPHOCYTES RELATIVE PERCENT (BEAKER) (test hejm=389) 14 % MONOCYTES RELATIVE PERCENT (BEAKER) (test lnfw=520) 7 % EOSINOPHILS RELATIVE PERCENT (BEAKER) (test syut=839) 4 % BASOPHILS RELATIVE PERCENT (BEAKER) (test cxnl=626) 1 % NEUTROPHILS ABSOLUTE COUNT (BEAKER) (test avlk=820) 6.10 K/ L 1.78-5.38 LYMPHOCYTES ABSOLUTE COUNT (BEAKER) (test aepu=813) 1.17 K/ L 1.32-3.57 MONOCYTES ABSOLUTE COUNT (BEAKER) (test enlv=751) 0.55 K/ L 0.30-0.82 EOSINOPHILS ABSOLUTE COUNT (BEAKER) (test gaea=434) 0.35 K/ L 0.04-0.54 BASOPHILS ABSOLUTE COUNT (BEAKER) (test ecmi=487) 0.09 K/ L 0.01-0.08 IMMATURE GRANULOCYTES-RELATIVE PERCENT (BEAKER) (test rvxv=2204) 0 % 0-1 POCT-GLUCOSE [id number] 07:54:00* Test Item Value Reference Range Comments POC-GLUCOSE METER (BEAKER) (test jlcl=7514) 100 mg/dL 70-[address] [facility] [address] [facility] [address] POCT-GLUCOSE [id number] 21:24:00* Test Item Value Reference Range Comments POC-GLUCOSE METER (BEAKER) (test kmur=4708) 87 mg/dL 70-[address] [facility] [address] [facility] [address] MR, BRAIN, WITHOUT [id number] 18:05:00FINAL REPORT MRI brain without contrast 07/06/2017 6:03 PM CLINICAL INDICATION: uncontrolled body tremors TECHNIQUE: Multiplanar, multisequence MR imaging of the brain was performed utilizing the following imaging sequences: Axial T1, T2 , FLAIR, GRE, and DWI; sagittal and coronal T1-weighted images. COMPARISON: None available FINDINGS: There is no acute infarct, hematoma, mass, extra-axial collection, or hydrocephalus. There is mild chronic microvascular ischemia in the supratentorial white matter. There is a punctate chronic infarct in the left cerebellum. There is generalized parenchymal volume loss. Normal appearing flow-voids are present in the major intracranial vascular structures. The sellar and pineal regions are normal. The craniovertebral junction is intact. The orbits, face, and skull base are without worrisome finding. IMPRESSION: Mild chronic ischemic changes. No acute intracranial abnormality. Signed: Jose Chirinos Verified Date/Time: 07/06/2017 18:05:27 Reading Location: [facility] Radiology Reading Room -GLUCOSE [id number] 12:53:00* Test Item Value Reference Range Comments POC-GLUCOSE METER (BEAKER) (test iick=4115) 108 mg/dL 70-[address] [facility] [address] [facility] [address] RAD, FOOT, MIN 3 VIEWS, [id number] 12:48:00Reason for exam:->Eval for osteomyelitisReason for exam:->Nonhealing woundFINAL REPORT Foot, left, three views INDICATION: Osteomyelitis, nonhealing wound. COMPARISON: None available IMPRESSION: There is absence of the majority of the fifth metatarsal suggesting prior amputation. There is soft tissue swelling with skin irregularity presumably reflecting known wound. Lucency and cortical irregularity at the base of the fifth proximal phalanx in the remnant fifth metatarsal may reflect osteomyelitis. Advise MRI or bone scan for more sensitive assessment. There are hammertoe deformities. There is nonspecific sclerosis and chronic periosteal reaction along the second through fourth metatarsals. There is multifocal midfoot arthropathy, mild first MTP joint arthropathy, and osteopenia. Vascular calcifications are present. Signed: Consuelo Francis Verified Date/Time: 07/06/2017 12:48:52 Reading Location: [facility] Radiology Reading Room -GLUCOSE [id number] 08 :23:00* Test Item Value Reference Range Comments POC-GLUCOSE METER (BEAKER) (test ohxa=8955) 114 mg/dL 70-[address] [facility] [address] [facility] [place] [address] CREATINE KINASE (CK), TOTAL AND [id number] 05:59:00* Test Item Value Reference Range Comments CREATINE KINASE TOTAL (BEAKER) (test gkvh=779) 38 U/L 29-200 CREATINE KINASE-MB (BEAKER) (test ibai=533) 0.9 ng/mL 0.0-6.6 CREATINE KINASE-MB INDEX (BEAKER) (test wfht=301) 2.4 % CK-MB Reference Range:<6.7 Normal6.7-10.0 Borderline>10.0 AbnormalTROPONIN [id number] 05:59:00* Test Item Value Reference Range Comments TROPONIN I (BEAKER) (test ufhk=170) 0.02 ng/mL 0.00-0.03 Troponin I (TnI) levels must be interpreted in the context of the presenting symptoms and the clinical findings. Elevated TnI levels indicate myocardial damage, but are not specific for ischemic heart disease. Elevated TnI levels are seen in patients with other cardiac conditions (including myocarditis and congestive heart failure), and slight TnI elevations occur in patients with other conditions, including sepsis, renal failure, acidosis, acute neurological disease, and persistent tachyarrhythmia.BASIC METABOLIC [id number] 05:55:00 * Test Item Value Reference Range Comments SODIUM (BEAKER) (test wxov=521) 136 meq/L 136-145 POTASSIUM (BEAKER) (test rmxs=350) 5.3 meq/L 3.5-5.1 CHLORIDE (BEAKER) (test xslf=853) 102 meq/L 98-107 CO2 (BEAKER) (test myqo=831) 19 meq/L 22-29 BLOOD UREA NITROGEN (BEAKER) (test ezhm=547) 49 mg/dL 7-21 CREATININE (BEAKER) (test rhxa=701) 7.81 mg/dL 0.57-1.25 GLUCOSE RANDOM (BEAKER) (test mskv=140) 122 mg/dL 70-105 CALCIUM (BEAKER) (test hzbx=862) 8.9 mg/dL 8.4-10.2 EGFR (BEAKER) (test vmwf=0180) 7 mL/min/1.73 sq m ESTIMATED GFR IS NOT ACCURATE CREATININE CLEARANCE IN PREDICTING GLOMERULAR FILTRATION RATE. ESTIMATED GFR IS NOT APPLICABLE FOR DIALYSIS PATIENTS. [id number] 05:26:00* Test Item Value Reference Range Comments PROTIME (BEAKER) (test mkpa=416) 15.9 seconds 11.7-14.7 INR (BEAKER) (test knss=058) 1.3 <=5.9 PARTIAL THROMBOPLASTIN TIME (BEAKER) (test boqh=216) 27.3 seconds 22.5-36.0 RECOMMENDED COUMADIN/WARFARIN INR THERAPY RANGESSTANDARD DOSE: 2.0 - 3.0 Includes: PROPHYLAXIS for venous thrombosis, systemic embolization; TREATMENT for venous thrombosis and/or pulmonary embolus.HIGH RISK: Target INR is 2.5-3.5 for patients with mechanical heart valves.CBC W/PLT COUNT & AUTO [id number] 05:00:00* Test Item Value Reference Range Comments WHITE BLOOD CELL COUNT (BEAKER) (test fopz=959) 8.7 K/ L 3.5-10.5 RED BLOOD CELL COUNT (BEAKER) (test pwgr=115) 2.82 M/ L 4.63-6.08 HEMOGLOBIN (BEAKER) (test ctfq=465) 8.3 GM/DL 13.7-17.5 HEMATOCRIT (BEAKER) (test mxfg=847) 26.7 % 40.1-51.0 MEAN CORPUSCULAR VOLUME (BEAKER) (test kkwx=627) 94.7 fL 79.0-92.2 MEAN CORPUSCULAR HEMOGLOBIN (BEAKER) (test tdxc=607) 29.4 pg 25.7-32.2 MEAN CORPUSCULAR HEMOGLOBIN CONC (BEAKER) (test sgxd=035) 31.1 GM/DL 32.3- 36.5 RED CELL DISTRIBUTION WIDTH (BEAKER) (test hder=205) 16.4 % 11.6-14.4 PLATELET COUNT (BEAKER) (test vbam=960) 214 K/CU MM 150-450 MEAN PLATELET VOLUME (BEAKER) (test ctgh=584) 8.8 fL 9.4-12.4 NUCLEATED RED BLOOD CELLS (BEAKER) (test bpbb=590) 0 /100 WBC 0-0 NEUTROPHILS RELATIVE PERCENT (BEAKER) (test lsur=448) 76 % LYMPHOCYTES RELATIVE PERCENT (BEAKER) (test dlht=862) 13 % MONOCYTES RELATIVE PERCENT (BEAKER) (test xdhc=417) 7 % EOSINOPHILS RELATIVE PERCENT (BEAKER) (test efow=993) 3 % BASOPHILS RELATIVE PERCENT (BEAKER) (test zycx=912) 1 % NEUTROPHILS ABSOLUTE COUNT (BEAKER) (test eaid=083) 6.61 K/ L 1.78-5.38 LYMPHOCYTES ABSOLUTE COUNT (BEAKER) (test mqnv=940) 1.11 K/ L 1.32-3.57 MONOCYTES ABSOLUTE COUNT (BEAKER) (test stpl=920) 0.60 K/ L 0.30-0.82 EOSINOPHILS ABSOLUTE COUNT (BEAKER) (test jmwe=492) 0.24 K/ L 0.04-0.54 BASOPHILS ABSOLUTE COUNT (BEAKER) (test tzzk=735) 0.09 K/ L 0.01-0.08 IMMATURE GRANULOCYTES-RELATIVE PERCENT (BEAKER) (test hnsd=0114) 0 % 0-1 CT, BRAIN, WITHOUT [id number] 04:32:00Reason for exam:->slurred speechReason for exam:->SHAKINGWhat is the patient's sedation requirement?->No SedationFINAL REPORT CT, BRAIN, WITHOUT CONTRAST INDICATION: "Cerebral ischemiaslurred speechSHAKING" TECHNIQUE: Noncontrast axial imaging was obtained from the vertex to the skull base. Axial images were reconstructed using a bone algorithm. DOSE REDUCTION: Dose modulation, iterative reconstruction, and/or weight-based adjustment of the mA/kV was utilized to reduce the radiation dose to as low as reasonably achievable. COMPARISON: None. FINDINGS: Calcification of the globus pallidi.Midline structures and posterior fossa within normal limits.No subacute territorial infarction or hyperdense thrombus.No acute intracranial hemorrhage.No acute hydrocephalus. Intact calvarium.Symmetric globes.The paranasal sinuses and mastoid air cells are well-aerated. IMPRESSION: No acute intracranial abnormality. Signed: Janna Jeffries MDReport Verified Date/Time: 07/06/2017 04 :32:28 Reading Location: [address] Reading Room , CHEST, 2 [id number] 04:17:00Reason for exam:->CHILLSReason for exam:-> SHAKINGFINAL REPORT RAD, CHEST, 2 VIEWS INDICATION: CHILLSSHAKING COMPARISON: Chest x-ray in 2010 TECHNIQUE: Frontal and lateral views of the chest. FINDINGS: Right IJ approach dialysis catheter terminates in the proximal right atrium.Prominent cardiac silhouette.No overt consolidative or congestive change.No acute osseous abnormality. IMPRESSION:No acute cardiopulmonary abnormality. Signed: Janna Jeffries MDReport Verified Date/Time : 07/06/2017 04:17:31 Reading Location: [facility] C013T Transitional Reading Room CONSULT [place] [address] Patient Name: TYLER BISHOP MR # : [id number] : 1955 Age/Sex: 62/M Req #: [id number] Adm Physician: SOFÍA AGGARWAL MD Ordered by: LUIS A FRENCH MD Report #: [id number] Location: MED/SURG Room/Bed: [facility] _ Procedure: [id number] DX/IR CONSULT Exam Date: Exam Time: REPORT STATUS: Signed PROCEDURE: Central venogram. Conversion of temporary to tunneled central venous catheter. COMPARISON: None. INDICATIONS: Catheter malfunction. COMPLICATIONS: None. MEDICATIONS : None. BLOOD LOSS: Less than 5 cc. PROCEDURE: The existing dialysis catheter was noted. The existing catheter and surrounding skin were prepped and draped in usual sterile fashion. A 0.035 inch wire was advanced through the catheter. The catheter was removed. The skin and wire were prepped again. A vascular sheath was advanced over the wire. A digital subtracted central venogram was performed. The right internal jugular vein was stenotic and minimally opacified. The right external jugular vein was patent. Lidocaine was injected into the subcutaneous tissues on the right upper chest wall. Skin neck was made with a #11 blade. The catheter was tunneled to the vascular access site. A peel-away sheath was advanced over the wire. The wire and stylette were removed. The catheter was placed within the peel-away sheath. The peel-away sheath was removed. The catheter tip was positioned within the right atrium. The catheter ports demonstrated function with aspiration and flush of sterile saline. The catheter was secured to the skin with 3-0 Ethilon suture. The venous access site was closed with Dermabond. Sterile dressings were applied. The patient tolerated the procedure well. There no immediate complications. Patient was transferred to the post procedure area in stable unchanged condition from further monitoring. CONCLUSION: Successful conversion of the right external jugular temporary central venous catheter for a tunneled central venous hemodialysis catheter. 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 Dictated by: Kate Lockhart M.D. on 2017 at 14:04 Electronically approved by: Kate Lockhart M.D. on 2017 at 14:04 Dictated By: KATE LOCKHART MD 03 Transcribed By: PHILLIP on 07/06/171403 COPY TO: LUIS A FRENCH MD SPECIAL PROCEDURE IN E COMMERCE DIRECTOR [place] [address] Patient Name: TYLER BISHOP MR #: [id number] : 1955 Age/Sex: 62/M Req #: [id number] Adm Physician: SOFÍA AGGARWAL MD Ordered by: LUIS A FRENCH MD Report #: [id number] Location: MED/SURG Room/Bed: [facility] Procedure: [id number] IR/SPECIAL PROCEDURE IN E COMMERCE DIRECTOR Exam Date: Exam Time: REPORT STATUS: Signed PROCEDURE: Central venogram. Conversion of temporary to tunneled central venous catheter. COMPARISON: None. INDICATIONS: Catheter malfunction. COMPLICATIONS: None. MEDICATIONS : None. BLOOD LOSS: Less than 5 cc. PROCEDURE: The existing dialysis catheter was noted. The existing catheter and surrounding skin were prepped and draped in usual sterile fashion. A 0.035 inch wire was advanced through the catheter. The catheter was removed. The skin and wire were prepped again. A vascular sheath was advanced over the wire. A digital subtracted central venogram was performed. The right internal jugular vein was stenotic and minimally opacified. The right external jugular vein was patent. Lidocaine was injected into the subcutaneous tissues on the right upper chest wall. Skin neck was made with a #11 blade. The catheter was tunneled to the vascular access site. A peel-away sheath was advanced over the wire. The wire and stylette were removed. The catheter was placed within the peel-away sheath. The peel-away sheath was removed. The catheter tip was positioned within the right atrium. The catheter ports demonstrated function with aspiration and flush of sterile saline. The catheter was secured to the skin with 3-0 Ethilon suture. The venous access site was closed with Dermabond. Sterile dressings were applied. The patient tolerated the procedure well. There no immediate complications. Patient was transferred to the post procedure area in stable unchanged condition from further monitoring. CONCLUSION: Successful conversion of the right external jugular temporary central venous catheter for a tunneled central venous hemodialysis catheter. 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 Dictated by: Kate Lockhart M.D. on 2017 at 14:04 Electronically approved by: Kate Lockhart M.D. on 2017 at 14:04 Dictated By: KATE LOCKHART MD 1402 Transcribed By: PHILLIP on 07/06/17 1406 COPY TO: LUIS A FRENCH MD IR CONSULT [address] [place] [address] Patient Name: TYLER BISHOP MR #: [id number] : 1955 Age/Sex: 62/M [id number] Req #: [id number] [facility] Physician: SOFÍA AGGARWAL MD Ordered by: LUIS A FRENCH MD Report #: [id number] Location: MED/SURG Room /Bed: [facility] Procedure: [id number] DX/IR CONSULT Exam Date: Exam Time: REPORT STATUS: Signed Date and Time: 07/01/2017 Procedure: 1. Thoracic venogram 2. Temporary hemodialysis catheter placement swager operator: Dr. 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 Blood pressure was monitored at 5 minute intervals. Additional Medications: None Fluoroscopy time: 5.6 minutes Dose-area Product: 558 cGycm2. Contrast used: 20 cc Isovue-300 Estimated blood loss: 20 cc Specimens: None Implants: 13 Moldovan 20 cm Trialysis catheter Condition at completion of procedure: stable Disposition: Returned to floor DISCUSSION: Informed consent was obtained and documented in the medical record after discussion of risks and benefits. The patient was placed in the supine position on the angiographic table. Preliminary sonographic evaluation of the right and left cervical regions was performed, revealing chronic occlusions of the bilateral internal jugular veins. The right external jugular vein was noted to be patent, evidenced by compressibility. The right cervical region was then prepped and draped in the standard sterile fashion. 1% lidocaine was infiltrated into the skin and subcutaneous tissues for local anesthesia. Then under continuous sonographic guidance, a 21-gauge micropuncture needle was used to access the right external jugular vein. A permanent sonographic image was stored in the medical record. A 0.0 1 8-in. wire was advanced centrally to the level of the clavicular head, at which point resistance was encountered. The needle was exchanged for a 5 Moldovan stiffened micropuncture sheath which was advanced over the wire to the level of the clavicular shaft. The wire and inner cannula were removed and thoracic venography was performed through the micropuncture sheath (see findings below). A 0.0 3 5-in. stiff hydrophilic wire was advanced through the micropuncture sheath and across the stenotic segment of the right external jugular vein and subsequently into the superior vena cava and finally the inferior vena cava. The micropuncture sheath was exchanged for a 5 Moldovan angled catheter which was advanced into the inferior vena cava. The stiff hydrophilic wire was then exchanged for a 0.0 3 5-in. Amplatz Super Stiff wire which was advanced into the inferior vena cava. The catheter was removed and the tract was sequentially dilated under fluoroscopic guidance. Finally, a 13 Moldovan, 20 cm triple-lumen hi flow central venous catheter was advanced over the wire under fluoroscopic guidance, to a depth of 19 cm. The wire was removed and the catheter tip was positioned in the upper right atrium. Each lumen was tested and showed adequate bidirectional flow. The 2 larger lumens were each packed with 2000 units of heparin. The smaller central lumen was flushed with sterile saline. The catheter was secured to the skin with monofilament nylon suture and a sterile dressing was applied. The patient tolerated the procedure well without immediate complication. FINDINGS: 1. 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 2. Patent right external jugular vein with short segment severe stenosis at the confluence with the subclavian vein. 3. Patent right subclavian, brachiocephalic vein, and superior vena cava. IMPRESSION: Successful thoracic venogram. Technically difficult, though ultimately successful placement of a 13 Moldovan, 20 cm triple-lumen hi flow central venous catheter (Trialysis catheter) by a right external jugular approach under sonographic and fluoroscopic guidance. Signed by: Dr. Chuck Coker M.D. on 07/01/2017 4:13 PM Dictated By: CHUCK COKER MD 0822 Transcribed By: PAULINA on 824 COPY TO: LUIS A FRENCH MD SPECIAL PROCEDURE IN E COMMERCE DIRECTOR [place] [address] Patient Name: TYLER BISHOP MR #: [id number] : 1955 Age/Sex: 62/M Req #: [id number] Adm Physician: SOFÍA AGGARWAL MD Ordered by: LUIS A FRENCH MD Report #: [id number] Location: MED/SURG Room/Bed: [facility] Procedure: [id number] IR/SPECIAL PROCEDURE IN E COMMERCE DIRECTOR Exam Date: Exam Time: REPORT STATUS: Signed Date and Time: 07/01/2017 Procedure: 1. Thoracic venogram 2. Temporary hemodialysis catheter placement swager operator: Dr. 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 Blood pressure was monitored at 5 minute intervals. Additional Medications: None Fluoroscopy time: 5.6 minutes Dose-area Product: 558 cGycm2. Contrast used: 20 cc Isovue-300 Estimated blood loss: 20 cc Specimens: None Implants: 13 Moldovan 20 cm Trialysis catheter Condition at completion of procedure: stable Disposition: Returned to floor DISCUSSION: Informed consent was obtained and documented in the medical record after discussion of risks and benefits. The patient was placed in the supine position on the angiographic table. Preliminary sonographic evaluation of the right and left cervical regions was performed, revealing chronic occlusions of the bilateral internal jugular veins. The right external jugular vein was noted to be patent, evidenced by compressibility. The right cervical region was then prepped and draped in the standard sterile fashion. 1% lidocaine was infiltrated into the skin and subcutaneous tissues for local anesthesia. Then under continuous sonographic guidance, a 21 -gauge micropuncture needle was used to access the right external jugular vein. A permanent sonographic image was stored in the medical record. A 0.0 1 8-in. wire was advanced centrally to the level of the clavicular head, at which point resistance was encountered. The needle was exchanged for a 5 Moldovan stiffened micropuncture sheath which was advanced over the wire to the level of the clavicular shaft. The wire and inner cannula were removed and thoracic venography was performed through the micropuncture sheath (see findings below). A 0.0 3 5-in. stiff hydrophilic wire was advanced through the micropuncture sheath and across the stenotic segment of the right external jugular vein and subsequently into the superior vena cava and finally the inferior vena cava. The micropuncture sheath was exchanged for a 5 Moldovan angled catheter which was advanced into the inferior vena cava. The stiff hydrophilic wire was then exchanged for a 0.0 3 5-in. Amplatz Super Stiff wire which was advanced into the inferior vena cava. The catheter was removed and the tract was sequentially dilated under fluoroscopic guidance. Finally, a 13 Moldovan, 20 cm triple-lumen hi flow central venous catheter was advanced over the wire under fluoroscopic guidance, to a depth of 19 cm. The wire was removed and the catheter tip was positioned in the upper right atrium. Each lumen was tested and showed adequate bidirectional flow. The 2 larger lumens were each packed with 2000 units of heparin. The smaller central lumen was flushed with sterile saline. The catheter was secured to the skin with monofilament nylon suture and a sterile dressing was applied. The patient tolerated the procedure well without immediate complication. FINDINGS: 1. 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 2. Patent right external jugular vein with short segment severe stenosis at the confluence with the subclavian vein. 3. Patent right subclavian, brachiocephalic vein, and superior vena cava. IMPRESSION: Successful thoracic venogram. Technically difficult, though ultimately successful placement of a 13 Moldovan, 20 cm triple-lumen hi flow central venous catheter (Trialysis catheter) by a right external jugular approach under sonographic and fluoroscopic guidance. Signed by: Dr. Chuck Coker M.D. on 07/01/2017 4:13 PM Dictated By: CHUCK COKER MD 4 Transcribed By: PAULINA on 07/04/17824 COPY TO: LUIS A FRENCH MD SPECIAL PROCEDURE IN E [employer]ER[employer] DIRECTOR [place] [address] Patient Name: TYLER BISHOP MR #: [id number] : 1955 Age/Sex: 62/M Req #: [id number] Adm Physician: SOFÍA AGGARWAL MD Ordered by: LUIS A FRENCH MD Report #: [id number] Location: MED/SURG Room/Bed: [facility] Procedure: [id number] IR/SPECIAL PROCEDURE IN E COMMERCE DIRECTOR Exam Date: Exam Time: REPORT STATUS: Signed Fistulogram June 30, 2017 Pre- Procedure Diagnosis: Right upper extremity AV fistula thrombosis Post- procedure Diagnosis: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 Manager Membership: Екатерина Braun Longitudinal Float Operator: None Sedation: None. Intravenous fentanyl was administered for pain control. Heart rate, rhythm and oxygen saturation were monitored in real-time by a dedicated nurse under my direct supervision. Blood pressure was monitored and 5 minute increments. 1% lidocaine was used for local anesthesia. Radiation Dose: Fluoroscopy time: minutes Estimate blood loss: 40 mL Blood administered: None Complications: None Implants/Grafts: None Specimen: None Procedure: Informed consent was obtained and the patient placed supine. A timeout was performed. Preliminary ultrasound of the right upper arm was performed. The AV fistula was prepped and draped in standard sterile fashion. Using ultrasound guidance antegrade access to the AV fistula was achieved with a 21-gauge needle. Needle was exchanged for a KUB catheter, which was used for pullback fistulogram (see findings below). 3000 units intravenous heparin was administered. The indwelling clot was laced with 4 mg TPA. Mechanical thrombectomy was performed with the AngioJet device. Subsequently, an 8 mm balloon was insufflated in the regions of focal stenosis along the proximal aspect of the fistula outflow. This resulted in resolution of thrombus in this segment. Attention was turned to the arterial anastomosis. Retrograde access was achieved with ultrasound guidance. The catheter catheter and Glidewire were advanced across the arteriovenous anastomosis. A 6 mm balloon was insufflated, demonstrating multifocal flow- limiting stenosis in the proximal segment. Additional thrombus at the proximal aspect of the fistula was pulled back into the fistula and pushed into the venous outflow. This resulted in a return to pulsatility in the proximal aspect of the AV fistula. Follow-up venogram demonstrated lack of antegrade flow from the proximal to the distal aspect of the fistula. Again, the 8 mm balloon was advanced to the region of stenosis (greater than 85% luminal narrowing), and prolonged insufflation performed up to 16mmHg pressure (beyond balloon burst pressure) without balloon failure. The high- grade stenosis proved recalcitrant to recurrent angioplasty. Subsequent evaluation revealed re-thrombosis of the proximal fistula conduit. Given the inability to resolve the high-grade stenosis and subsequent rapid rethrombosis the procedure was terminated. Neither high-pressure balloons nor a cutting balloon were available at the time of the procedure. The initial antegrade access site was closed with a [id number] Ethilon suture, with the distal retrograde access closed with manual compression. The findings were discussed with Dr. Mcmullen at the procedure conclusion. Findings : 1. Right brachial-brachial fistula. 2. Normal central venogram. 3. Multifocal stenosis of the AV fistula extending from the proximal through the distal segment. In particular, the distal segment stenosis was recalcitrant to repeated balloon angioplasty resulting in rapid rethrombosis after initial pharmacologic and mechanical thrombolysis and resumption of pulsatile flow to the proximal segment. Impression: The patient presented with acute thrombosis of the right upper extremity fistula. Initial declot was successful , with resumption of pulsatile flow to the proximal segment after mechanical and pharmacologic thrombectomy combined with proximal angioplasty. However, rapid rethrombosis occurred as a high-grade stenosis of the venous outflow ( at about the mid segment of the humerus) was recalcitrant to angioplasty. Plan: 1. The findings were discussed with Dr. Mcmullen. 2. Temporary dialysis catheter placement was deferred until vascular surgery evaluation for surgical revision. This report was generated with voice- recognition technology. Errors in water superintendent can occur. Please interpret accordingly and contact a radiologist if there are any questions regarding the report. Signed by: Dr. Rei Braun M.D. 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 Manager Membership: Екатерина Braun Longitudinal Float Operator: None Sedation: None. Intravenous fentanyl was administered for pain control. Heart rate, rhythm and oxygen saturation were monitored in real-time by a dedicated nurse under my direct supervision. Blood pressure was monitored and 5 minute increments. 1% lidocaine was used for local anesthesia. Radiation Dose: Fluoroscopy time: minutes Estimate blood loss : 40 mL Blood administered: None Complications: None Implants/Grafts: None Specimen: None Procedure: Informed consent was obtained and the patient placed supine. A timeout was performed. Preliminary ultrasound of the right upper arm was performed. The AV fistula was prepped and draped in standard sterile fashion. Using ultrasound guidance antegrade access to the AV fistula was achieved with a 21-gauge needle. Needle was exchanged for a KUB catheter, which was used for pullback fistulogram (see findings below). 3000 units intravenous heparin was administered. The indwelling clot was laced with 4 mg TPA. Mechanical thrombectomy was performed with the AngioJet device. Subsequently, an 8 mm balloon was insufflated in the regions of focal stenosis along the proximal aspect of the fistula outflow. This resulted in resolution of thrombus in this segment. Attention was turned to the arterial anastomosis. Retrograde access was achieved with ultrasound guidance. The catheter catheter and Glidewire were advanced across the arteriovenous anastomosis. A 6 mm balloon was insufflated, demonstrating multifocal flow- limiting stenosis in the proximal segment. Additional thrombus at the proximal aspect of the fistula was pulled back into the fistula and pushed into the venous outflow. This resulted in a return to pulsatility in the proximal aspect of the AV fistula. Follow-up venogram demonstrated lack of antegrade flow from the proximal to the distal aspect of the fistula. Again, the 8 mm balloon was advanced to the region of stenosis (greater than 85% luminal narrowing), and prolonged insufflation performed up to 16mmHg pressure (beyond balloon burst pressure) without balloon failure. The high- grade stenosis proved recalcitrant to recurrent angioplasty. Subsequent evaluation revealed re-thrombosis of the proximal fistula conduit. Given the inability to resolve the high-grade stenosis and subsequent rapid rethrombosis the procedure was terminated. Neither high-pressure balloons nor a cutting balloon were available at the time of the procedure. The initial antegrade access site was closed with a [id number] Ethilon suture, with the distal retrograde access closed with manual compression. The findings were discussed with Dr. Mcmullen at the procedure conclusion. Findings : 1. Right brachial-brachial fistula. 2. Normal central venogram. 3. Multifocal stenosis of the AV fistula extending from the proximal through the distal segment. In particular, the distal segment stenosis was recalcitrant to repeated balloon angioplasty resulting in rapid rethrombosis after initial pharmacologic and mechanical thrombolysis and resumption of pulsatile flow to the proximal segment. Impression: The patient presented with acute thrombosis of the right upper extremity fistula. Initial declot was successful , with resumption of pulsatile flow to the proximal segment after mechanical and pharmacologic thrombectomy combined with proximal angioplasty. However, rapid rethrombosis occurred as a high-grade stenosis of the venous outflow ( at about the mid segment of the humerus) was recalcitrant to angioplasty. Plan: 1. The findings were discussed with Dr. Mcmullen. 2. Temporary dialysis catheter placement was deferred until vascular surgery evaluation for surgical revision. This report was generated with voice- recognition technology. Errors in water superintendent can occur. Please interpret accordingly and contact a radiologist if there are any questions regarding the report. Signed by: Dr. Rei Braun M.D. on 06/30/2017 5:13 PM Dictated By: REI BRAUN MD 4 Transcribed By: PAULINA on 07/04/17824 COPY TO: PRERNA MCMULLEN MD
--- OUTSIDE RECORDS SUMMARY | 2017-08-11 21:30 | XMS REPORT | Clinical Summary ---
Author Author AVANI [facility] Address Unknown Phone Unavailable Care Team Providers Care Hvac Service Tech Name Role Phone PCP Unavailable Allergies Active Allergy Reactions Severity Noted Date Comments Codeine Shortness Of Breath High 07/06/2017 Morphine Shortness Of Breath High 07/06/2017 Hydrocodone-Acetaminophen Shortness Of Breath High 07/06/2017 Sulfamethoxazole-Trimetho Other (See Comments) Medium 07/06/2017 HTN prim Clindamycin Other (See Comments) Medium 07/06/2017 HTN Furosemide Other (See Comments) Medium 07/06/2017 HTN Lisinopril Other (See Comments) Low 07/06/2017 "retains potassium" Current Medications Prescription Sig. Disp. Refills Start End Date Status Date cloNIDine HCl (CATAPRES) Take 0.1 mg by mouth as Active 0.1 MG tablet needed. NIFEdipine (PROCARDIA-XL) Take 60 mg by mouth 2 Active 30 MG (OSM) 24 hr tablet (two) times daily. metoprolol (LOPRESSOR) 25 Take 25 mg by mouth 2 Active MG tablet (two) times daily as needed. insulin aspart Inject subcutaneously 2 07/07/19 Discontin protamine-insulin aspart (two) times daily with 18 ued (NOVOLOG MIX 70/30) 100 breakfast and dinner. unit/mL (70-30) Soln injection lisinopril Take 10 mg by mouth 07/07/19 Discontin (PRINIVIL,ZESTRIL) 10 MG daily. 18 ued tablet metoprolol (TOPROL-XL) Take 100 mg by mouth 07/07/19 Discontin 100 MG 24 hr tablet daily. 18 ued NIFEdipine (PROCARDIA) 10 Take 30 mg by mouth 2 07/07/19 Discontin MG capsule (two) times daily . 18 ued cloNIDine (CATAPRES-TTS) Place 1 patch onto the 07/07/19 Discontin 0.1 mg/24 hr patch skin once a week. 18 ued atorvastatin (LIPITOR) 20 Take 20 mg by mouth 07/07/19 Discontin MG tablet daily. 18 ued sodium bicarbonate 650 MG Take 1 tablet by mouth 2 07/07/19 Discontin tablet (two) times daily. 18 ued metoclopramide HCl Take 5 mg by mouth 4 07/10/19 Discontin (REGLAN) 10 MG tablet (four) times daily as 18 ued needed . mupirocin (BACTROBAN) 2 % Apply topically daily for 22 g 0 07/11/19 07/18/19 ointment 7 days. 18 18 Active Problems Problem Noted Date Oropharyngeal dysphagia 07/08/2017 Diarrhea 07/08/2017 Tremor 07/06/2017 ESRD (end stage renal disease) on dialysis ([facility]) 07/06/2017 PAD (peripheral artery disease) ([facility]) 07/06/2017 Hx of right BKA ([facility]) 07/06/2017 Diabetic ulcer of left midfoot associated with type 2 diabetes mellitus 02/2018 ([facility]) Type 2 diabetes mellitus with complication, with long-term current use of insulin ([facility]) Encounters Date Type Specialty Care Team Description 07/06/2017 [facility] T[facility] (Primary Dx);ESRD - Encounter Danis Vargas MD (end stage renal disease) 07/09/2017 Derick Robertson on dialysis ([facility]);Diabetic nephropathy associated with type 2 diabetes mellitus ([facility]);Essential hypertension;S/P BKA (below knee amputation), right ([facility]);Diabetic polyneuropathy associated with type 2 diabetes mellitus ([facility]);Coronary artery disease involving [place] coronary artery of [place] heart without angina pectoris 07/06/2017 Orders Only General Internal Medicine after 08/10/2016 Social History Tobacco Use Types Packs/Day Years Used Date Unknown If Ever Smoked Smokeless Tobacco: Never Used Alcohol Use Drinks/Week oz/Week Comments No Sex Assigned at Date Recorded Not on file Last Filed Vital Signs Vital Sign Reading Time Taken Blood Pressure 187/85 07/09/2017 3:51 PM CDT Pulse 81 07/09/2017 3:51 PM CDT Temperature 36.2 C (97.1 F) 07/09/2017 10:40 AM CDT Respiratory Rate 20 07/09/2017 3:51 PM CDT Oxygen Saturation 96% 07/09/2017 3:51 PM CDT Inhaled Oxygen - - Concentration Weight 104.3 kg (230 lb) 07/06/2017 3:17 AM CDT Height 180.3 cm (5' 11") 07/06/2017 3:17 AM CDT Body Mass Index 32.08 07/06/2017 3:17 AM CDT Plan of Treatment Not on file Results * RHYTHM STRIP - SCAN (07/11/2017 10:40 AM) * POC-Glucose meter (07/09/2017 7:41 AM) Only the most recent of 10 results within the time period is included. Component Value Ref Range POC-Glucose Meter 140 (H)Comment: TESTED AT [address] 70 - 110 mg /dL [place] [id number] Specimen Performing Laboratory Blood [facility] [address] [address] * Hemodialysis (07/08/2017 11:26 AM) Only the most recent of 2 results within the time period is included. Narrative Aiden Wyatt RN 07/08/2017 11:26 AM Lab Results Component Value Date WBC 8.3 07/07/2017 HGB 8.2 (L) 07/07/2017 HCT 26.8 (L) 07/07/2017 MCV 94.0 (H) 07/07/2017 PLT 255 07/07/2017 Lab Results Component Value Date GLUCOSE 103 07/07/2017 CALCIUM 8.8 07/07/2017 NA 136 07/07/2017 K 5.3 (H) 07/07/2017 CO2 21 (L) 07/07/2017 CL 101 07/07/2017 BUN 57 (H) 07/07/2017 CREATININE 8.71 (H) 07/07/2017 Lab Results Component Value Date HEPBSAG Nonreactive 07/07/2017 Vitals: 07/08/17 1049 BP: 172/74 Pulse: 85 Resp: Temp: 98.2 F (36.8 C) SpO2: HD terminated early per patients request. Dr. Christensen notified and ok with it. UF net 2.1L. * Urinalysis w/Microscopic - Clean Catch (07/08/2017 6:21 AM) Component Value Ref Range Color, UA Yellow Clarity, UA Hazy Specific [place], UA 1.011 1.001 - 1.035 pH, UA 8.0 5.0 - 8.0 Protein, UA 600 mg/dL (A) Negative Glucose, UA 500 mg/dL (A) Negative Ketones, UA Negative Negative Bilirubin, UA Negative Negative Blood, UA Small (A) Negative Nitrite, UA Negative Negative Leukocytes, UA Large (A) Negative Urobilinogen, UA 0.2 0.2 - 1.0 mg/dL RBC, UA 23 /HPF WBC, UA 743 /HPF Bacteria, UA Moderate Squam Epithel, UA 1 /HPF Specimen Source Specimen Performing Laboratory Urine [address] [address] * Urine culture (07/08/2017 6:21 AM) Component Value Ref Range Result >100,000 col/mL Klebsiella pneumoniae ssp pneumoniae (A) Result >100,000 col/mL Escherichia coli (A)Comment: ESBL Positive Result >100,000 col/mL Vancomycin resistant Enterococcus species (A) Specimen Performing Laboratory Urine - Urine, Voided [address] [address] Narrative <10,000 col/mL Gram negative dora of a 3rd type Organism Antibiotic Method Susceptibility Klebsiella pneumoniae ssp Amikacin <=2: Susceptible pneumoniae Klebsiella pneumoniae ssp Ampicillin + Sulbactam 4: Susceptible pneumoniae Klebsiella pneumoniae ssp Aztreonam <=1: Susceptible pneumoniae Klebsiella pneumoniae ssp Cefepime <=1: Susceptible pneumoniae Klebsiella pneumoniae ssp Cefoxitin <=4: Susceptible pneumoniae Klebsiella pneumoniae ssp Ceftazidime <=1: Susceptible pneumoniae Klebsiella pneumoniae ssp Ceftriaxone <=1: Susceptible pneumoniae Klebsiella pneumoniae ssp Ertapenem <=0.5: Susceptible pneumoniae Klebsiella pneumoniae ssp Gentamicin <=1: Susceptible pneumoniae Klebsiella pneumoniae ssp Levofloxacin <=0.12: Susceptible pneumoniae Klebsiella pneumoniae ssp Meropenem <=0.25: Susceptible pneumoniae Klebsiella pneumoniae ssp Nitrofurantoin 64: Resistant pneumoniae Klebsiella pneumoniae ssp Piperacillin + Tazobactam <=4: Susceptible pneumoniae Klebsiella pneumoniae ssp Tetracycline <=1: Susceptible pneumoniae Klebsiella pneumoniae ssp Tobramycin <=1: Susceptible pneumoniae Klebsiella pneumoniae ssp Trimethoprim + <=20: Susceptible pneumoniae Sulfamethoxazole Escherichia coli Amikacin <=2: Susceptible Escherichia coli Ampicillin + Sulbactam Resistant Escherichia coli Aztreonam Resistant Escherichia coli Cefepime Resistant Escherichia coli Cefoxitin >=64: Resistant Escherichia coli Ceftazidime 16: Resistant Escherichia coli Ceftriaxone Resistant Escherichia coli Ertapenem <=0.5: Susceptible Escherichia coli Gentamicin <=1: Susceptible Escherichia coli Levofloxacin >=8: Resistant Escherichia coli Meropenem <=0.25: Susceptible Escherichia coli Nitrofurantoin <=16: Susceptible Escherichia coli Piperacillin + Tazobactam 64: Resistant Escherichia coli Tetracycline <=1: Susceptible Escherichia coli Tobramycin <=1: Susceptible Escherichia coli Trimethoprim + <=20: Susceptible Sulfamethoxazole Vancomycin resistant Ampicillin >=32: Resistant Enterococcus species Vancomycin resistant Linezolid 2: Susceptible Enterococcus species Vancomycin resistant Nitrofurantoin 128: Resistant Enterococcus species Vancomycin resistant Tetracycline >=16: Resistant Enterococcus species Vancomycin resistant Vancomycin >=32: Resistant Enterococcus species Vancomycin resistant Daptomycin 3: Susceptible Enterococcus species * EEG AWAKE AND DROWSY (07/07/2017 5:38 PM) Specimen Performing Laboratory GE RIS Narrative Date(s) of EE07/07/17 DATE OF REPORT: 07/07/17 ACC: [id number] EEG Number: [id number] Test Location: Inpatient Room Start time: 171 Stop time: 173 ICD-10: R56.9 CPT Code: 89999 HISTORY: 62 year old male with ESRD secondary to DM/HTN, on HD for last 2 years. Admitted with tremors in all extremities after a repair of right upper arm AVF on 06/30 at [facility]. EEG to further evaluate. MEDICATIONS THAT COULD [...] regulated. More anteriorly, low voltage frontocentral beta predominated.Drowsiness was characterized by alpha attenuation and increased frontocentral theta.Stage 2 sleep was reached characterized by symmetric [...] discharges does not exclude the possibility of epilepsy.If the clinical suspicion of epilepsy remains, consider additional EEG recordings. The patient had prominent bilateral upper extremity tremors without EEG correlate. Sheldon Izaguirre MD, MS Clinical Neurophysiology/Epilepsy Attending Procedure Note Interface, External Ris In - 07/07/2017 6:01 PM CDT Date(s) of EE07/07/17 DATE OF REPORT: 07/07/17 ACC: [id number] EEG Number: [id number] Test Location: Inpatient Room Start time: 1717 Stop time: 1738 ICD-10: R56.9 CPT Code: 37944 HISTORY: 62 year old male with ESRD secondary to DM/HTN, on HD for last 2 years. Admitted with tremors in all extremities after a repair of right upper arm AVF on 06/30 at [facility]. EEG to further evaluate. MEDICATIONS THAT COULD [...] Sheldon Izaguirre MD, MS Clinical Neurophysiology/Epilepsy Attending * CBC with platelet count + automated diff (07/07/2017 8:50 AM) Only the most recent of 2 results within the time period is included. Component Value Ref Range WBC 8.3 3.5 - 10.5 K/ L RBC 2.85 (L) 4.63 - 6.08 M/ L Hemoglobin 8.2 (L) 13.7 - 17.5 GM/DL Hematocrit 26.8 (L) 40.1 - 51.0 % MCV 94.0 (H) 79.0 - 92.2 fL MCH 28.8 25.7 - 32.2 pg MCHC 30.6 (L) 32.3 - 36.5 GM/DL RDW 16.2 (H) 11.6 - 14.4 % Platelets 255 150 - 450 K/CU MM MPV 8.6 (L) 9.4 - 12.4 fL nRBC 0 0 - 0 /100 WBC % Neutros 74 % % Lymphs 14 % % Monos 7 % % Eos 4 % % Baso 1 % # Neutros 6.10 (H) 1.78 - 5.38 K/ L # Lymphs 1.17 (L) 1.32 - 3.57 K/ L # Monos 0.55 0.30 - 0.82 K/ L # Eos 0.35 0.04 - 0.54 K/ L # Baso 0.09 (H) 0.01 - 0.08 K/ L Immature 0 0 - 1 % Granulocytes-Relative Specimen Performing Laboratory Blood - Line, Venous [address] [address] * Hepatitis B surface antigen (07/07/2017 8:50 AM) Component Value Ref Range hepatitis B Surface Ag Nonreactive Nonreactive Specimen Performing Laboratory Blood - Line, Venous [address] [address] * CBC with platelet count + automated diff (07/07/2017 8:50 AM) Only the most recent of 2 results within the time period is included. Specimen Performing Laboratory Blood Narrative The following orders were created for panel order CBC with platelet count + automated diff. Procedure Abnormality Status --------- - ------ CBC with platelet count ...[[id number]]AbnormalFinal result Please view results for these tests on the individual orders. * Phosphorus (07/07/2017 8:50 AM) Component Value Ref Range Phosphorus 7.4 (H) 2.3 - 4.7 mg/dL Specimen Performing Laboratory Blood - Line, [place] [address] * Comprehensive metabolic panel (07/07/2017 8:50 AM) Component Value Ref Range Protein, Total 7.6 6.0 - 8.3 gm/dL Albumin 3.6 3.5 - 5.0 g/dL Alkaline Phosphatase 66 40 - 150 U/L Total Bilirubin 0.4 0.2 - 1.2 mg/dL Sodium 136 136 - 145 meq/L Potassium 5.3 (H) 3.5 - 5.1 meq/L Chloride 101 98 - 107 meq/L CO2 21 (L) 22 - 29 meq/L BUN 57 (H) 7 - 21 mg/dL Creatinine 8.71 (H) 0.57 - 1.25 mg/dL Glucose 103 70 - 105 mg/dL Calcium 8.8 8.4 - 10.2 mg/dL AST 10 5 - 34 U/L ALT <6 (L) 6 - 55 U/L EGFR 6Comment: ESTIMATED GFR IS NOT ACCURATE mL/min/1.73 sq m CREATININE CLEARANCE IN PREDICTING GLOMERULAR FILTRATION RATE. ESTIMATED GFR IS NOT APPLICABLE FOR DIALYSIS PATIENTS. Specimen Performing Laboratory Blood - Line, Venous [place] [id number] * PERIPHERAL VASCULAR REPORT - SCAN (07/07/2017 7:22 AM) * Arterial Doppler leg, Left (07/06/2017 7:00 PM) Component Value Ref Range Ejection Fraction Specimen Performing Laboratory SLE ECHO HEARTLAB MKCKESSON CPACS Impressions Left Impression 1. The common femoral and superficial femoral arteries are patent with triphasic/biphasic Doppler waveforms. 2. The profunda femoral, popliteal and anterior tibial arteries are patent with monophasic Doppler waveforms and diffuse calcification. 3. The posterior tibial artery is patent with diffuse calcification and low monophasic Doppler waveforms. 4. There is >50% stenosis in the distal peroneal artery (182cm/sec). 5. The PT pressure is >254 mmHg and the DP pressure is 192 mmHg with an ANN MARIE of 1.33, within non compressible range. 6. The great toe pressure is 50 mmHg with abnormal TBI of 0.35. 7. The digits have adequate flow by PPG waveforms. Conclusions Summary Arterial pressures and Doppler analysis were performed on the left lower extremity. Adequate Doppler waveforms were obtained. The common femoral and superficial femoral arteries were patent with triphasic/biphasic Doppler waveforms. The profunda femoral, popliteal, and anterior tibial arteries were patent with monophasic Doppler waveforms and diffuse calcification. The posterior tibial artery was patent with diffuse calcification and low monophasic Doppler waveforms. There was >50% stenosis in the distal peroneal artery. The PT and DP ANN MARIE's were within non compressible range. The great toe pressure and TBI were abnormal. The digits had adequate flow by PPG waveforms. Signature Velocities are measured in cm/s ; Diameters are measured in cm LE Duplex Measurements Right Left + + + -----+ + + + +--------- ---------+ + !Location ! !PSV !EDV !Waveform! !PSV !EDV !Waveform ! + + + -----+ + + + +--------- ---------+ + !Mid Common Femoral ! !169 !19.6!Triphasic ! + + + + +---- + !Prox PFA ! !89!13.1! Biphasic! + + + + +---- + !Prox SFA ! !237 !31.4! Triphasic ! + + + + +---- + !Mid SFA ! !118 !18.7! Biphasic! + + + + +---- + !Dist SFA ! !144 !21.6! Biphasic! + + + + +---- + !Prox Popliteal ! !206 !39.3! Monophasic! + + + + +---- + !Dist Popliteal ! !124 !! Monophasic! + + + + +---- + !Prox PIG FARM MANAGER ! !131 ! !Monophasic! + + + + +---- + !Mid PIG FARM MANAGER ! !34.4! !Monophasic! + + + + +---- + !Dist PIG FARM MANAGER ! !17.9! !Monophasic! + + + + +---- + !Prox DIANA ! !81.2! !Monophasic! + + + + +---- + !Mid DIANA ! !85.6! !Monophasic! + + + + +---- + !Dist DIANA ! !91.1! !Monophasic! + + + + +---- + !Dist Peroneal ! !182 !! Monophasic! + + + + +---- + Narrative [facility] - Lower Extremity Arterial Duplex Demographics Patient Name TYLER BISHOP Date of Study07/06/2017 [id number] Age 62 Visit Number [id number] Gender Male Accession Number [id number] Date of Birth1955 [facility] [facility]mond[facility]audioidTessie Stark MD, CHRISTINA SALGUEROT Procedure Type of Study: Extremities Arteries: Lower Extremities Arterial Duplex, ARTERIAL DOPPLER LEG, LEFT. Indications for Study:PAD. Patient Status:TODAY. Study Location:Portable. Technical Quality:Adequate visualization. Risk Factors History of Disease + + + + !Diagnosis!Date!Comments ! + + + + !History/Risk Factors:!07/06/2017!ESRD ! ! !!PAD ! ! !!RIGHT BKA ! ! !!DM ! ! !!HTN ! ! !!left foot chronic ulcer! ! !!S/P resection of left metatarsal ! + + + + Procedure Note Interface, External Ris In - 07/07/2017 4:43 AM CDT [facility] - Lower Extremity Arterial Duplex Demographics Patient Name TYLER BISHOP Date of Study 07/06/2017 Age 62 Visit Number [id number] Gender Male Accession Number [id number] Date of 1955 [facility] Room Number 960 Physician [employer] Account Manager Aleksandr Vickers RVS Physician CHRISTINA AC RVT Procedure Type of Study: Extremities Arteries: Lower Extremities Arterial Duplex, ARTERIAL DOPPLER LEG, LEFT. Indications for Study:PAD. Patient Status:TODAY. Study Location:Portable. Technical Quality:Adequate visualization. Risk Factors History of Disease + + + + !Diagnosis !Date !Comments ! + + + + !History/Risk Factors: !07/06/2017!ESRD ! ! ! !PAD ! ! ! !RIGHT BKA 01/2017 ! ! ! !DM ! ! ! !HTN ! ! ! !left foot chronic ulcer ! ! ! !S/P resection of left metatarsal ! + + + + Impressions Left Impression 1. The common femoral and superficial femoral arteries are patent with triphasic/biphasic Doppler waveforms. 2. The profunda femoral, popliteal and anterior tibial arteries are patent with monophasic Doppler waveforms and diffuse calcification. 3. The posterior tibial artery is patent with diffuse calcification and low monophasic Doppler waveforms. 4. There is >50% stenosis in the distal peroneal artery (182cm/sec). 5. The PT pressure is >254 mmHg and the DP pressure is 192 mmHg with an ANN MARIE of 1.33, within non compressible range. 6. The great toe pressure is 50 mmHg with abnormal TBI of 0.35. 7. The digits have adequate flow by PPG waveforms. Conclusions Summary Arterial pressures and Doppler analysis were performed on the left lower extremity. Adequate Doppler waveforms were obtained. The common femoral and superficial femoral arteries were patent with triphasic/biphasic Doppler waveforms. The profunda femoral, popliteal, and anterior tibial arteries were patent with monophasic Doppler waveforms and diffuse calcification. The posterior tibial artery was patent with diffuse calcification and low monophasic Doppler waveforms. There was >50% stenosis in the distal peroneal artery. The PT and DP ANN MARIE's were within non compressible range. The great toe pressure and TBI were abnormal. The digits had adequate flow by PPG waveforms. Signature Velocities are measured in cm/s ; Diameters are measured in cm LE Duplex Measurements Right Left + + + -----+ + + + +--------- ---------+ + !Location ! !PSV !EDV !Waveform ! !PSV !EDV !Waveform ! + + + -----+ + + + +--------- ---------+ + !Mid Common Femoral ! !169 !19.6 !Triphasic ! + + + +-------- + + !Prox PFA ! !89 !13.1 !Biphasic ! + + + +-------- + + !Prox SFA ! !237 !31.4 !Triphasic ! + + + +-------- + + !Mid SFA ! !118 !18.7 !Biphasic ! + + + +-------- + + !Dist SFA ! !144 !21.6 !Biphasic ! + + + +-------- + + !Prox Popliteal ! !206 !39.3 !Monophasic ! + + + +-------- + + !Dist Popliteal ! !124 ! !Monophasic ! + + + +-------- + + !Prox PIG FARM MANAGER ! !131 ! !Monophasic ! + + + +-------- + + !Mid PIG FARM MANAGER ! !34.4 ! !Monophasic ! + + + +-------- + + !Dist PIG FARM MANAGER ! !17.9 ! !Monophasic ! + + + +-------- + + !Prox DIANA ! !81.2 ! !Monophasic ! + + + +-------- + + !Mid DIANA ! !85.6 ! !Monophasic ! + + + +-------- + + !Dist DIANA ! !91.1 ! !Monophasic ! + + + +-------- + + !Dist Peroneal ! !182 ! !Monophasic ! + + + +-------- + + * MR brain without IV contrast (07/06/2017 5:58 PM) Specimen Performing Laboratory RIS Narrative FINAL REPORT MRI brain without contrast 07/06/2017 6:03 PM CLINICAL INDICATION: uncontrolled body tremors TECHNIQUE: Multiplanar, multisequence MR imaging of the brain was performed utilizing the following imaging sequences: Axial T1, T2, FLAIR, GRE, and DWI; sagittal and coronal [...] No acute intracranial abnormality. Signed: Jose Chirinos MD Report Verified Date/Time:07/06/2017 18:05:27 Reading Location: [facility] Radiology Reading Room Procedure Note Interface, External Ris In - 07/06/2017 6:07 PM CDT FINAL REPORT MRI brain without contrast 07/06/2017 6:03 PM CLINICAL INDICATION: uncontrolled body tremors TECHNIQUE: Multiplanar, multisequence MR imaging of the brain was performed utilizing the following imaging sequences: Axial T1, T2, FLAIR, GRE, and DWI; sagittal and coronal [...] No acute intracranial abnormality. Signed: Jose Chirinos MD Report Verified Date/Time: 07/06/2017 18:05:27 Reading Location: [facility] Radiology Reading Room * XR foot 3 views left (07/06/2017 12:21 PM) Specimen Performing Laboratory GE RIS Narrative FINAL REPORT Foot, left, three views INDICATION: Osteomyelitis, [...] Vascular calcifications are present. Signed: Consuelo Francis MD Report Verified Date/Time:07/06/2017 12:48:52 Reading Location: [facility] Radiology Reading Room Procedure Note Interface, External Ris In - 07/06/2017 3:30 PM CDT FINAL REPORT Foot, left, three views INDICATION: Osteomyelitis, [...] Vascular calcifications are present. Signed: Consuelo Francis MD Report Verified Date/Time: 07/06/2017 12:48:52 Reading Location: [facility] Radiology Reading Room * ED ECG Interpretation (07/06/2017 6:20 AM) Narrative Ruben Sprague MD 07/06/20176:20 AM ECG/EKG Interpretation Date/Time: 07/06/2017 4:54 AM Performed by: RUBEN SPRAGUE Authorized by: RUBEN SPRAGUE The ECG was interpreted by ED physician. There was no previous ECG available for comparison. The ECG is interpreted as sinus rhythm. Rate is normal rate. Abnormal conduction noted: right bundle branch block and 1st degree. [place] is normal. Clinical Impression: non-specific ECGECG reviewed and does not meet STEMI criteria. Patient tolerance: Patient tolerated the procedure well with no immediate complications * PT/aPTT (07/06/2017 4:52 AM) Component Value Ref Range Protime 15.9 (H) 11.7 - 14.7 seconds INR 1.3 <=5.9 PTT 27.3 22.5 - 36.0 seconds Specimen Performing Laboratory Blood [place] [id number] Narrative RECOMMENDED COUMADIN/WARFARIN INR THERAPY RANGES STANDARD DOSE: 2.0 - 3.0 Includes: PROPHYLAXIS for venous thrombosis, systemic embolization; TREATMENT for venous thrombosis and/or pulmonary embolus. HIGH RISK: Target INR is 2.5-3.5 for patients with mechanical heart valves. * Troponin I (not available at [facility] [place]) (07/06/2017 4:52 AM) Component Value Ref Range Troponin I 0.02 0.00 - 0.03 ng/mL Specimen Performing Laboratory Blood [address] [address] Narrative Troponin I (TnI) levels must be interpreted [...] failure, acidosis, acute neurological disease, and persistent tachyarrhythmia. * Creatine Kinase (CK), Total and MB (not available at [facility] [place]) (07/06 4:52 AM) Component Value Ref Range Total CK 38 29 - 200 U/L CK-MB 0.9 0.0 - 6.6 ng/mL MB Relative Index 2.4 % Specimen Performing Laboratory Blood [address] [address] Narrative CK-MB Reference Range: <6.7Normal 6.7-10.0Borderline >10.0 Abnormal * Basic metabolic panel (Na, K+, Cl, CO2, Glu, Ca, BUN, Cr) (07/06/2017 4:52 AM ) Component Value Ref Range Sodium 136 136 - 145 meq/L Potassium 5.3 (H) 3.5 - 5.1 meq/L Chloride 102 98 - 107 meq/L CO2 19 (L) 22 - 29 meq/L BUN 49 (H) 7 - 21 mg/dL Creatinine 7.81 (H) 0.57 - 1.25 mg/dL Glucose 122 (H) 70 - 105 mg/dL Calcium 8.9 8.4 - 10.2 mg/dL EGFR 7Comment: ESTIMATED GFR IS NOT ACCURATE mL/min/1.73 sq m CREATININE CLEARANCE IN PREDICTING GLOMERULAR FILTRATION RATE. ESTIMATED GFR IS NOT APPLICABLE FOR DIALYSIS PATIENTS. Specimen Performing Laboratory Blood [address] [address] * Blood culture (07/06/2017 4:51 AM) Component Value Ref Range Result No growth in 5 days Specimen Performing Laboratory Blood - Line, Venous [address] [address] * ECG 12 lead (07/06/2017 4:47 AM) Specimen Performing Laboratory GE MUSE Narrative Ventricular Rate 90 BPM Atrial Rate 90 BPM P-R Interval 216 ms QRS Duration 146 ms Q-T Interval 412 ms QTC Calculation(Bazett) 504 ms P [place] 74 degrees R [place] 57 degrees T [place] -20 degrees Atrial flutter with variable block Right bundle branch block T wave abnormality, consider inferior ischemia Abnormal ECG When compared with ECG of 09-JUL-2010 00:54, Right bundle branch block is now Present Confirmed by MD [place] Roberto ([id number]) on 07/06/2017 10:15:51 AM Procedure Note Interface, External Ris In - 07/06/2017 10:15 AM CDT Ventricular Rate 90 BPM Atrial Rate 90 BPM P-R Interval 216 ms QRS Duration 146 ms Q-T Interval 412 ms QTC Calculation(Bazett) 504 ms P [place] 74 degrees R [place] 57 degrees T [place] -20 degrees Atrial flutter with variable block Right bundle branch block T wave abnormality, consider inferior ischemia Abnormal ECG When compared with ECG of 09-JUL-2010 00:54, Right bundle branch block is now Present Confirmed by MD Abdiel, Adam ([id number]) on 07/06/2017 10:15:51 AM * CT brain without IV contrast (07/06/2017 4:26 AM) Specimen Performing Laboratory [facility] RIS Narrative FINAL REPORT CT, BRAIN, WITHOUT CONTRAST INDICATION: "Cerebral ischemia slurred speech SHAKING" TECHNIQUE: Noncontrast axial imaging was obtained from the vertex to the skull base. Axial images were reconstructed using a bone algorithm. DOSE REDUCTION: Dose modulation, iterative reconstruction, and/or weight-based adjustment of the mA/kV was utilized to reduce the radiation dose to as low as reasonably achievable. COMPARISON: None. FINDINGS: Calcification of the globus pallidi. Midline structures and posterior fossa within normal limits. No subacute territorial infarction or hyperdense thrombus. No acute intracranial hemorrhage. No acute hydrocephalus. Intact calvarium. Symmetric globes. The paranasal sinuses and mastoid air cells are well-aerated. IMPRESSION: No acute intracranial abnormality. Signed: Janna Jeffries MD Report Verified Date/Time:07/06/2017 04:32:28 Reading Location: [address] Transitional Reading Room Procedure Note Interface, External Ris In - 07/06/2017 4:34 AM CDT FINAL REPORT CT, BRAIN, WITHOUT CONTRAST INDICATION: "Cerebral ischemia slurred speech SHAKING" TECHNIQUE: Noncontrast axial imaging was obtained from the vertex to the skull base. Axial images were reconstructed using a bone algorithm. DOSE REDUCTION: Dose modulation, iterative reconstruction, and/or weight-based adjustment of the mA/kV was utilized to reduce the radiation dose to as low as reasonably achievable. COMPARISON: None. FINDINGS: Calcification of the globus pallidi. Midline structures and posterior fossa within normal limits. No subacute territorial infarction or hyperdense thrombus. No acute intracranial hemorrhage. No acute hydrocephalus. Intact calvarium. Symmetric globes. The paranasal sinuses and mastoid air cells are well-aerated. IMPRESSION: No acute intracranial abnormality. Signed: Janna Jeffries MD Report Verified Date/Time: 07/06/2017 04:32:28 Reading Location: [address] Transitional Reading Room * XR chest 2 views (07/06/2017 3:52 AM) Specimen Performing Laboratory GE RIS Narrative FINAL REPORT RAD, CHEST, 2 VIEWS INDICATION: CHILLS SHAKING COMPARISON: Chest x-ray in 2010 TECHNIQUE: Frontal and lateral views of the chest. FINDINGS: Right IJ approach dialysis catheter terminates in the proximal right atrium. Prominent cardiac silhouette. No overt consolidative or congestive change. No acute osseous abnormality. IMPRESSION: No acute cardiopulmonary abnormality. Signed: Janna Jeffries MD Report Verified Date/Time:07/06/2017 04:17:31 Reading Location: [address] Transitional Reading Room Procedure Note Interface, External Ris In - 07/06/2017 4:19 AM CDT FINAL REPORT RAD, CHEST, 2 VIEWS INDICATION: CHILLS SHAKING COMPARISON: Chest x-ray in 2010 TECHNIQUE: Frontal and lateral views of the chest. FINDINGS: Right IJ approach dialysis catheter terminates in the proximal right atrium. Prominent cardiac silhouette. No overt consolidative or congestive change. No acute osseous abnormality. IMPRESSION: No acute cardiopulmonary abnormality. Signed: Janna Jeffries MD Report Verified Date/Time: 07/06/2017 04:17:31 Reading Location: [address] Transitional Reading Room after 08/10/2016
[2017-08-11 21:40] LABS: BASOPHILS # (AUTO) 0.1 (0.0-0.1); BASOPHILS % 0.8 % (0.0-1.0); EOSINOPHILS # (AUTO) 0.2 (0.0-0.4); EOSINOPHILS % 2.3 % (0.0-6.0); LYMPHOCYTES # (AUTO) 1.1 (1.0-3.2); LYMPHOCYTES % 14.4 % (18.0-39.1); MEAN CORPUSCULAR HEMOGLOBIN 27.4 pg (28-32); MEAN CORPUSCULAR VOLUME 94.7 fL (81-99); MONOCYTES # (AUTO) 0.6 (0.2-0.8); MONOCYTES % 8.3 % (4.4-11.3); NEUTROPHILS # (AUTO) 5.4 (2.1-6.9); NEUTROPHILS % 73.4 % (38.7-80.0); PLATELET COUNT 261 x10e3/uL (140-360); RED BLOOD COUNT 2.26 x10e6/uL (4.3-5.7); RED CELL DISTRIBUTION WIDTH 16.8 % (11.7-14.4)
[2017-08-11 21:42] LABS: HEMOGLOBIN 6.2 g/dL (14.0-18.0)
[2017-08-11 21:43] LABS: HEMATOCRIT 21.4 % (38.2-49.6)
[2017-08-11 21:57] LABS: ALBUMIN 2.7 g/dL (3.5-5.0); ALBUMIN/GLOBULIN RATIO 0.5 (0.8-2.0); ALKALINE PHOSPHATASE 67 IU/L (40-150); BLOOD UREA NITROGEN 15 mg/dL (7-26); BUN/CREATININE RATIO 5 (6-25); CALCIUM 9.5 mg/dL (8.4-10.2); CARBON DIOXIDE 31 mmol/L (22-29); CHLORIDE 93 mmol/L (98-107); CREATININE, SERUM 3.28 mg/dL (0.72-1.25); EST GLOMERULAR FILTRATION RATE 19 ML/MIN (60-); GLUCOSE 203 mg/dL (74-118); SODIUM 135 mmol/L (136-145)
[2017-08-11 21:59] LABS: ALANINE AMINOTRANSFERASE < 6 IU/L (0-55)
--- NOTE | 2017-08-11 22:29 | Diagnostic Imaging Report ---
EXAMINATION: CHEST SINGLE (PORTABLE) INDICATION: Shortness of breath COMPARISON: 11/21/2015 FINDINGS: TUBES and LINES: Right IJ dual-lumen dialysis catheter with tip overlying the right atrium. LUNGS: Lungs are not well inflated. There are bibasilar atelectasis. There is mild prominence of the central pulmonary vasculature, consistent with pulmonary venous congestion. PLEURA: No pleural effusion or pneumothorax. HEART AND MEDIASTINUM: The cardiomediastinal silhouette is unremarkable. BONES AND SOFT TISSUES: No acute osseous lesion. Soft tissues are unremarkable. UPPER ABDOMEN: No free air under the diaphragm. IMPRESSION: No acute thoracic abnormality. Signed by: Dr. Dayton Proctor M.D. on 08/11/2017 10:19 PM
--- OUTSIDE RECORDS SUMMARY | 2017-08-11 23:13 | XMS REPORT | Clinical Summary ---
Author Author [facility] Organization [facility] Address Unknown Phone Unavailable Care Team Providers Care Information Lead Name Role Phone Jesus Corbin MD PCP [...] capsule (three) times a week. 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 Osteomyelitis [...] Only Cardiovascular Adelaida Izquierdo MA Atherosclerosis of [place] artery of left lower extremity with intermittent claudication (Primary Dx); Peripheral vascular disorder 05/03/2017 Procedure Pass General Surgery 04/26/2017 Procedure Pass General Surgery 04/25/2017 [facility] General Surgery Rema Alexander MD Diabetic ulcer of left - Encounter Jesus Corbin MD midfoot associated with 05/17/2017 diabetes mellitus due to underlying condition, unspecified ulcer stage (Primary Dx); Pain; Open wnd of foot, left, subsequent encounter; Chronic osteomyelitis of left foot 04/04/2017 Emergency Emergency Medicine Ayala Jenkins Hyperkalemia (Primary Dx) Franc Gamino MD 03/09/2017 [facility] Destiny Gonzalez 02/23/2017 Anesthesia [...] Tesha Fernandes MD Amputation, Below Knee-Right 01/27/2017 [facility] General Internal Medicine Domingo Pedraza Go, Osteomyelitis of right - Encounter foot, unspecified type 02/11/2017 Jesus Corbin MD (Primary Dx); ESRD (end stage renal disease); Hyperkalemia; Secondary hypertension; Osteomyelitis of lower leg 11/02/2016 [facility] General Internal Medicine Mundo Little [...] Taken Blood Pressure 143/63 05/17/2017 10:37 PM TECHNOLOGY TRAINER Pulse 93 05/17/2017 10:37 PM TECHNOLOGY TRAINER Temperature 36.1 C (97 F) 05/17/2017 10:37 PM TECHNOLOGY TRAINER Respiratory Rate 20 05/17/2017 10:37 PM TECHNOLOGY TRAINER Oxygen Saturation 96% 05/17/2017 10:37 PM TECHNOLOGY TRAINER Inhaled Oxygen - - Concentration Weight 118 kg (261 lb 2 oz) 05/16/2017 4:31 AM TECHNOLOGY TRAINER Height 177.8 cm (5' 10") 04/25/2017 2:11 PM TECHNOLOGY TRAINER Body Mass Index 37.47 05/16/2017 4:31 AM TECHNOLOGY TRAINER Plan of Treatment Health Maintenance Due Date Last Done Comments DIABETIC FOOT EXAM 1964 DIABETIC RETINAL EYE EXAM 1964 URINE MICROALBUMIN 1964 COLON CANCER SCREENING 2004 SHINGRIX VACCINE (#1) 2004 ZOSTER VACCINE 2014 INFLUENZA VACCINE 10/25/2017 Implants Implanted Type Area Controls Operator Molded Goods Device Expiration Model / Identifier Date Serial / Lot Device Vasclr Clsr Baln Cath 10ml Cardiovasc N/A: N/A CARDINAL 2018 [id number] / Lkng Syr 6fr 7fr [facility] / [id number] Implants [id number] Implanted: 05/04/2017 (Quantity not on file) Catheter Home Designer [place] 5fr 75cm Surgical N/A: N/A BSC PERIPHERAL 2017 [id number] 6x20mm 0.035in H-Pres - [id number] Implants; INTERVENTION 0 / Implanted: 11/03/2016 (Quantity not Expanders; VASCULAR MEGHA / on file) Extenders; [id number] Surgical Wires Drain Wnd Chnl 19fr n Rnd Hbls Surgical N/A: N/A BARD [employer]ICAL [id number] / Fl-Flut W/ n Trocar - [id number] Implants; DIVISION / Implanted: 02/01/2017 (Quantity not Expanders; [id number] on file) Extenders; Surgical Wires Tray Cath Dialys Curved 3lumen 20cm Surgical N/A: N/A BARD ACCESS 04/ [id number] / 13fr Power-Trialysis - [id number] Implants; SYSTEMS / Implanted: 02/21/2017 (Quantity not Expanders; [id number] on file) Extenders; Surgical Wires Catheter Angio Switch Technician Ii 5fr Surgical N/A: N/A [facility] PERIPHERAL [id number] 0.038in 65cm Hf Contra-L - Implants; INTERVENTION / [id number] Expanders; VASCULAR MEGHA / Implanted: 05/04/2017 (Quantity not Extenders; on file) Surgical Wires Guidewire Angio Stiff Shaft Angld Surgical N/A: N/A COOK PERIPHERAL 10/21/2019 [id number] / [employer] .035inx - Stents INTERVENTION / [id number] Implanted: 05/04/2017 (Quantity not on file) Procedures Procedure Name Priority Date/Time Associated Diagnosis Comments HEMODIALYSIS Routine 05/16/2017 9:20 AM TECHNOLOGY TRAINER HEMODIALYSIS Routine 05/11/2017 11:32 AM TECHNOLOGY TRAINER [place] AN ELECTIVE Routine 05/10/2017 SUPRAGLOTTIC AIRWAY 4:14 PM TECHNOLOGY TRAINER Procedure Note - Nickie Rene MD - 05/10/2017 4:14 PM TECHNOLOGY TRAINER Airway Date/Time: 05/10/2017 4:00 PM Performed by: [...] Routine 05/04/2017 Results for this 3:05 PM TECHNOLOGY TRAINER procedure are in the results section. HEMODIALYSIS Routine 05/04/2017 7:52 AM TECHNOLOGY TRAINER ECHOCARDIOGRAM 2D Routine 05/02/2017 Results for this COMPLETE W MMODE SPECTRAL 3:45 PM TECHNOLOGY TRAINER procedure are in the COLOR DOPPLER (49412) results section. HEMODIALYSIS Routine 05/02/2017 12:21 PM TECHNOLOGY TRAINER HEMODIALYSIS Routine 04/28/2017 11:09 AM TECHNOLOGY TRAINER HEMODIALYSIS Routine 04/26/2017 4:29 PM TECHNOLOGY TRAINER HEMODIALYSIS Routine 02/27/2017 8:51 AM TECHNOLOGY TRAINER HEMODIALYSIS Routine 02/25/2017 4:31 PM TECHNOLOGY TRAINER CV HYBRID OR FLUOROSCOPY Routine 02/23/2017 Results for this 1:00 PM TECHNOLOGY TRAINER procedure are in the results section. HEMODIALYSIS Routine 02/10/2017 12:29 PM TECHNOLOGY TRAINER HEMODIALYSIS Routine 02/08/2017 3:16 PM TECHNOLOGY TRAINER HEMODIALYSIS Routine 02/06/2017 7:43 AM TECHNOLOGY TRAINER HEMODIALYSIS Routine 01/30/2017 8:05 AM TECHNOLOGY TRAINER HEMODIALYSIS Routine 01/29/2017 11:38 AM TECHNOLOGY TRAINER [place] CRITICAL CARE, E/M Routine 01/28/2017 Results for this 30-74 MINUTES 2:20 AM CDT procedure are in the results section. HEMODIALYSIS Routine 11/03/2016 5:39 PM CDT [place] CRITICAL CARE, E/M Routine 11/03/2016 Results for [...] - 1.0 % Specimen Performing Laboratory Blood [facility] AND [facility]OMIC MEDICINE [address] [place] [address] * POC glucose (05/17/2017 8:55 PM) Only the most recent of 170 results within the time period is included. Component Value Ref Range POC glucose 179 (H) 65 - 100 mg/dL Comment: Meter ID: [id number] Residential Case Manager: Kael Borja Specimen Performing Laboratory [facility]OMIC MEDICINE [address] [place] [address] [place] [id number] * Prepare RBC, 1 Units (05/17/2017 12:51 PM) Only the most recent of 8 results within the time period is included. Component Value Ref Range Product name Red Blood Cells -1, Leukored Unit number [id number] Product code [id number] Dispense status Transfused Blood expiration date Blood type code 6200 Blood type A POSITIVE Specimen Performing Laboratory [facility] AND [facility] [address] [place] [address] [place] [address] * Type and screen (05/17/2017 12:51 PM) Only the most recent of 8 results within the time period is included. Component Value Ref Range ABO grouping A Rh type POS Antibody screen (gel) NEG Specimen Performing Laboratory Blood [facility] OF PATHOLOGY AND [address] [place] [address] * Estimated GFR (05/17/2017 6:23 AM) Only [...] and Americans. Specimen Performing Laboratory Plasma specimen [facility]OMIC MEDICINE [address] [place] [address] [place] [id number] * Basic metabolic panel (05/17/2017 6:23 AM) [...] 10.7 mg/dL Specimen Performing Laboratory Plasma specimen [facility]OMIC MEDICINE [address] [place] [address] [place] [place] [id number] * Surgical pathology request (05/10/2017 9:16 AM) Only the most recent of 3 results within the time period is included. Component Value Ref Range Surgical pathology report See link below for PDF Lab Report Result status This is Final Report to [id number] Specimen Performing Laboratory [facility] AND [facility]OMIC MEDICINE [address] [place] [address] [place] [id number] * Vancomycin level, random (05/08/2017 5:18 AM) Only the most recent of 4 results within the time period is included. Component Value Ref Range Vancomycin, random 16.4 ug/mL Comment: Therapeutic Ranges: Peak 30.0 - 40.0 ug/mL Trough 10.0 - 20.0 ug/mL Specimen Performing Laboratory Blood [facility]OMIC MEDICINE [address] [place] [address] [place] [address] * Renal function panel (05/08/2017 5:18 AM) [...] 4.5 mg/dL Specimen Performing Laboratory Plasma specimen [facility] AND GENOMIC MEDICINE [address] [place] [address] * Hybrid or fluoroscopy (05/04/2017 3:05 PM) Narrative See operative report for the same day * Potassium level (05/04/2017 1:50 PM) Component Value Ref Range Potassium 3.8 3.5 - 5.0 mEq/L Specimen Performing Laboratory Plasma specimen [facility] AND GENOMIC MEDICINE [address] [place] [address] * PV physiologic arterial lower ext bilat complete w ann marie (05/03/2017 1:34 PM) Specimen Performing Laboratory [facility] [address] [place] [address] Narrative EXAMINATION:PV PHYSIOLOGIC ARTERIAL LOWER EXTREMITY COMPLETE [...] amplitude without delayed upstroke. Digit: Diminished amplitude. [facility]-[id number] ANN MARIE Guidelines: >1.4: Calcified Vessel 0.9-1.4: Normal 0.7-0.89: Mild PAD 0.51-0.69: Moderate PAD <0.5: Severe PAD TBI Guidelines: <0.6: Normal 0.34-0.59: Mild PAD 0.12-0.34: Moderate PAD <0.11: Severe PAD Procedure Note [facility], Radiology Results Incoming - 05/03/2017 2:08 PM TECHNOLOGY TRAINER EXAMINATION: PV PHYSIOLOGIC ARTERIAL LOWER EXTREMITY COMPLETE [...] amplitude without delayed upstroke. Digit: Diminished amplitude. [facility]-[id number] ANN MARIE Guidelines: >1.4: Calcified Vessel 0.9-1.4: [...] validate this result. Specimen Performing Laboratory Blood [facility] AND GENOMIC MEDICINE [address] [place] [address] * Prothrombin time with INR (05/03/2017 4:47 [...] values over 4.0. Specimen Performing Laboratory Blood [facility] AND GENOMIC MEDICINE [address] [place] [place] [address] * Echocardiogram complete w contrast and 3D [...] 51.70 % LV EF,A4C 48.98 % Benigno [place],d A4C 8.75 cm Benigno [place],s A4C 6.70 cm LV SV,A4C 66.16 % [...] 2.52 m/s2 Specimen Performing Laboratory [facility] [address] [place] [address] Narrative The left ventricle chamber size is normal. There is mild left ventricular Left Ventricular ejection fraction is 55 - 60%. Right ventricular size is normal. * ECG 12 lead (05/01/2017 3:21 PM) Only the most recent of 10 results within the time period is included. Component Value Ref Range Ventricular rate 87 Atrial rate 87 [place] interval 232 QRSD interval 140 QT interval 400 QTC interval 481 QRS axis 1 -18 T wave axis 246 EKG impression Sinus rhythm with 1st degree AV block-Nonspecific intraventricular block-Lateral infarct , age undetermined-Inferior infarct (cited on or before 04-APR-2017)-Abnormal ECG-In automated comparison with ECG of 04-APR-2017 16:28,-QRS duration has increased-Lateral infarct is now jgfzbdn-Hst-nbhrefjd change in ST segment in Inferior leads-Nonspecific T wave abnormality has replaced inverted T waves in Inferior leads- Specimen Performing Laboratory [facility] [place] [address] [place] [address] * Us duplex arterial lower extremity (04/30/2017 9:09 PM) Only the most recent of 2 results within the time period is included. Specimen Performing Laboratory [facility] [address] [place] [address] Narrative US DUPLEX ARTERIAL LOWER EXTREMITY LEFT [...] participate in the care of your patient [facility]-[id number] Procedure Note Interface, Radiology Results Incoming - 04/30/2017 9:22 PM TECHNOLOGY TRAINER US DUPLEX ARTERIAL LOWER EXTREMITY LEFT CLINICAL [...] participate in the care of your patient [facility]-[id number] * MRI Foot Wo Contrast Left (04/29/2017 11:25 AM) Specimen Performing Laboratory [facility] [address] [place] [address] Narrative EXAMINATION:MRI FOOT WO CONTRAST LEFT CLINICAL [...] or abscess. Mild diffuse edema is present. [facility]-[id number] posterior Procedure Note Hm Interface, Radiology Results Incoming - 04/29/2017 12:26 PM TECHNOLOGY TRAINER EXAMINATION: MRI FOOT WO CONTRAST LEFT CLINICAL [...] or abscess. Mild diffuse edema is present. [facility]-[id number] posterior * Insert peripheral IV (04/28/2017 3:25 [...] Vancomycin Sensitive. (A) Specimen Performing Laboratory Wound [facility] DEPARTMENT OF PATHOLOGY AND GENOMIC MEDICINE [address] [place] [address] Organism Antibiotic Method Susceptibility Enterococcus faecalis Ampicillin [...] Specimen Site: Wound Specimen Performing Laboratory Wound [facility] DEPARTMENT OF PATHOLOGY AND GENOMIC MEDICINE [address] [place] [address] * Anaerobic culture (04/28/2017 3:05 PM) Only the most recent of 3 results within the time period is included. Component Value Ref Range Anaerobic culture isolate No anaerobic organisms isolated. Comment: Specimen Information Specimen Source: Wound Specimen Site: Wound Specimen Performing Laboratory Wound [facility] DEPARTMENT OF PATHOLOGY AND GENOMIC MEDICINE [address] [place] [address] * Smear review (04/28/2017 4:44 AM) Only the most recent of 5 results within the time period is included. Component Value Ref Range Platelet slide review Edward adequate Anisocytosis Moderate Polychromasia Slight Schistocytes Occasional Target cells Occasional Specimen Performing Laboratory [facility] AND GENOMIC MEDICINE [address] [place] [address] * Phosphorus level (04/28/2017 4:44 AM) Only the most recent of 10 results within the time period is included. Component Value Ref Range Phosphorus 8.2 (HH) 2.5 - 4.5 mg/dL Comment: Results called to and read back by KAILEY PORTILLO/Praneeth at 04/28/2017 06:21 by _IV_. Specimen Performing Laboratory Plasma specimen [facility] AND GENOMIC MEDICINE [address] [place] [address]. [place] [address] * Magnesium level (04/28/2017 4:44 AM) Only the most recent of 11 results within the time period is included. Component Value Ref Range Magnesium 2.10 1.60 - 2.40 mg/dL Specimen Performing Laboratory Plasma specimen [facility] AND GENOMIC MEDICINE [address] [place] [address] [place] [address] * Hepatitis B surface antigen (04/26/2017 10:10 AM) Only the most recent of 4 results within the time period is included. Component Value Ref Range Hepatitis B surface Ag Non-reactive Non-reactive Specimen Performing Laboratory Blood [facility] OF [facility] AND GENOMIC MEDICINE [address] [place] [address]. [place] [address] * Lactic acid level, SEPSIS - Now and repeat 2x every 3 hours (04/26/2017 12:48 AM) Only the most recent of 2 results within the time period is included. Component Value Ref Range Lactic acid 0.6 0.5 - 2.2 mmol/L Specimen Performing Laboratory Blood [facility] OF [facility] AND GENOMIC MEDICINE [address] [place] [address]. [place] [address] * XR Foot 3+ Vw Left (04/25/2017 5:32 PM) Specimen Performing Laboratory [facility] [address] [place] [address] Narrative EXAMINATION:XR FOOT 3VW LEFT CLINICAL HISTORY:left diabetic foot ulcer COMPARISON:None. IMPRESSION: There is a displaced fracture of the distal fifth metatarsal where there is an apparent soft tissue ulceration. This may represent superimposed osteomyelitis. There is diffuse soft tissue swelling. [id number] Procedure Note Hm Interface, Radiology Results Incoming - 04/25/2017 5:42 PM TECHNOLOGY TRAINER EXAMINATION: XR FOOT 3 VW LEFT CLINICAL HISTORY: left diabetic foot ulcer COMPARISON: None. IMPRESSION: There is a displaced fracture of the distal fifth metatarsal where there is an apparent soft tissue ulceration. This may represent superimposed osteomyelitis. There is diffuse soft tissue swelling. [id number] * Blood culture, aerobic & anaerobic (04/25/2017 3:54 PM) Only the most recent of 4 results within the time period is included. Component Value Ref Range Blood culture isolate No growth after 5 days of incubation. Comment: Specimen Information Specimen Source: Blood Specimen Site: Peripheral Forearm Left Specimen Performing Laboratory Blood [facility] DEPARTMENT OF PATHOLOGY AND GENOMIC MEDICINE [address] [place] [address] * Comprehensive metabolic panel (04/25/2017 3:47 PM) [...] 1.2 mg/dL Specimen Performing Laboratory Plasma specimen [facility] OF [facility]OLOGY AND GENOMIC MEDICINE [address] [facility] [place] [address] * ECG ED Preliminary Interpretation - NOT AN ORDER (04/13/2017 8:22 AM) Only the most recent of 4 results within the time period is included. Narrative Ayala Jenkins Jr., MD 04/13/20178:22 AM ECG ED Preliminary Interpretation - Not an Order Performed by: AYALA JENKINS JR. Authorized by: AYALA JENKINS JR. ECG reviewed by ED Physician in the absence of a engineer technical staff: yes Previous ECG: Previous ECG:Unavailable Interpretation: Interpretation: abnormal Rate: ECG rate:88 ECG rate assessment: normal Rhythm: Rhythm: sinus rhythm Ectopy: Ectopy: none QRS: QRS axis:Normal QRS intervals:Normal Conduction: Conduction: normal ST segments: ST segments:Normal T waves: T waves: inverted Inverted:V6 Q waves: Q waves:III and aVF Comments: EKG completed at 1831 04/04/2017 * IR Endovascular Consult (02/27/2017 4:06 PM) Specimen Performing Laboratory [facility] [address] [place] [address] Narrative EXAMINATION:IR ENDOVASCULAR CONSULT REASON FOR EXAMINATION:Renal Dialysis COMPARISON: None FINDINGS: The skin overlying the left infraclavicular region was prepped and draped in a sterile manner. The temporary dialysis catheter was then removed. The patient tolerated the procedure well. Hemostasis was obtained. The patient will be discharged from the radiology department in stable condition. IMPRESSION: 1. Removal of a nontunneled temporary hemodialysis catheter [id number] Procedure Note Interface, Radiology Results Incoming - 02/27/2017 7:00 PM TECHNOLOGY TRAINER EXAMINATION: IR ENDOVASCULAR CONSULT REASON FOR EXAMINATION: [...] Removal of a nontunneled temporary hemodialysis catheter [id number] * Hybrid or fluoroscopy (02/23/2017 1:00 PM) Narrative See operative report for the same day * XR Chest 1 Vw Portable (02/23/2017 7:40 AM) Specimen Performing Laboratory [facility] [address] [place] [address] Narrative EXAMINATION:XR CHEST 1 VW PORTABLE CLINICAL [...] Bones:unremarkable. IMPRESSION: Negative for acute cardiopulmonary disease. [id number] Procedure Note Interface, Radiology Results Incoming - 02/23/2017 8:07 AM TECHNOLOGY TRAINER EXAMINATION: XR CHEST 1 VW PORTABLE CLINICAL [...] unremarkable. IMPRESSION: Negative for acute cardiopulmonary disease. [id number] * IR Central Catheter Placement Replace Removal Fluoroscopy (02/21/2017 2:36 PM ) Specimen Performing Laboratory [facility] [address] [place] [address] Narrative PERFORMING RADIOLOGISTS: Erlin Gonzalez MD ASSISTANTS: None. ANESTHESIA: No sedation was administered. Lidocaine 1% and lidocaine 1% with epinephrine were used for local anesthetic. PRE PROCEDURE DIAGNOSIS: Need for dialysis. POST PROCEDURE DIAGNOSIS: Status post placement of non tunneled dialysis catheter. PROCEDURE: 1.Ultrasound-guided access of left internal jugular vein. 2.Placement of left internal jugular approach dual glide13 [place] non- tunneled hemodialysis catheter. PROCEDURE IN DETAIL: [...] serial dilatation a maximal diameter of 12 [place] was performed. Then, a 13 [place] 15 cm long dual glide non tunneled [...] IMPRESSION: Successful fluoroscopic-guided placement of a 13 [place] non tunneled dialysis catheter via the leftinternal jugular vein. The catheter tip lies at the right atrium/superior vena cava junction and is ready for use. [id number] [id number] Procedure Note Hm Interface, Radiology Results Incoming - 02/21/2017 3:01 PM TECHNOLOGY TRAINER PERFORMING RADIOLOGISTS: Erlin Gonzalez MD ASSISTANTS: None. ANESTHESIA: No sedation was administered. Lidocaine 1% and lidocaine 1% with epinephrine were used for local anesthetic. PRE PROCEDURE DIAGNOSIS: Need for dialysis. POST PROCEDURE DIAGNOSIS: Status post placement of non tunneled dialysis catheter. PROCEDURE: 1. Ultrasound-guided access of left internal jugular vein. 2. Placement of left internal jugular approach dual glide 13 [place] non- tunneled hemodialysis catheter. PROCEDURE IN DETAIL: [...] serial dilatation a maximal diameter of 12 [place] was performed. Then, a 13 [place] 15 cm long dual glide non tunneled [...] IMPRESSION: Successful fluoroscopic-guided placement of a 13 [place] non tunneled dialysis catheter via the leftinternal jugular vein. The catheter tip lies at the right atrium/superior vena cava junction and is ready for use. [id number] [id number] * IR Central Catheter Placement Us (02/21/2017 2:36 PM) Specimen Performing Laboratory [facility] [address] [place] [address] Narrative PERFORMING RADIOLOGISTS: Erlin Gonzalez MD ASSISTANTS: None. ANESTHESIA: No sedation was administered. Lidocaine 1% and lidocaine 1% with epinephrine were used for local anesthetic. PRE PROCEDURE DIAGNOSIS: Need for dialysis. POST PROCEDURE DIAGNOSIS: Status post placement of non tunneled dialysis catheter. PROCEDURE: 1.Ultrasound-guided access of left internal jugular vein. 2.Placement of left internal jugular approach dual glide13 [place] non- tunneled hemodialysis catheter. PROCEDURE IN DETAIL: [...] serial dilatation a maximal diameter of 12 [place] was performed. Then, a 13 [place] 15 cm long dual glide non tunneled [...] IMPRESSION: Successful fluoroscopic-guided placement of a 13 [place] non tunneled dialysis catheter via the leftinternal jugular vein. The catheter tip lies at the right atrium/superior vena cava junction and is ready for use. [id number] [id number] Procedure Note Hm Interface, Radiology Results Incoming - 02/21/2017 3:01 PM TECHNOLOGY TRAINER PERFORMING RADIOLOGISTS: Erlin Gonzalez MD ASSISTANTS: None. ANESTHESIA: No sedation was administered. Lidocaine 1% and lidocaine 1% with epinephrine were used for local anesthetic. PRE PROCEDURE DIAGNOSIS: Need for dialysis. POST PROCEDURE DIAGNOSIS: Status post placement of non tunneled dialysis catheter. PROCEDURE: 1. Ultrasound-guided access of left internal jugular vein. 2. Placement of left internal jugular approach dual glide 13 [place] non- tunneled hemodialysis catheter. PROCEDURE IN DETAIL: [...] serial dilatation a maximal diameter of 12 [place] was performed. Then, a 13 [place] 15 cm long dual glide non tunneled [...] IMPRESSION: Successful fluoroscopic-guided placement of a 13 [place] non tunneled dialysis catheter via the leftinternal jugular vein. The catheter tip lies at the right atrium/superior vena cava junction and is ready for use. [facility]-[id number] [facility]-[id number] * Troponin (02/20/2017 6:22 PM) Only the [...] myocardial injury. Specimen Performing Laboratory Plasma specimen [facility] GENOMIC MEDICINE [address] [place] [address] * B natriuretic peptide (02/20/2017 6:22 PM) Only the most recent of 2 results within the time period is included. Component Value Ref Range BNP 156 (H) 0 - 100 pg/mL Specimen Performing Laboratory Blood [facility]OM[facility] [address] [place] [address] * Transfuse RBC (02/08/2017 5:31 PM) Only the most recent of 5 results within the time period is included. * Total iron binding capacity (02/05/2017 6:30 AM) Component Value Ref Range Iron level 97 76 - 198 ug/dL Iron binding capacity 160 (L) 271 - 474 ug/dL % Saturation 60.6 (H) 20.0 - 40.0 % Specimen Performing Laboratory Plasma specimen [facility]OM[facility]IC[facility] [address] [place] [address] * Ferritin level (02/05/2017 6:30 AM) Component Value Ref Range Ferritin level 1,561 (H) 18 - 158 ng/mL Specimen Performing Laboratory Serum [facility] [address] [place] [address] * Urinalysis screen and microscopy, with reflex [...] None seen UA Specimen Performing Laboratory Urine [facility]OMIC MEDICINE [address] [place] [place] [address] * Urine culture (01/29/2017 10:27 AM) Component Value Ref Range Urine culture SEE COMMENTComment: Bacteriuria screen negative. Specimen Performing Laboratory Urine [facility] [address] [facility] [place] [address] * Hepatitis B surface Ab, quantitative (01/28/2017 [...] Cellular and Tissue-Based Products (HCT/P). Performed by [facility], [address] [place] [address] [email or web address], Raheem Cox MD - Lab. Director Specimen Performing Laboratory Serum [facility] [address] [place] [address] * CRITICAL CARE (01/28/2017 2:20 AM) Narrative [...] extremity (01/27/2017 10:38 PM) Specimen Performing Laboratory [address] [address] Narrative EXAMINATION:US DUPLEX VENOUS LOWER EXTREMITY RIGHT [...] is no evidence of deep venous thrombosis. [facility]-[id number] Procedure Note Interface, Radiology Results Incoming - [...] is no evidence of deep venous thrombosis. [facility]-[id number] * XR Foot 3+ Vw Right (01/27/2017 7:49 PM) Specimen Performing Laboratory [facility] [place] [address] Narrative XR FOOT 3VW RIGHT CLINICAL INDICATION:OSTEOMYELITIS [...] fracture is identified. The bones are demineralized. [facility]-[id number] Procedure Note Hm Interface, Radiology Results Incoming [...] fracture is identified. The bones are demineralized. [facility]-[id number] * IR Evaluation of Dialysis Fistula/Graft w Angioplasty (11/03/2016 5:26 PM) Specimen Performing Laboratory [facility] [place] [address] Addenda Addendum by Erlin Gonzalez MD on [...] needle. Needle was exchanged for a 5 [place]ese micropuncture sheath. Inner portion of the micropuncture [...] The needle was exchanged for a 5 [place] micropuncture sheath. The inner portion of the sheath and microwire were exchanged for 0.035 inch Bentson wire. The micropuncture sheath was exchanged for a 6 [place] vascular sheath. A roadmap function to highlight anatomy, a 5 [place] Evans catheter and a 0.035 inch glide wire were advanced across the arteriovenous anastomosis into the distal right brachial artery. The Glidewire was exchanged for a Bentson wire. The Evans catheter was exchanged for first a 6 mm x 2 cm [place] balloon. Angioplasty was performed along the length [...] a maximal diameter of 6 mm. 3. Restorationist of excellent pulse and thrill throughout the [...] needle. Needle was exchanged for a 5 [place] micropuncture sheath. Inner portion of the micropuncture [...] The needle was exchanged for a 5 [place] micropuncture sheath. The inner portion of the sheath and microwire were exchanged for 0.035 inch Bentson wire. The micropuncture sheath was exchanged for a 6 [place] vascular sheath. A roadmap function to highlight anatomy, a 5 [place] Evans catheter and a 0.035 inch glide wire were advanced across the arteriovenous anastomosis into the distal right brachial artery. The Glidewire was exchanged for a Bentson wire. The Evans catheter was exchanged for first a 6 mm x 2 cm [place] balloon. Angioplasty was performed along the length [...] a maximal diameter of 6 mm. 3. Restorationist of excellent pulse and thrill throughout the [...] needle. Needle was exchanged for a 5 [place] micropuncture sheath. Inner portion of the micropuncture [...] The needle was exchanged for a 5 [place] micropuncture sheath. The inner portion of the sheath and microwire were exchanged for 0.035 inch Bentson wire. The micropuncture sheath was exchanged for a 6 [place] vascular sheath. A roadmap function to highlight anatomy, a 5 [place] Evans catheter and a 0.035 inch glide wire were advanced across the arteriovenous anastomosis into the distal right brachial artery. The Glidewire was exchanged for a Bentson wire. The Evans catheter was exchanged for first a 6 mm x 2 cm [place] balloon. Angioplasty was performed along the length [...] a maximal diameter of 6 mm. 3. Restorationist of excellent pulse and thrill throughout the [...] indicated. (A [id number]) Specimen Performing Laboratory Blood [facility]OM[facility]IC[facility] [address] [place] [address] * Lipid panel (11/02/2016 6:26 PM) Component [...] (>=200 mg/dL) Specimen Performing Laboratory Plasma specimen [facility]OMIC MEDIC[facility] [address] [place] [address] after 08/10/2016 Insurance Payer Benefit Subscriber ID Type Phone Address Plan / Group UHC MEDICAID [employer] xxxxxxxxx O COMM STAR+ [place] Home: [address] [facility]ily [facility] [place] [phone]
--- OUTSIDE RECORDS SUMMARY | 2017-08-11 23:13 | XMS REPORT | Clinical Summary ---
Author Author AVANI [facility] Address Unknown Phone Unavailable Care Team Providers Care Invoice Coder Name Role Phone PCP Unavailable Allergies Active [...] ESRD (end stage renal disease) on dialysis ([facility]) 07/06/2017 PAD (peripheral artery disease) ([facility]) 07/06/2017 Hx of right BKA ([facility]) 07/06/2017 Diabetic ulcer of left midfoot associated with type 2 diabetes mellitus 02/2018 ([facility]) Type 2 diabetes mellitus with complication, with long-term current use of insulin ([facility]) Encounters Date Type Specialty Care Team Description 07/06/2017 [facility] Tremor (Primary Dx);ESRD - Encounter Danis Vargas MD (end stage renal disease) 07/09/2017 Derick Robertson on dialysis ([facility]);Diabetic nephropathy associated with type 2 diabetes mellitus ([facility]);Essential hypertension;S/P BKA (below knee amputation), right ([facility]);Diabetic polyneuropathy associated with type 2 diabetes mellitus ([facility]);Coronary artery disease involving [place] coronary artery of [place] heart without angina pectoris 07/06/2017 Orders Only [...] Range POC-Glucose Meter 140 (H)Comment: TESTED AT [address] 70 - 110 mg /dL [place] [id number] Specimen Performing Laboratory Blood [facility] [address] [address] * Hemodialysis (07/08/2017 11:26 AM) Only the [...] Color, UA Yellow Clarity, UA Hazy Specific Graham, UA 1.011 1.001 - 1.035 pH, UA [...] /HPF Specimen Source Specimen Performing Laboratory Urine [address] [address] * Urine culture (07/08/2017 6:21 AM) Component Value Ref Range Result >100,000 col/mL Klebsiella pneumoniae ssp pneumoniae (A) Result >100,000 col/mL Escherichia coli (A)Comment: ESBL Positive Result >100,000 col/mL Vancomycin resistant Enterococcus species (A) Specimen Performing Laboratory Urine - Urine, Voided [address] [address] Narrative <10,000 col/mL Gram negative dora of [...] of EE07/07/17 DATE OF REPORT: 07/07/17 ACC: [id number] EEG Number: [id number] Test Location: Inpatient Room Start time: 171 Stop time: 173 ICD-10: R56.9 CPT Code: 12382 HISTORY: 62 year old male with ESRD secondary to DM/HTN, on HD for last 2 years. Admitted with tremors in all extremities after a repair of right upper arm AVF on 06/30 at [facility]. EEG to further evaluate. MEDICATIONS THAT [...] of EE07/07/17 DATE OF REPORT: 07/07/17 ACC: [id number] EEG Number: [id number] Test Location: Inpatient Room Start time: 1717 Stop time: 1738 ICD-10: R56.9 CPT Code: 18566 HISTORY: 62 year old male with ESRD secondary to DM/HTN, on HD for last 2 years. Admitted with tremors in all extremities after a repair of right upper arm AVF on 06/30 at [facility]. EEG to further evaluate. MEDICATIONS THAT [...] Specimen Performing Laboratory Blood - Line, Venous [address] [address] * Hepatitis B surface antigen (07/07/2017 8:50 AM) Component Value Ref Range hepatitis B Surface Ag Nonreactive Nonreactive Specimen Performing Laboratory Blood - Line, Venous [address] [address] * CBC with platelet count + automated diff (07/07/2017 8:50 AM) Only the most recent of 2 results within the time period is included. Specimen Performing Laboratory Blood Narrative The following orders were created for panel order CBC with platelet count + automated diff. Procedure Abnormality Status --------- - ------ CBC with platelet count ...[[id number]]AbnormalFinal result Please view results for these tests on the individual orders. * Phosphorus (07/07/2017 8:50 AM) Component Value Ref Range Phosphorus 7.4 (H) 2.3 - 4.7 mg/dL Specimen Performing Laboratory Blood - Line, [place] [address] * Comprehensive metabolic panel (07/07/2017 8:50 AM) [...] Specimen Performing Laboratory Blood - Line, Venous [place] [id number] * PERIPHERAL VASCULAR REPORT - SCAN (07/07/2017 [...] + + + + +---- + !Prox GEODETIC ADVISOR ! !131 ! !Monophasic! + + + + +---- + !Mid GEODETIC ADVISOR ! !34.4! !Monophasic! + + + + +---- + !Dist GEODETIC ADVISOR ! !17.9! !Monophasic! + + + + [...] Patient Name TYLER BISHOP Date of Study07/06/2017 [id number] Age 62 Visit Number [id number] Gender Male Accession Number [id number] Date of Birth1955 [facility] Room Number [facility]60 [facility] MD, CHRISTINA SALGUEROT Procedure Type of [...] of Study 07/06/2017 Age 62 Visit Number [id number] Gender Male Accession Number [id number] Date of 1955 [facility] Room Number 960 Physician Avery Radio Adjuster Aleksandr Vickers RVS Physician CHRISTINA AC RVT [...] + + + +-------- + + !Prox GEODETIC ADVISOR ! !131 ! !Monophasic ! + + + +-------- + + !Mid GEODETIC ADVISOR ! !34.4 ! !Monophasic ! + + + +-------- + + !Dist GEODETIC ADVISOR ! !17.9 ! !Monophasic ! + + [...] MD Report Verified Date/Time:07/06/2017 18:05:27 Reading Location: [facility] Radiology Reading Room Procedure Note Interface, [...] Report Verified Date/Time: 07/06/2017 18:05:27 Reading Location: [facility] Radiology Reading Room * XR foot [...] MD Report Verified Date/Time:07/06/2017 12:48:52 Reading Location: [facility] Radiology Reading Room Procedure Note Interface, [...] Report Verified Date/Time: 07/06/2017 12:48:52 Reading Location: [facility] Radiology Reading Room * ED ECG Interpretation (07/06/2017 6:20 AM) Narrative Ruben Sprague MD 07/06/20176:20 AM ECG/EKG Interpretation Date/Time: 07/06/2017 4:54 AM Performed by: RUBEN SPRAGEU Authorized by: RUBEN SPRAGUE The ECG was interpreted by ED physician. There was no previous ECG available for comparison. The ECG is interpreted as sinus rhythm. Rate is normal rate. Abnormal conduction noted: right bundle branch block and 1st degree. [place] is normal. Clinical Impression: non-specific ECGECG reviewed and does not meet STEMI criteria. Patient tolerance: Patient tolerated the procedure well with no immediate complications * PT/aPTT (07/06/2017 4:52 AM) Component Value Ref Range Protime 15.9 (H) 11.7 - 14.7 seconds INR 1.3 <=5.9 PTT 27.3 22.5 - 36.0 seconds Specimen Performing Laboratory Blood [place] [id number] Narrative RECOMMENDED COUMADIN/WARFARIN INR THERAPY RANGES STANDARD DOSE: 2.0 - 3.0 Includes: PROPHYLAXIS for venous thrombosis, systemic embolization; TREATMENT for venous thrombosis and/or pulmonary embolus. HIGH RISK: Target INR is 2.5-3.5 for patients with mechanical heart valves. * Troponin I (not available at [facility]) (07/06/2017 4:52 AM) Component Value Ref Range Troponin I 0.02 0.00 - 0.03 ng/mL Specimen Performing Laboratory Blood [address] [address] Narrative Troponin I (TnI) levels must be [...] (CK), Total and MB (not available at [facility]) (07/06 4:52 AM) Component Value Ref Range Total CK 38 29 - 200 U/L CK-MB 0.9 0.0 - 6.6 ng/mL MB Relative Index 2.4 % Specimen Performing Laboratory Blood [address] [address] Narrative CK-MB Reference Range: <6.7Normal 6.7-10.0Borderline >10.0 [...] FOR DIALYSIS PATIENTS. Specimen Performing Laboratory Blood [address] [address] * Blood culture (07/06/2017 4:51 AM) Component Value Ref Range Result No growth in 5 days Specimen Performing Laboratory Blood - Line, Venous [address] [address] * ECG 12 lead (07/06/2017 4:47 AM) Specimen Performing Laboratory GE MUSE Narrative Ventricular Rate 90 BPM Atrial Rate 90 BPM P-R Interval 216 ms QRS Duration 146 ms Q-T Interval 412 ms QTC Calculation(Bazett) 504 ms P [place] 74 degrees R [place] 57 degrees T [place] -20 degrees Atrial flutter with variable block [...] 412 ms QTC Calculation(Bazett) 504 ms P [place] 74 degrees R [place] 57 degrees T [place] -20 degrees Atrial flutter with variable block Right bundle branch block T wave abnormality, consider inferior ischemia Abnormal ECG When compared with ECG of 09-JUL-2010 00:54, Right bundle branch block is now Present Confirmed by MD Abdiel, Adam ([id number]) on 07/06/2017 10:15:51 AM * CT brain without IV contrast (07/06/2017 4:26 AM) Specimen Performing Laboratory [employer] Narrative FINAL REPORT CT, BRAIN, WITHOUT [...] MD Report Verified Date/Time:07/06/2017 04:32:28 Reading Location: [address] Transitional Reading Room Procedure Note Interface, [...] Report Verified Date/Time: 07/06/2017 04:32:28 Reading Location: [address] Transitional Reading Room * XR chest [...] MD Report Verified Date/Time:07/06/2017 04:17:31 Reading Location: [address] Transitional Reading Room Procedure Note Interface, [...] Report Verified Date/Time: 07/06/2017 04:17:31 Reading Location: [address] Transitional Reading Room after 08/10/2016
[2017-08-11] MEDS ORDERED: METOCLOPRAMIDE HCL 10 MG TAB PO PRN (23:15)
[2017-08-11] MEDS ORDERED: DEXTROSE 50% SYRINGE 50 ML IV PRN (23:15)
[2017-08-11] MEDS ORDERED: NITROGLYCERIN 0.4 MG SUBL SL PRN (23:15)
[2017-08-11] MEDS ORDERED: NON-FORMULARY MEDICATION (Metoclopramide Hcl (Reglan) 5 MG) PO PRN (23:15)
[2017-08-11] MEDS ORDERED: FUROSEMIDE INJ 10 MG/ML 2 ML VIAL IV PRN (23:15)
[2017-08-11] MEDS ORDERED: ONDANSETRON HCL 4 MG ORAL DISINTEGRATING TAB PO PRN (23:15)
[2017-08-11] MEDS ORDERED: CLONIDINE HCL 0.1 MG TAB PO PRN (23:15)
[2017-08-11] MEDS ORDERED: METOPROLOL TARTRATE 25 MG TAB PO PRN (23:15)
[2017-08-11] MEDS ORDERED: SODIUM CHLORIDE 0.9% 250ML 250 ML IV ONE (23:15)
[2017-08-12] VITALS (7 sets, daily range): BP systolic 148–184; BP diastolic 73–86
[2017-08-12 05:59] LABS: BASOPHILS # (AUTO) 0.1 (0.0-0.1); BASOPHILS % 1.3 % (0.0-1.0); EOSINOPHILS # (AUTO) 0.2 (0.0-0.4); HEMATOCRIT 18.6 % (38.2-49.6); LYMPHOCYTES # (AUTO) 0.9 (1.0-3.2); LYMPHOCYTES % 15.4 % (18.0-39.1); MEAN CORPUSCULAR HEMOGLOBIN 26.8 pg (28-32); MEAN CORPUSCULAR HGB CONC 28.5 g/dL (31-35); MEAN CORPUSCULAR VOLUME 93.9 fL (81-99); MONOCYTES # (AUTO) 0.5 (0.2-0.8); MONOCYTES % 8.4 % (4.4-11.3); NEUTROPHILS # (AUTO) 4.3 (2.1-6.9); NEUTROPHILS % 71.6 % (38.7-80.0); PLATELET COUNT 245 x10e3/uL (140-360); RED BLOOD COUNT 1.98 x10e6/uL (4.3-5.7); RED CELL DISTRIBUTION WIDTH 16.8 % (11.7-14.4)
[2017-08-12 06:12] LABS: HEMOGLOBIN 5.3 g/dL (14.0-18.0)
[2017-08-12 06:18] LABS: ALBUMIN 2.5 g/dL (3.5-5.0); ALBUMIN/GLOBULIN RATIO 0.5 (0.8-2.0); ALKALINE PHOSPHATASE 57 IU/L (40-150); ANION GAP 13.2 mmol/L (8-16); BLOOD UREA NITROGEN 17 mg/dL (7-26); BUN/CREATININE RATIO 5 (6-25); CALCIUM 9.1 mg/dL (8.4-10.2); CARBON DIOXIDE 31 mmol/L (22-29); CHLORIDE 96 mmol/L (98-107); CREATININE, SERUM 3.59 mg/dL (0.72-1.25); EST GLOMERULAR FILTRATION RATE 17 ML/MIN (60-); GLUCOSE 128 mg/dL (74-118); POTASSIUM 4.2 mmol/L (3.5-5.1); SODIUM 136 mmol/L (136-145)
[2017-08-12 06:20] LABS: ALANINE AMINOTRANSFERASE < 6 IU/L (0-55)
[2017-08-12] MEDS: INSULIN REGULAR, HUMAN 100 UNIT/1 ML 3ML VIAL SQ SCH ×3 (07:30→16:08)
[2017-08-12] MEDS ORDERED: PANTOPRAZOLE SOD 40 MG TABEC PO SCH (08:00)
[2017-08-12] MEDS ORDERED: SODIUM CHLORIDE 0.9% 1000ML 2,000 ML ONE (08:31)
[2017-08-12] MEDS: NIFEDIPINE CR 30 MG TAB PO SCH ×2 (08:45→16:21)
[2017-08-12] MEDS ORDERED: PANTOPRAZOLE 40 MG 10ML VIAL IV SCH (09:00)
[2017-08-12] MEDS ORDERED: ASPIRIN 81 MG CHEW TAB PO SCH (09:00)
[2017-08-12] MEDS ORDERED: LOPERAMIDE HCL 2 MG CAP PO PRN (09:15)
[2017-08-12] MEDS: METOCLOPRAMIDE HCL 10 MG TAB PO SCH ×2 (11:30→16:08)
--- NOTE | 2017-08-12 13:21 | Consultation ---
DATE OF CONSULTATION: RENAL CONSULTATION Thank you for the consult. Mr. Aponte is a pleasant 62-year-old male patient with end-stage renal disease, on hemodialysis on Monday, Monday and Monday at [facility] dialysis facility in [place]. The patient has been having low hemoglobins over the last week or so. Had a hemoglobin in the 5 range and hematocrit in the 18 range. Subsequently, he was asked to go to the emergency room to get evaluated and for blood transfusion. The patient does tend to miss some dialysis treatments. Also, as a result of that does not receive the appropriate dose of his Epogen. In any case, the patient presented to the emergency room yesterday. He did have a short dialysis treatment yesterday. He was found to have a hemoglobin of 5.3 and is receiving 2 units of packed red blood cells with dialysis today. The patient is going to get a short dialysis treatment as well today since he did not have a complete dialysis treatment yesterday in the outpatient setting. Renal consultation has been asked to provide his dialysis while he is here. No nausea. No vomiting. No chest pain. No shortness of breath. No abdominal pain. No other specific symptoms at this time. PAST MEDICAL HISTORY: End-stage renal disease, hypertension, diabetes mellitus, history of peripheral vascular disease. ALLERGIES: NUMEROUS AND REVIEWED PER CHART. SOCIAL HISTORY: No tobacco. No alcohol use. FAMILY HISTORY: Noncontributory. REVIEW OF SYSTEMS: As in HPI. Otherwise, all systems negative. MEDICATIONS: Have been reviewed per chart. PHYSICAL EXAMINATION VITAL SIGNS: Blood pressure 162/75, pulse 89, respirations 16, afebrile. HEENT: No cervical lymphadenopathy. NECK: Supple without masses. No evidence of JVD. Moist oral mucosa. SKIN: Moist with good turgor. CHEST: Good expansion. No chest wall tenderness. Lungs are clear to auscultation bilaterally. CARDIOVASCULAR: S1 and S2. No evidence of gallop, rub or murmur. ABDOMEN: Soft. Positive bowel sounds. Nontender and no hepatosplenomegaly. EXTREMITIES: No evidence of lower extremity edema. NEUROLOGY: Awake, alert and oriented times 3. Grossly nonfocal exam. LABS: Hemoglobin 6.2, hematocrit 21.4, white count 7.4, and platelets of 261,000. Chemistries today, sodium 136, potassium 4.2, chloride 96, carb 31, BUN 17, creatinine 3.6. IMPRESSION AND PLAN 1. End-stage renal disease: Will provide dialysis while he is here. He is also to receive 2 units of packed red blood cells with dialysis. Tolerating dialysis treatment without any problems. 2. Hypertension: Blood pressure is stable. Continue to monitor closely. 3. Anemia of chronic disease: Transfuse 2 units of packed red blood cells. He is to also continue with his Epogen in the outpatient setting, as well as intravenous iron. Will follow the patient closely with you and make further recommendations. Job#: [id number] RI cc:BERTHA ROACH MD
[2017-08-12] MEDS ORDERED: PROTONIX40 MG PO (16:15)
[2017-08-12 16:23] LABS: BASOPHILS # (AUTO) 0.1 (0.0-0.1); BASOPHILS % 0.8 % (0.0-1.0); EOSINOPHILS # (AUTO) 0.1 (0.0-0.4); EOSINOPHILS % 2.1 % (0.0-6.0); HEMATOCRIT 24.2 % (38.2-49.6); HEMOGLOBIN 7.4 g/dL (14.0-18.0); LYMPHOCYTES # (AUTO) 0.9 (1.0-3.2); LYMPHOCYTES % 13.9 % (18.0-39.1); MEAN CORPUSCULAR HEMOGLOBIN 27.9 pg (28-32); MEAN CORPUSCULAR HGB CONC 30.6 g/dL (31-35); MEAN CORPUSCULAR VOLUME 91.3 fL (81-99); MONOCYTES # (AUTO) 0.5 (0.2-0.8); MONOCYTES % 7.6 % (4.4-11.3); NEUTROPHILS # (AUTO) 4.7 (2.1-6.9); NEUTROPHILS % 75.1 % (38.7-80.0); PLATELET COUNT 251 x10e3/uL (140-360); RED BLOOD COUNT 2.65 x10e6/uL (4.3-5.7); RED CELL DISTRIBUTION WIDTH 16.4 % (11.7-14.4)
--- NOTE | 2017-08-12 17:12 | History and Physical ---
SHORTSTAY SUMMARY DATE OF DISCHARGE: 08/12/2017 PRIMARY CARE PROVIDER: Dr. Corbin, not on staff here. COIN BOX COLLECTOR: Dr. Barker ADMITTING DIAGNOSES 1. Symptomatic anemia due to end-stage renal disease. 2. End-stage renal disease on hemodialysis. 3. Hypertension complicated by end-stage renal disease. 4. Type-2 diabetes complicated by end-stage renal disease. DISCHARGE DIAGNOSES 1. Symptomatic anemia due to end-stage renal disease. 2. End-stage renal disease on hemodialysis. 3. Hypertension complicated by end-stage renal disease. 4. Type-2 diabetes complicated by end-stage renal disease. BRIEF HISTORY: Mr. Aponte is a 62-year-old gentleman who was sent from hemodialysis because of low hemoglobin. It was noted to be 5 at the dialysis center. It was 6.2 here in our ER and 5.3 when repeated prior to his transfusion. REVIEW OF SYSTEMS: He denies fever, chills or weight loss. He denies chest pain or palpitations. He denies shortness breath, wheezing or cough. He denies abdominal pain, nausea, vomiting or melena. He denies dysuria or flank pain. He denies rash or pruritus. He denies bleeding or bruising. He denies joint pain or swelling. He denies headache, vertigo or loss of consciousness. He denies depression, agitation, homicidal or suicidal ideation. PAST MEDICAL HISTORY: Significant for longstanding hypertension, type-2 diabetes, end-stage renal disease, COPD. MEDICATIONS: His regular medications include: 1. Aspirin 81 mg daily. 2. Clonidine as needed for blood pressure elevation. 3. Reglan 5 mg as needed for nausea. 4. Metoprolol 25 mg twice daily. 5. Nifedipine 60 mg twice daily. 6. Levemir insulin 17 units daily. SURGICAL HISTORY: He has a history of cholecystectomy. ALLERGIES: HE HAS STATED ALLERGIES TO CLINDAMYCIN, FUROSEMIDE, ACETAMINOPHEN, HYDROCODONE, CODEINE, MORPHINE, LISINOPRIL AND SULFA DRUGS. FAMILY HISTORY: Significant for hypertension and diabetes. SOCIAL HISTORY: The patient is . Turkish is his primary language. He does not smoke, drink or use illegal drugs. He is generally independently functioning. PHYSICAL EXAMINATION PSYCHIATRIC: He is alert and oriented times 3 with normal mood and affect. CONSTITUTIONAL: He has a normal body habitus. He is in no acute distress. VITAL SIGNS: Blood pressure 155/73. Pulse 69 and regular. Respiratory rate 20. O2 sat 98%. Temperature 98.2. HEENT: Head is atraumatic. His eyes are anicteric with clear conjunctivae. Ears and nares are without erythema or discharge. Oropharynx is clear. NECK: Supple. No mass or thyromegaly. LYMPHATIC SYSTEM: He has no palpable cervical, axillary or inguinal adenopathy. CARDIOVASCULAR: His heart has a regular rate and rhythm without murmur or extra heart sound. He has no carotid bruit. He has no peripheral edema. He has palpable dorsal pedal pulses. RESPIRATORY: Lungs are clear to auscultation and percussion with normal respiratory effort. GASTROINTESTINAL: Abdomen is soft without organomegaly, masses or tenderness. He has normal bowel sounds present. CUTANEOUS: His skin is warm and dry to touch with no rash or skin breakdown. MUSCULOSKELETAL: His joints are in normal alignment without erythema or swelling. He has no calf tenderness. NEUROLOGIC: Exam is nonfocal with intact cranial nerves and no motor or sensory deficits. DIAGNOSTIC STUDIES: Chest x-ray shows no acute disease. CBC shows a white count of 6 with a normal differential. Hemoglobin 5.3, hematocrit 18.6 and platelet count 245,000. His chemistry shows normal electrolytes, CO2 31, creatinine 3.59 and BUN 17 for GFR 17. Calcium 9.1. Glucose 128. Transaminases, bilirubin and alk phos are normal. IMPRESSION AND PLAN 1. Anemia due to end-stage renal disease. The patient will be transfused 2 units of packed red cells during hemodialysis, and he has been started on Protonix as a proton pump inhibitor. 2. End-stage renal disease on hemodialysis. Nephrology has been consulted for the patient to have hemodialysis, which he has completed today and has had his 2 units of blood during his dialysis. 3. Hypertension complicated by end-stage renal disease. Patient is stable. Will continue his home meds. 4. Type-2 diabetes complicated by end-stage renal disease. Will use sliding-scale insulin for now. The patient can resume his Levemir when he is discharged. HOSPITAL COURSE: The patient was admitted to the floor overnight. He received his 2 units of blood during his dialysis. He was cleared by nephrology to leave after that. Stat H and H was drawn prior to discharge. However, the results are still pending at the time of discharge. He will be sent home to resume all of his regular medications plus Protonix 40 mg q.a.m. and metoclopramide before meals. He can resume a diabetic renal diet and activity as tolerated. He will follow up with his regular hemodialysis schedule and can follow up with his PCP within 2 weeks. Job#: [id number]
== END 2017-08-12 18:35 | disposition home or self-care (01) ==
LOC: ER 21:26 → ERHOLD 23:10 → IMCU 23:38
PROVIDERS: ADMIT Internal Medicine; ATTEND Internal Medicine
DX: I12.0 Hypertensive chronic kidney disease with stage 5 chronic kidney disease or end stage renal disease (principal); N18.6 End stage renal disease; Z99.2 Dependence on renal dialysis; D63.1 Anemia in chronic kidney disease; E11.22 Type 2 diabetes mellitus with diabetic chronic kidney disease; J44.9 Chronic obstructive pulmonary disease, unspecified; Z88.6 Allergy status to analgesic agent; Z88.1 Allergy status to other antibiotic agents; Z88.5 Allergy status to narcotic agent; Z88.2 Allergy status to sulfonamides; Z88.8 Allergy status to other drugs, medicaments and biological substances; Z79.4 Long term (current) use of insulin
CPT/HCPCS: 36430; 90935; P9016; 36415; 71045; 80053; 82948; 85025; 86704; 86706; 86850; 86900; 86920; 87340; 90962; 99284; G0378; J7030

== ENCOUNTER 2017-12-11 23:05 | Observation (INO) | payer OTHER ==
[~2017-12-11] VITALS: Ht 180.3 cm; Wt 103.0 kg
[~2017-12-11 23:05] MED LIST changes: +PROTONIX40 MG PO
[2017-12-12] VITALS (8 sets, daily range): BP systolic 161–188; BP diastolic 73–90
[2017-12-12] MEDS ORDERED: DIATRIZOATE MEGL/DIATRIZOA SOD 30 ML BTL PO ONE (00:49)
[2017-12-12 01:08] LABS: BASOPHILS # (AUTO) 0.1 (0.0-0.1); BASOPHILS % 1.3 % (0.0-1.0); EOSINOPHILS # (AUTO) 0.2 (0.0-0.4); EOSINOPHILS % 3.6 % (0.0-6.0); HEMATOCRIT 31.6 % (38.2-49.6); LYMPHOCYTES % 16.3 % (18.0-39.1); MEAN CORPUSCULAR HEMOGLOBIN 29.6 pg (28-32); MEAN CORPUSCULAR HGB CONC 31.6 g/dL (31-35); MEAN CORPUSCULAR VOLUME 93.5 fL (81-99); MONOCYTES # (AUTO) 0.4 (0.2-0.8); MONOCYTES % 5.5 % (4.4-11.3); NEUTROPHILS # (AUTO) 4.7 (2.1-6.9); NEUTROPHILS % 73.1 % (38.7-80.0); PLATELET COUNT 152 x10e3/uL (140-360); RED BLOOD COUNT 3.38 x10e6/uL (4.3-5.7); RED CELL DISTRIBUTION WIDTH 15.9 % (11.7-14.4)
[2017-12-12 01:20] LABS: INR 1.28
[2017-12-12 01:21] LABS: PARTIAL THROMBOPLASTIN TIME 28.1 seconds (23.8-35.5)
[2017-12-12 01:50] LABS: ALBUMIN 3.6 g/dL (3.5-5.0); ALBUMIN/GLOBULIN RATIO 0.9 (0.8-2.0); ANION GAP 20.8 mmol/L (8-16); CALCIUM 9.4 mg/dL (8.4-10.2); CREATININE, SERUM 7.96 mg/dL (0.72-1.25); MAGNESIUM 1.9 MG/DL (1.3-2.1)
[2017-12-12 01:52] LABS: POTASSIUM 6.8 mmol/L (3.5-5.1)
[2017-12-12 01:58] LABS: CREATINE KINASE MB 0.8 ng/mL (0-5.0)
[2017-12-12] MEDS ORDERED: DEXTROSE 50% SYRINGE 50 ML IV STA (02:27)
[2017-12-12] MEDS ORDERED: SODIUM BICARBONATE 8.4% INJ 50 ML SYR IV STA ×2 (02:27→03:32)
[2017-12-12] MEDS ORDERED: SOD POLYSTYRENE SULFONATE SUSP 15 GM/60 ML BTL PO ONE (02:30)
[2017-12-12] MEDS ORDERED: INSULIN REGULAR, HUMAN 100 UNIT/1 ML 3ML VIAL IV ONE (02:30)
[2017-12-12] MEDS ORDERED: ALBUTEROL SULF 0.083% NEB SOLN 3 ML NEB NEB STA (02:47)
--- NOTE | 2017-12-12 03:12 | Diagnostic Imaging Report ---
EXAM: CT ABDOMEN AND PELVIS without IV CONTRAST INDICATION: Constipation, abdominal pain COMPARISON: None TECHNIQUE: The abdomen and pelvis were scanned using a multidetector helical scanner. Coronal and sagittal reformations were obtained. Dose modulation, iterative reconstruction, and/or weight based adjustment of the mA/kV was utilized to reduce the radiation dose to as low as reasonably achievable. Routine protocol performed. IV Contrast: None Oral Contrast: There is positive oral contrast in the small bowel. CTDIvol has been reviewed. It is below the limits set by the Radiation Protocol Committee (RPC). FINDINGS: LOWER THORAX: Small right pleural effusion with adjacent atelectasis. LIVER: No masses BILIARY: Cholecystectomy. No ductal dilation. SPLEEN: No masses PANCREAS: No masses ADRENALS: No nodules RIGHT KIDNEY: Atrophic. Simple exophytic cyst measuring 1.5 cm lateral aspect of the inferior pole. LEFT KIDNEY: Atrophic. No hydronephrosis. GI TRACT: No wall thickening or obstruction. Normal appendix. VESSELS: Advanced atherosclerotic changes of the abdominal aorta without aneurysm. PERITONEUM/RETROPERITONEUM: Trace ascites in the right upper quadrant of the abdomen. LYMPH NODES: No lymphadenopathy REPRODUCTIVE ORGANS: Normal BLADDER: Normal SOFT TISSUES: Right sided subcutaneous edema. BONES: No suspicious bone lesions. IMPRESSION: Mild to moderate colonic stool. No bowel obstruction. Right-sided subcutaneous edema and small right pleural effusion. Signed by: Dr. Dianelys Gomez M.D. on 12/12/2017 3:08 AM
[2017-12-12] MEDS ORDERED: ZOLPIDEM TARTRA10 MG PO (03:29)
[2017-12-12] MEDS ORDERED: REGLAN10 MG PO (03:29)
[2017-12-12] MEDS ORDERED: HYDRALAZINE HCL50 MG PO (03:29)
[2017-12-12] MEDS ORDERED: ZOFRAN ODT4 MG PO (03:29)
[2017-12-12] MEDS ORDERED: CARVEDILOL6.25 MG PO (03:29)
[2017-12-12] MEDS ORDERED: ONDANSETRON HCL INJ 2 MG/ML VIAL IV PRN (04:00)
[2017-12-12] MEDS ORDERED: DEXTROSE 50% SYRINGE 50 ML IV PRN (04:00)
[2017-12-12] MEDS: INSULIN REGULAR, HUMAN 100 UNIT/1 ML 3ML VIAL SQ SCH ×4 (07:26→21:00)
--- NOTE | 2017-12-12 08:55 | Consultation ---
DATE OF CONSULTATION: December 12, 2017 RENAL CONSULTATION Thank you for the consult. Mr. Aponte is a pleasant 62-year-old male patient with a past medical history for end-stage renal disease, on hemodialysis on Monday, Monday and Monday at [facility] dialysis facility in [place] under my care. The patient missed his dialysis treatment on Monday. The patient apparently has been having constipation according to the patient for several days now, almost 9-10 days. He had tried lactulose over the weekend and did not work for him. He presented to the ER last night. He also missed his dialysis. Early this morning, his labs were checked. Potassium was 6.8. He is admitted for hyperkalemia and requiring urgent dialysis. He did as part of his workup have a CT scan done, and the CT scan stated mild to moderate colonic stool, but no substantial stool there and no bowel obstruction. Renal consultation has been asked to provide his dialysis while he is here. At this time, no nausea. No vomiting. No chest pain. No fever. No chills. No abdominal pain. No diarrhea. No vomiting. No other symptoms. PAST MEDICAL HISTORY: End-stage renal disease, history of hypertension, history of diabetes mellitus, history of Charcot foot, history of amputation. ALLERGIES: TO SEVERAL DRUGS. REVIEWED PER CHART. MEDICATIONS: Reviewed per chart. FAMILY HISTORY: Noncontributory. SOCIAL HISTORY: No tobacco, No alcohol. REVIEW OF SYSTEMS: See HPI. Also, negative. PHYSICAL EXAMINATION VITALS: Blood pressure 160/70, 72 pulse and afebrile. HEENT: No cervical lymphadenopathy. NECK: Supple without masses. No JVD. Moist appearing mucosa moist with good skin turgor. CHEST: Good expansion. No chest wall tenderness. Lungs are clear to auscultation bilaterally. CARDIAC: S1 and S2. No rubs, gallops or murmurs. ABDOMEN: Soft. Positive bowel sounds. Nontender. EXTREMITIES: No lower extremity edema. No clubbing. No cyanosis. NEUROLOGIC: Awake, alert and oriented times 3. Nonfocal exam. LABS: As follows: Potassium 6.8, sodium 134, BUN 65, creatinine 7.96. H and H 10 and 31.6. IMPRESSION AND PLAN 1. End-stage renal disease: The patient is having dialysis. Seen on dialysis treatment and tolerating without problems. From a renal standpoint, can be discharged after dialysis. He needs to come for his dialysis treatment tomorrow. 2. Hypertension: Blood pressure is more stable. Will address outpatient. 3. Anemia of chronic disease, stable. 4. Constipation: Mild to moderate degree on the computerized tomography scan. Recommend to give the patient laxatives. The patient can be discharged from a renal standpoint. Follow up in the dialysis outpatient. Job#: [id number] [place] cc:LEX COMBS MD
[2017-12-12 13:25] LABS: CHOL/HDL RATIO 3.9 (3.9-4.7)
[2017-12-12] MEDS ORDERED: ZOLPIDEM TARTRATE 10 MG TAB PO PRN (14:00)
[2017-12-12] MEDS ORDERED: CLONIDINE HCL 0.1 MG TAB PO PRN (14:00)
[2017-12-12] MEDS ORDERED: ASPIRIN 81 MG CHEW TAB PO ONE ×2 (14:15)
[2017-12-12 14:33] LABS: CREATINE KINASE MB 0.9 ng/mL (0-5.0)
[2017-12-12] MEDS ORDERED: SOD PHOSPHATE/SOD BIPHOSPHATE ENEMA 132 ML BTL PR ONE ×2 (15:00→17:10)
--- NOTE | 2017-12-12 15:06 | Consultation ---
DATE OF CONSULTATION: December 12, 2017 REASON FOR CONSULTATION: Chest pain. CONSULTING PHYSICIAN: Dr. Patricia Hardy. HISTORY OF PRESENTING ILLNESS: This is a 62-year-old male with multiple medical problems that presented due to constipation. He stated for the last 10 days, he did not have any bowel movement. He took some Imodium. Still had no bowel movement and he decided to come into the emergency room for evaluation. He has history of noncompliance, end-stage renal disease on dialysis. He also complained of chest pain and cardiology was consulted. He described it as a left substernal chest pain during dialysis, on a scale of 5/10, with no radiation. He denied any palpitation, any diaphoresis, any headache, any nausea or vomiting. Troponin x1 was negative. EKG showed normal sinus rhythm with no ST abnormalities. PAST MEDICAL HISTORY: Hypertension, diabetes, CAD, end-stage renal disease on dialysis, hyperlipidemia, osteomyelitis, DVT, anemia of chronic disease, PAD, PVD. PAST SURGICAL HISTORY: AV fistula, cholecystectomy, and right foot surgery. FAMILY HISTORY: Noncontributory. SOCIAL HISTORY: No smoking, no drinking. MEDICATIONS: See med list. ALLERGY: HE HAS MULTIPLE ALLERGIES; SEE CHART. REVIEW OF SYSTEMS: Negative except as mentioned above. Is positive for constipation and chest pain. PHYSICAL EXAMINATION VITAL SIGNS: Temperature 97, heart rate 70, blood pressure 161/76, respirations 19, oxygen saturation 100% on 2 L nasal cannula. GENERAL: He is awake, alert, and oriented x3. HEENT: Mucous membranes moist. NECK: Supple. LUNGS: Bilaterally clear to auscultation. CARDIOVASCULAR: S1, S2 present. ABDOMEN: Soft. NEUROLOGICAL: Intact. He is able to move all extremities. EXTREMITIES: Bilateral lower extremities with no edema. LABS: Sodium 134, potassium 6.8, chloride 100, CO2 20, BUN 65, creatinine 7.96, glucose 128, white blood cells 6.40, hemoglobin 10.0, hematocrit 31.6, platelets 152. PT 15.0, PTT 28.1, INR 1.28. IMPRESSION 1. Chest pain. 2. Diabetes. 3. Hypertension. 4. Constipation. 5. End-stage renal disease on dialysis. 6. History of peripheral artery disease, peripheral vascular disease, and deep vein thrombosis. ASSESSMENT PLAN: 1. Had a CT of the abdomen and pelvis done that showed mild to moderate colonic stool with no bowel obstruction. 2. Will go ahead and get serial cardiac enzymes. Will get an echocardiogram to reassess the LV and the valve function. He had refused any cardiac procedure 2016, 2017, and he again refused cardiac catheterization today. He also refused cardiac stress test in the past and he also refused today. Will go ahead and continue his home medications. Further cardiac workup pending clinical course. Thank you for this consultation. Dictated by Sona Reveles NP Job#: [id number] [place]
[2017-12-12] MEDS: HYDRALAZINE HCL 25 MG TAB PO SCH ×2 (16:59→21:44)
[2017-12-12] MEDS ORDERED: NON-FORMULARY MEDICATION (Hydralazine Hcl 50 MG) PO SCH (17:00)
[2017-12-12] MEDS ORDERED: NON-FORMULARY MEDICATION (Carvedilol 6.25 MG) PO SCH (17:00)
[2017-12-12] MEDS: CARVEDILOL 3.125 MG TAB PO SCH ×2 (17:00→21:44)
[2017-12-12] MEDS ORDERED: NIFEDIPINE CR 30 MG TAB PO SCH (17:00)
[2017-12-12 18:36] LABS: CREATINE KINASE MB 0.9 ng/mL (0-5.0)
[2017-12-13] MEDS ORDERED: ONDANSETRON HCL 4 MG ORAL DISINTEGRATING TAB PO SCH (09:00)
[2017-12-13] MEDS ORDERED: METOCLOPRAMIDE HCL 10 MG TAB PO SCH (09:00)
== END 2017-12-12 23:59 | disposition home or self-care (01) ==
LOC: ER 23:05 → ERHOLD 12-12 03:53 → IMCU 12-12 04:24
DX: K59.00 Constipation, unspecified (principal); I12.0 Hypertensive chronic kidney disease with stage 5 chronic kidney disease or end stage renal disease; N18.6 End stage renal disease; Z99.2 Dependence on renal dialysis; E87.5 Hyperkalemia; Z82.49 Family history of ischemic heart disease and other diseases of the circulatory system; Z88.6 Allergy status to analgesic agent; Z88.1 Allergy status to other antibiotic agents; Z88.5 Allergy status to narcotic agent; Z88.2 Allergy status to sulfonamides; Z88.8 Allergy status to other drugs, medicaments and biological substances; I25.10 Atherosclerotic heart disease of native coronary artery without angina pectoris; D63.8 Anemia in other chronic diseases classified elsewhere; E11.22 Type 2 diabetes mellitus with diabetic chronic kidney disease; R07.9 Chest pain, unspecified; E11.51 Type 2 diabetes mellitus with diabetic peripheral angiopathy without gangrene; Z86.718 Personal history of other venous thrombosis and embolism
CPT/HCPCS: 36415; 74176; 80053; 80061; 82550; 82553; 82948; 83735; 84484; 85025; 85610; 85730; 86704; 86706; 87340; 90935; 93005; 99284; G0378; J2405; J7799